=== PATIENT | female | born 1965 | race African-American/Black ===

== ENCOUNTER 2020-03-30 09:22 | Outpatient (REF) | payer MEDICARE, MEDICAID, SELFPAY ==
[2020-03-30 10:52] LABS: Alanine Aminotransferase 16 U/L (0-31); Albumin Level 4.2 g/dL (3.5-5.0); Alkaline Phosphatase 158 U/L (39-117); Anion Gap 12 (12-20); Aspartate Amino Transferase 15 U/L (5-31); Bilirubin Total 0.4 mg/dL (0.0-1.0); Blood Urea Nitrogen 4 mg/dL (9-16); Calcium 8.8 mg/dL (8.4-10.2); Carbon Dioxide 30 mmol/L (22-29); Chloride 104 mmol/L (96-108); Cholesterol 103 mg/dL; Estimated Glomerular Filt Rate > 60; Glucose Fasting 120 mg/dL (60-99); HDL Cholesterol 42 mg/dL; LDL Cholesterol Calculated 50 mg/dl; Potassium 4.2 mmol/l (3.3-5.1); Sodium 142 mmol/L (135-145); Total Protein 7.2 g/dL (6.5-8.0); Triglycerides 55 mg/dL
== END 2020-03-30 09:23 | disposition home or self-care (01) ==
LOC: HO.LAB 09:22
PROVIDERS: PCP Internal Medicine; Visit Provider Internal Medicine
DX: E11.9 Type 2 diabetes mellitus without complications (principal); E78.00 Pure hypercholesterolemia, unspecified
CPT/HCPCS: 36415; 80053; 80061

== ENCOUNTER → 2020-04-07 08:43 | Outpatient (BNVA) | payer MEDICARE, MEDICAID, SELFPAY | PROVIDERS: PCP Internal Medicine; Referring Provider Internal Medicine; Visit Provider Nurse Practitioner | DX: K59.04 Chronic idiopathic constipation (principal); K21.9 Gastro-esophageal reflux disease without esophagitis; R10.13 Epigastric pain; R19.7 Diarrhea, unspecified; R10.10 Upper abdominal pain, unspecified; K92.1 Melena | CPT/HCPCS: 99212; Q3014 ==

== ENCOUNTER 2020-06-15 08:28 | Outpatient (REF) | payer MEDICARE, MEDICAID, SELFPAY ==
--- NOTE | ~2020-06-15 | MM_ITS ---
EXAMINATION: MM SCREENING DIGITAL BREAST TOMOSYNTHESIS, BILATERAL CLINICAL INFORMATION: Screening. Asymptomatic. The lifetime risk of breast cancer based on the Tyrer-Cuzick Model is 5%. COMPARISON: Mammography: 03/05/2019, 02/27/2018, 09/25/2016 TECHNIQUE: Digital breast tomosynthesis is performed in both the craniocaudal and mediolateral oblique views along with computer-aided detection (CAD). Synthesized 2D images are generated from the tomosynthesis. FINDINGS: There are scattered areas of fibroglandular density (ACR BI-RADS breast composition Category b). There are no significant masses, abnormal calcifications, or other abnormalities. Parenchymal pattern is similar to prior studies. No significant changes. MM/MM tomosynthesis screening BI IMPRESSION: No mammographic evidence of malignancy. ASSESSMENT: BI-RADS 1: Negative RECOMMENDATION: Routine annual mammography screening. This patient's information was entered into a reminder system with a target due date for their next mammogram.
== END 2020-06-15 08:29 | disposition home or self-care (01) ==
LOC: HO.MAMMO 08:28
PROVIDERS: Visit Provider Internal Medicine
DX: Z12.31 Encounter for screening mammogram for malignant neoplasm of breast (principal)
CPT/HCPCS: 77063; 77067

== ENCOUNTER → 2020-09-29 08:22 | Outpatient (BNVA) | payer MEDICARE, MEDICAID, SELFPAY | PROVIDERS: Visit Provider Nurse Practitioner | DX: K21.9 Gastro-esophageal reflux disease without esophagitis (principal); K59.04 Chronic idiopathic constipation; K59.03 Drug induced constipation; R10.13 Epigastric pain; T40.2X5D Adverse effect of other opioids, subsequent encounter | CPT/HCPCS: Q3014 ==

== ENCOUNTER 2020-10-18 10:01 | Outpatient (REF) | payer MEDICARE, MEDICAID, SELFPAY ==
[2020-10-18 12:30] LABS: Alanine Aminotransferase 17 U/L (0-31); Albumin Level 4.2 g/dL (3.5-5.0); Alkaline Phosphatase 127 U/L (39-117); Anion Gap 12 (12-20); Aspartate Amino Transferase 17 U/L (5-31); Bilirubin Total 0.5 mg/dL (0.0-1.0); Blood Urea Nitrogen 9 mg/dL (9-16); Calcium 9.9 mg/dL (8.4-10.2); Carbon Dioxide 30 mmol/L (22-29); Chloride 106 mmol/L (96-108); Cholesterol 155 mg/dL; Estimated Glomerular Filt Rate > 60; HDL Cholesterol 48 mg/dL; LDL Cholesterol Calculated 86 mg/dl; Potassium 4.7 mmol/L (3.3-5.1); Sodium 143 mmol/L (135-145); Total Protein 7.5 g/dL (6.5-8.0); Triglycerides 106 mg/dL
[2020-10-18 12:40] LABS: Glucose Fasting 112 mg/dL (60-99)
[2020-10-18 13:52] LABS: Creatinine Urine 127.31 mg/dL; Microalbum/Creatinine Ratio Ur 4.7 ug/mg cr
== END 2020-10-18 10:02 | disposition home or self-care (01) ==
LOC: HO.LAB 10:01
PROVIDERS: Visit Provider Internal Medicine
DX: E11.9 Type 2 diabetes mellitus without complications (principal); E78.5 Hyperlipidemia, unspecified
CPT/HCPCS: 36415; 80053; 80061; 82043

== ENCOUNTER 2020-11-01 08:29 | Outpatient (REF) | payer MEDICARE, MEDICAID, SELFPAY ==
[2020-11-01 12:53] LABS: Thyroid Stimulating Hormone 4.15 uIU/mL (0.32-4.0)
[2020-11-02 11:45] LABS: Follicle Stimulating Hormone 44.4 mIU/mL
== END 2020-11-01 08:30 | disposition home or self-care (01) ==
LOC: HO.LAB 08:29
PROVIDERS: PCP Internal Medicine; Visit Provider Advanced Practice Midwife
DX: R23.2 Flushing (principal); M81.0 Age-related osteoporosis without current pathological fracture
CPT/HCPCS: 36415; 83001; 84443; 99202

== ENCOUNTER → 2020-11-09 13:16 | Outpatient (BNVA) | payer MEDICARE, MEDICAID, SELFPAY | PROVIDERS: PCP Internal Medicine; Visit Provider Advanced Practice Midwife | CPT/HCPCS: Q3014 ==

== ENCOUNTER 2020-11-15 10:04 | Outpatient (REF) | payer MEDICARE, MEDICAID, SELFPAY ==
[2020-11-15 10:53] LABS: MANUAL DIFF FLAG NO
[2020-11-15 10:55] LABS: Basophils Absolute Auto 0.1 X10*3/uL (0.0-0.2); Basophils Percent Auto 0.8 % (0-2); Eosinophils Absolute Auto 0.2 X10*3/uL (0.0-0.4); Eosinophils Percent Auto 2.1 % (0-4); Hematocrit 40.1 % (37-47); Hemoglobin 12.7 g/dl (12.0-16.0); Imm Gran Abs Auto 0.01 X10*3/uL (0.00-0.03); Imm Gran Pct Auto 0.1 % (0.0-0.4); Lymphocytes Absolute Auto 2.4 X10*3/uL (1.2-4.9); Lymphocytes Percent Auto 32.5 % (20-40); Mean Corpuscular HGB Conc 31.7 g/dl (31.0-35.0); Mean Corpuscular Hemoglobin 27.9 pg (27.0-33.0); Mean Corpuscular Volume 87.9 fL (80-98); Mean Platelet Volume 10.3 fL (9.4-12.3); Monocytes Absolute Auto 0.5 X10*3/uL (0.1-1.2); Monocytes Percent Auto 7.3 % (2-11); Neutrophils Absolute Auto 4.2 X10*3/uL (2.0-8.3); Neutrophils Percent Auto 57.2 % (45-73); Platelet Count 302 X10*3/uL (160-400); Red Blood Count 4.56 X10*6/uL (4.20-5.50); Red Cell Distribution Width 13.4 % (11.0-16.0); White Blood Count 7.3 X10*3/uL (4.8-10.8)
[2020-11-15 11:37] LABS: Thyroid Stimulating Hormone 3.35 uIU/mL (0.32-4.0)
[2020-11-15 12:05] LABS: Folate > 20.0 ng/mL (> or = 4.0); Vitamin B12 645 pg/mL (200-900)
[2020-11-19 11:30] LABS: Testosterone, Total 5 ng/dL (2-45)
[2020-11-19 17:05] LABS: Vitamin D 25-OH, D2 <4 ng/mL; Vitamin D 25-OH, D3 26 ng/mL; Vitamin D 25-OH, Total 26 ng/mL (30-100)
[2020-11-20 21:47] LABS: Progesterone <0.1 ng/mL
[2020-11-21 12:46] LABS: Follicle Stimulating Hormone 39.4 mIU/mL; Triiodothyronine T3 Free 2.8 pg/mL (2.3-4.2)
[2020-11-23 01:51] LABS: Estradiol, Ultrasensitive 4 pg/mL
== END 2020-11-15 10:05 | disposition home or self-care (01) ==
LOC: HO.LAB 10:04
PROVIDERS: PCP Internal Medicine; Visit Provider Internal Medicine
DX: R23.2 Flushing (principal); E55.9 Vitamin D deficiency, unspecified; D64.9 Anemia, unspecified
CPT/HCPCS: 36415; 82306; 82607; 82670; 82681; 82746; 83001; 84144; 84403; 84443; 84481; 85025

== ENCOUNTER 2021-05-23 09:40 | Outpatient (REF) | payer MEDICARE, MEDICAID, SELFPAY ==
[2021-05-23 10:21] LABS: MANUAL DIFF FLAG NO
[2021-05-23 10:43] LABS: Basophils Absolute Auto 0.1 X10*3/uL (0.0-0.2); Basophils Percent Auto 0.8 % (0-2); Eosinophils Absolute Auto 0.2 X10*3/uL (0.0-0.4); Eosinophils Percent Auto 1.9 % (0-4); Hematocrit 40.1 % (37.0-47.0); Hemoglobin 12.6 g/dl (12.0-16.0); Imm Gran Abs Auto 0.02 X10*3/uL (0.00-0.03); Imm Gran Pct Auto 0.2 % (0.0-0.4); Lymphocytes Absolute Auto 2.2 X10*3/uL (1.2-4.9); Lymphocytes Percent Auto 25.9 % (20-40); Mean Corpuscular HGB Conc 31.4 g/dl (31.0-35.0); Mean Corpuscular Hemoglobin 28.1 pg (27.0-33.0); Mean Corpuscular Volume 89.3 fL (80.0-98.0); Mean Platelet Volume 10.1 fL (9.4-12.3); Monocytes Absolute Auto 0.8 X10*3/uL (0.1-1.2); Monocytes Percent Auto 9.2 % (2-11); Neutrophils Absolute Auto 5.2 x10*3/uL (2.0-8.3); Platelet Count 334 X10*3/uL (160-400); Red Blood Count 4.49 X10*6/uL (4.20-5.50); Red Cell Distribution Width 13.5 % (11.0-16.0); White Blood Count 8.3 X10*3/uL (4.8-10.8)
[2021-05-23 11:06] LABS: Creatinine Urine 103.46 mg/dL; Microalbumin Urine < 5.0 mg/L
[2021-05-23 11:16] LABS: Alanine Aminotransferase 16 U/L (0-31); Alkaline Phosphatase 151 U/L (39-117); Anion Gap 12 (12-20); Aspartate Amino Transferase 17 U/L (5-31); Bilirubin Total 0.6 mg/dL (0.0-1.0); Blood Urea Nitrogen 14 mg/dL (9-16); Calcium 9.6 mg/dL (8.4-10.2); Carbon Dioxide 29 mmol/L (22-29); Chloride 108 mmol/L (96-108); Cholesterol 131 mg/dL; Estimated Glomerular Filt Rate > 60; Glucose Fasting 106 mg/dL (60-99); HDL Cholesterol 45 mg/dL; LDL Cholesterol Calculated 72 mg/dl; Potassium 4.9 mmol/L (3.3-5.1); Sodium 144 mmol/L (135-145); Total Protein 7.2 g/dL (6.5-8.0); Triglycerides 70 mg/dL
[2021-05-23 11:29] LABS: Free T4 (Free Thyroxine) 0.84 ng/dL (0.71-1.85); Thyroid Stimulating Hormone 1.31 uIU/mL (0.32-4.0)
[2021-05-24 09:41] LABS: Thyroglobulin Antibodies <1 IU/mL (< or = 1); Thyroid Peroxidase Antibodies 1 IU/mL (<9)
[2021-05-29 18:21] LABS: Vitamin D 25-OH, D2 <4 ng/mL; Vitamin D 25-OH, D3 21 ng/mL; Vitamin D 25-OH, Total 21 ng/mL (30-100)
== END 2021-05-23 09:41 | disposition home or self-care (01) ==
LOC: HO.LAB 09:40
PROVIDERS: PCP Internal Medicine; Visit Provider Internal Medicine
DX: R79.89 Other specified abnormal findings of blood chemistry (principal); E11.9 Type 2 diabetes mellitus without complications; E55.9 Vitamin D deficiency, unspecified; E78.5 Hyperlipidemia, unspecified; M79.7 Fibromyalgia
CPT/HCPCS: 36415; 80053; 80061; 82043; 82306; 84439; 84443; 85025; 86376; 86800

== ENCOUNTER 2021-06-16 09:03 | Outpatient (REF) | payer MEDICARE, MEDICAID, SELFPAY ==
--- NOTE | ~2021-06-16 | MM_ITS ---
EXAMINATION: MM SCREENING DIGITAL BREAST TOMOSYNTHESIS, BILATERAL CLINICAL INFORMATION: Screening. Asymptomatic. The lifetime risk of breast cancer based on the Tyrer-Cuzick Model is 7%. COMPARISON: Mammography: 06/15/2020, 03/05/2019, 02/27/2018 TECHNIQUE: Digital breast tomosynthesis is performed in both the craniocaudal and mediolateral oblique views along with computer-aided detection (CAD). Synthesized 2D images are generated from the tomosynthesis. Additional right MLO view is provided. FINDINGS: There are scattered areas of fibroglandular density (ACR BI-RADS breast composition Category b). There are no significant masses, abnormal calcifications, or other abnormalities. There is no developing density or architectural abnormality. No significant changes. MM/MM tomosynthesis screening BI IMPRESSION: No mammographic evidence of malignancy. ASSESSMENT: BI-RADS 1: Negative RECOMMENDATION: Routine annual mammography screening. This patient's information was entered into a reminder system with a target due date for their next mammogram.
== END 2021-06-16 09:04 | disposition home or self-care (01) ==
LOC: HO.MAMMO 09:03
PROVIDERS: Visit Provider Internal Medicine
DX: Z12.31 Encounter for screening mammogram for malignant neoplasm of breast (principal)
CPT/HCPCS: 77063; 77067

== ENCOUNTER → 2021-11-14 10:44 | Outpatient (BNVA) | payer MEDICARE, MEDICAID, SELFPAY | PROVIDERS: PCP Internal Medicine; Referring Provider Internal Medicine; Visit Provider Nurse Practitioner | DX: K59.04 Chronic idiopathic constipation (principal); K21.9 Gastro-esophageal reflux disease without esophagitis | CPT/HCPCS: 99212 ==

== ENCOUNTER 2022-06-04 11:55 | Outpatient (REF) | payer MEDICARE, MEDICAID, SELFPAY ==
[2022-06-04 15:43] LABS: Creatinine Urine 211.36 mg/dL; Microalbum/Creatinine Ratio Ur 6.1 ug/mg cr
[2022-06-04 16:20] LABS: Alanine Aminotransferase 26 U/L (0-31); Albumin Level 4.5 g/dL (3.5-5.0); Alkaline Phosphatase 122 U/L (39-117); Anion Gap 11 (12-20); Aspartate Amino Transferase 22 U/L (5-31); Bilirubin Total 0.4 mg/dL (0.0-1.0); Blood Urea Nitrogen 19 mg/dL (9-16); Calcium 9.7 mg/dL (8.4-10.2); Carbon Dioxide 31 mmol/L (22-29); Chloride 105 mmol/L (96-108); Cholesterol 173 mg/dL; Estimated Glomerular Filt Rate > 60; Glucose Fasting 95 mg/dL (60-99); HDL Cholesterol 58 mg/dL; LDL Cholesterol Calculated 104 mg/dl; Sodium 142 mmol/L (135-145); Total Protein 7.5 g/dL (6.5-8.0); Triglycerides 58 mg/dL
[2022-06-04 16:30] LABS: Vitamin D 25-OH Total 30.6 ng/mL (>30)
== END 2022-06-04 11:56 | disposition home or self-care (01) ==
LOC: HO.LAB 11:55
PROVIDERS: PCP Internal Medicine; Visit Provider Internal Medicine
DX: K21.9 Gastro-esophageal reflux disease without esophagitis (principal); R10.13 Epigastric pain; K59.03 Drug induced constipation; K59.04 Chronic idiopathic constipation; T40.2X5A Adverse effect of other opioids, initial encounter; E78.5 Hyperlipidemia, unspecified; E11.9 Type 2 diabetes mellitus without complications; E55.9 Vitamin D deficiency, unspecified
CPT/HCPCS: 36415; 80053; 80061; 82043; 82306; 99212

== ENCOUNTER 2022-07-31 12:39 | Outpatient (REF) | payer MEDICARE, MEDICAID, SELFPAY ==
--- NOTE | ~2022-07-31 | MM_ITS ---
EXAMINATION: MM SCREENING DIGITAL BREAST TOMOSYNTHESIS, BILATERAL CLINICAL INFORMATION: Screening. Asymptomatic. The lifetime risk of breast cancer based on the Tyrer-Cuzick Model is 7%. COMPARISON: Mammography: 06/16/2021, 06/15/2020, 03/05/2019 TECHNIQUE: Digital breast tomosynthesis is performed in both the craniocaudal and mediolateral oblique views along with computer-aided detection (CAD). Synthesized 2D images are generated from the tomosynthesis. FINDINGS: There are scattered areas of fibroglandular density (ACR BI-RADS breast composition Category b). There are no significant masses, abnormal calcifications, or other abnormalities. Parenchymal pattern is similar to prior studies. There is no developing density or architectural abnormality. The axilla and skin contours are unremarkable. No significant changes. MM/MM tomosynthesis screening BI IMPRESSION: No mammographic evidence of malignancy. ASSESSMENT: BI-RADS 1: Negative RECOMMENDATION: Routine annual mammography screening. This patient's information was entered into a reminder system with a target due date for their next mammogram.
== END 2022-07-31 12:40 | disposition home or self-care (01) ==
LOC: HO.MAMMO 12:39
PROVIDERS: PCP Internal Medicine; Visit Provider Internal Medicine
DX: Z12.31 Encounter for screening mammogram for malignant neoplasm of breast (principal)
CPT/HCPCS: 77063; 77067

== ENCOUNTER 2022-10-30 09:50 | Outpatient (AMB) | payer MEDICARE, MEDICAID, SELFPAY ==
[2022-10-30 09:54] VITALS: BP 122/74; PULSE 59; O2SAT 97; BMI 33.6
--- NOTE | 2022-10-30 09:54 | AM.OFFVISMDC ---
Intake Vital Signs 10/30/22 09:54 Height 5 ft 6 in Weight 208 lb BMI 33.6 BP 122/74 Blood Pressure Location Lt brachial Position Sitting Pulse 59 Pulse Source Pulse Oximeter Temp Source Skin Pulse Oximetry (%) 97 Oxygen Delivery Method Room Air Intake Visit Reasons: SAWV Intake Note: Patient is here for an Annual Wellness Visit. Structures Assembler Required: Yes Structures Assembler Language: Telugu Allergies ciprofloxacin [From CIPRO] Allergy (Severe, Verified 10/30/22 10:08) UNABLE TP MOVE lisinopril [LISINOPRIL] Allergy (Severe, Verified 10/30/22 10:08) ANGIOEDEMA seafood Allergy (Severe, Verified 10/30/22 10:08) Anaphylaxis duloxetine [From CYMBALTA] Allergy (Intermediate, Verified 10/30/22 10:08) ABDOMINAL PAIN (IN HIGHER THAN 30 MG DOSE) Medication List - Last Reconciled 10/30/22 by MONICA Mcbride albuterol sulfate 2.5 mg (3 mL) inhalation Q4-6H PRN 30 days amlodipine 5 mg PO DAILY 90 days atorvastatin 40 mg PO BEDTIME 90 days back brace As directed bisacodyl 10 mg (2 x 5 mg) PO BEDTIME blood sugar diagnostic (FreeStyle Test strips) Use 1 test strip once a day blood-glucose meter (FreeStyle Wren Lite kit) As directed dajkyfwygj-zxnwjplykzxml-rtod 50-325-40 mg 1 tab PO Q6H PRN 30 days dapagliflozin propanediol (Farxiga) 5 mg PO DAILY 90 days dexlansoprazole (Dexilant) 60 mg PO DAILY 90 days diclofenac potassium 50 mg PO BID epinephrine IM estradiol 0.01%(0.1mg/gram) 1 appful vaginal DAILY PRN 30 days fluticasone furoate-vilanterol 200-25 mcg/dose (Breo Ellipta) 1 ea inhalation DAILY fluticasone propionate 50 mcg/actuation 1 spray intranasal DAILY 30 days fremanezumab-vfrm (Ajovy Syringe) mg subcut hydroxyzine pamoate (Vistaril) 25 mg PO BID PRN lancets (TRUEplus Lancets) USE 1 LANCET EVERY DAY leg brace (Knee Brace Large-XLarge) As directed linaclotide (Linzess) 290 mcg PO DAILY 90 days metoprolol succinate ER 25 mg PO DAILY 90 days montelukast 10 mg PO DAILY oxycodone-acetaminophen 5-325 mg 1 tab PO TID PRN sertraline 100 mg PO DAILY [wipes As directed] zolpidem 10 mg PO BEDTIME PRN HPI SAWV HPI Details Patient is a 56-year-old female presents today for subsequent wellness visit.? Patient of Dr. Prince. Patient did have a negative mammogram 07/2022.? Patient reports history of normal Pap smear in 2021 that was done in [place], patient does have a history of total hysterectomy in 2012, she does not know if she still has her cervix or no. Up-to-date with immunizations. [place] of care was reviewed with the patient and she was provided with a screening schedule.? End of life planning was discussed with the patient and she was provided with healthcare proxy and MOLST forms. Patient is a Telugu-speaking and Juan Antonio was helping with interpretation. ? [facility] Medical History Abnormal TSH Anxiety Constipation due to opioid therapy Diabetes mellitus Dyslipidemia Essential hypertension Fibromyalgia Hot flashes Knee pain Lumbar degenerative disc disease Moderate major depression, single episode URI (upper respiratory infection) Surgical History H/O colonoscopy History of arthroscopy of right knee History of total abdominal hysterectomy and bilateral salpingo-oophorectomy History of tubal ligation Family History Father Diabetes Hypertension Mother Diabetes Hypertension Family/Other FH: mental illness Brother No problems noted. Sister No problems noted. Son No problems noted. Daughter No problems noted. Social History Household Members: Family Housing: House Alcohol intake: never Patient Tobacco Use Status: Never used Tobacco e-Cigarette/Vaping Use: Never Used Second Hand Smoke Exposure: No service: No Current occupational status: disabled Cognitive needs: No Hearing needs: No Vision needs: Yes Questionnaire Medicare Wellness Checkup What [age] 65-69 (55) What gender do you identify with?: female During the past 4 weeks, how much have you been bothered by emotional problems such as feeling anxious, depressed, irritable, sad or downhearted, and blue?: extremely During the past 4 weeks, has your physical & emotional health limited your social activities with family, friends, neighbors, or groups?: quite a bit During the past 4 weeks, how much bodily pain have you generally had?: severe pain During the past 4 weeks, was someone available to help you if you needed & wanted help?: yes, quite a bit During the past 4 weeks, what was the hardest physical activity you could do for at least 2 minutes?: heavy Can you get to places out of walking distance without help? (For eg., can you travel alone on buses, taxis or drive your car?): No Can you go shopping for groceries or clothes without someone's help?: No Can you prepare your own meals?: Yes Can you do your housework without help?: No Because of any health problems, do you need the help of another person with your personal care needs such as eating, bathing, dressing or getting around the house?: Yes Can you handle your own money without help?: Yes During the past 4 weeks, how would you rate your health in general?: fair During the past 4 weeks how have things been going for you?: good & bad parts about equal Are you having difficulties driving your car?: sometimes Do you always fasten your seat belt when you are in a car?: yes, usually During past 4 weeks, have you been bothered by the following: never: Problems using the telephone?, seldom: Trouble eating well?, sometimes: Falling or dizzy when standing up, often: Teeth or denture problems? and Tiredness or fatigue? and always: Sexual problems? Have you fallen 2 or more times in the past year?: Yes Are you afraid of falling?: Yes Are you a smoker?: no During the past 4 weeks, how many drinks of wine, beer, or other alcoholic beverages did you have?: no alcohol at all Do you exercise for about 20 minutes 3 or more times a week?: yes, some of the time Have you been given information to help with the following?: yes: Hazards in your house that might hurt you? and yes: Keeping track of your medications? How often do you have trouble taking medicines the way you have been told to take them?: sometimes I take medicine as prescribed How confident are you that you can control & manage most of your health problems?: somewhat confident What is your race?: or origin or descent Mini Mental State Exam (MMSE) Orientation What is the (year) (season) (date) (day) (month)?: year, season, date, day and month Score Score: 5 Activity of Daily Living Bathing - sponge bath, tub bath or shower: receives help in bathing only one body part (such as back or leg) Dressing - getting clothes from closets & drawers, including inner/outer garments & fasteners.: gets clothes & gets dressed without help, except for help tying shoes Toileting - going to the 'toilet room' for urine/bowel elimination & cleaning self/arranging clothes: goes to toilet room, cleans self, arranges clothes without help Transfer: moves in & out of bed and chair without help (may use support object) Continence: controls urination/bowel movements completely by self Feeding: feeds self without help Total Score: 0 Information obtained from: patient Using telephone: independent Traveling: dependent Shopping: dependent Preparing meals: needs assistance Housework: dependent Taking medicine: needs assistance Managing money: independent PHQ-9 Over the last 2 weeks, how often have you been bothered by any of the following problems? 1. Little interest or pleasure in doing things: more than half the days 2. Feeling down, depressed, or hopeless: nearly every day 3. Trouble falling or staying asleep, or sleeping too much: nearly every day 4. Feeling tired or having little energy: nearly every day 5. Poor appetite or overeating: nearly every day 6. Feeling bad about yourself - or that you are a failure or have let yourself or your family down: nearly every day 7. Trouble concentrating on things, such as reading the newspaper or watching television: nearly every day 8. Moving or speaking so slowly that other people could have noticed. Or the opposite - being so fidgety or restless that you have been moving around a lot more than usual: nearly every day 9. Thoughts that you would be better off or of hurting yourself in some way: not at all Total score: 23 Depression Screening Interpretation: Positive Depression Screening Follow-up: Existing condition and In treatment 35195 - PHQ-9 Billing: Yes Source: Developed by Drs. Kaiser Huber, Kodak Robledo and colleagues, with an educational jarrell from [employer]. Thrive Questionnaire Date Thrive assessed: 07/30/22 I am a: Patient What is your living situation today?: I have a steady place to live Within the past 12 months, did the food you bought not last and you didn't have the money to get more?: Never true Within the past 12 months, did you worry whether your food would run out before you got money to buy more?: Never true Do you have trouble paying for medicines?: No Do you have trouble getting transportation to medical appointments?: No Do you have trouble paying your heating and electricity bill?: No Do you have trouble taking care of your child, family member or friend?: No Do you have trouble with day-to-day activities such as bathing, preparing meals, shopping, managing finances, etc.?: No Are you currently unemployed and looking for a job?: No Are you interested in more education?: No Please select the resources that you would like help with: None Currently or been in a relationship where the following occur: no concerns reported DEEPTHI-7 AMB Questionnaire DEEPTHI-7 Date DEEPTHI - 7 assessed: 07/30/22 Feeling nervous, anxious, or on edge: 1 = Several days Not being able to stop or control worryin = Several days Worrying too much about different things: 2 = More than half the days Trouble relaxin = Several days Being so restless that it is hard to sit still: 1 = Several days Becoming easily annoyed or irritable: 0 = Not at all Feeling afraid as if something awful might happen: 3 = Nearly every day Total DEEPTHI-7 score (0-4 normal; 5-9 mild; 10-14 moderate; 15-21 severe): 9 Source: Developed by Drs. Kaiser Huber, Kodak Robledo and colleagues, with an educational jarrell from [employer]. DEEPTHI-7 Assessment Billing DEEPTHI-7 Assessment Tool: DEEPTHI-7 Assessment 19032 AUDIT C Alcohol Use Questionnaire (AUDIT-C) 1. How often do you have a drink containing alcohol?: Never Total Score: 0 Score Reviewed/Action Taken: No Physical Exam Vital Signs: Last Vital Signs Pulse 59 10/30/22 09:54 BP 122/74 10/30/22 09:54 Pulse Ox 97 10/30/22 09:54 Oxygen Delivery Method Room Air 10/30/22 09:54 BMI result Body Mass Index 33.6 Const General: cooperative and no acute distress Orientation/consciousness: patient oriented x3 HEENT Other: Whisper test: pass Neuro Other: Balance: Normal Get up and walk: unable to Romberg: negative Tandem gait: able to General: patient oriented x3 Results AMB Hemoglobin A1c AMB Hemoglobin A1c 5.1 % Last Edit by KELBY Salomon on 10/30/22 10:16 Results Reviewed Results Reviewed: Laboratory Last Values Hgb A1c (Clinic) 5.1 % (4.0-6.0) 10/30/22 10:13 Assessment & Plan Assessment & Plan (1) Knee pain: Code(s): M25.569 - Pain in unspecified knee Plan: Patient is followed by pain management in [place] and she is on Percocet. Patient (2) Lumbar degenerative disc disease: Code(s): M51.36 - Other intervertebral disc degeneration, lumbar region Plan: Same as above (3) Moderate major depression, single episode: Code(s): F32.1 - Major depressive disorder, single episode, moderate Plan: Continue current treatment Continue to follow-up with therapist and psychiatrist at [facility] (4) Adult general medical exam: Code(s): Z00.00 - Encounter for general adult medical examination without abnormal findings (5) Anxiety: Code(s): F41.9 - Anxiety disorder, unspecified Plan: Continue current treatment Continue to follow-up with therapist and psychiatrist at [facility] (6) Chronic idiopathic constipation: Code(s): K59.04 - Chronic idiopathic constipation Plan: Continue current treatment Continue to follow-up with gastroenterology as scheduled (7) GERD (gastroesophageal reflux disease): Code(s): K21.9 - Gastro-esophageal reflux disease without esophagitis Plan: Continue to follow-up gastroenterology as scheduled Continue current treatment Avoid GERD trigger foods Do not lay down 2-3 hours after evening meal (8) Fibromyalgia: Code(s): M79.7 - Fibromyalgia Plan: Patient is followed by pain management in [place] (9) Essential hypertension: Code(s): I10 - Essential (primary) hypertension Plan: Continue current treatment Low-sodium diet Goal BP equal or less than 140/90 (10) Dyslipidemia: Code(s): E78.5 - Hyperlipidemia, unspecified Plan: Atorvastatin 40 mg at bedtime Low-carbohydrate diet (11) Diabetes mellitus: Code(s): E11.9 - Type 2 diabetes mellitus without complications Qualifiers: Diabetes mellitus type: type 2 Diabetes mellitus adjunct faculty for medical terminology insulin use: without custodial use Diabetes mellitus complication status: without complication Qualified Code(s): E11.9 - Type 2 diabetes mellitus without complications Plan: A1c 5.1 today Continue current treatment Low-carbohydrate diet Orders: Orders AMB Hemoglobin A1c Today E11.9 - Type 2 diabetes mellitus without complications Quality Reporting (2019) Depression/Bipolar (159/160/161/177) PHQ-9: Total score: 23 Coding Level of Care Code Medicare Subsequent (G0439) Diagnoses Knee pain M25.569 Lumbar degenerative disc disease M51.36 Moderate major depression, single episode F32.1 Adult general medical exam Z00.00 Anxiety F41.9 Chronic idiopathic constipation K59.04 GERD (gastroesophageal reflux disease) K21.9 Fibromyalgia M79.7 Essential hypertension I10 Dyslipidemia E78.5 Diabetes mellitus E11.9 Diabetes mellitus type: type 2 Diabetes mellitus adjunct faculty for medical terminology insulin use: without adjunct faculty for medical terminology use Diabetes mellitus complication status: without complication CPT Codes Advance Care Planning - Time spent: 1-15 minutes, on File ([id number]) Additional Codes DEEPTHI-7 Assessment Billing - DEEPTHI-7 Assessment Tool: DEEPTHI-7 Assessment 26838 ([id number]) Advance Care Planning Date of discussion: 10/30/22 Who was present: pt and medical physicist Forms completed: None Time spent: 1-15 minutes, on File Actual minutes spent: 3 Did not discuss due to Cultural/Spiritual beliefs: No
== END 2022-10-30 10:32 | disposition home or self-care (01) ==
PROVIDERS: Visit Provider Nurse Practitioner Family
DX: Z00.00 Encounter for general adult medical examination without abnormal findings (principal); F32.1 Major depressive disorder, single episode, moderate; F41.9 Anxiety disorder, unspecified; K21.9 Gastro-esophageal reflux disease without esophagitis; I10 Essential (primary) hypertension; E11.9 Type 2 diabetes mellitus without complications; M25.569 Pain in unspecified knee; M51.36 Other intervertebral disc degeneration, lumbar region; K59.04 Chronic idiopathic constipation; M79.7 Fibromyalgia; E78.5 Hyperlipidemia, unspecified
CPT/HCPCS: 1123F; 83036; G0439

== ENCOUNTER 2022-12-04 10:54 | Outpatient (AMB) | payer MEDICARE, MEDICAID, SELFPAY ==
--- NOTE | 2022-12-04 10:56 | A.OFFVIS_ITS ---
Intake Vital Signs 12/04/22 11:01 Height 5 ft 6 in Weight 203 lb 11.314 oz BMI 32.9 BP 130/76 Blood Pressure Location Lt brachial Position Sitting Pulse 63 Intake Visit Reasons: 6 month follow up Intake Note: Patient presents to in office visit today in 6 months follow up of [facility]. CC: Patient c/o RUQ abdominal pain with inflammation on that area for about a month. She also c/o epigastric pain, constipation, hearburn, and acid reflux. Patient states bisacodyl and Linzess help her with constipation symptoms. Senior Clinical Project Manager Required: Yes Senior Clinical Project Manager Language: J2Ee Android Developer Name: kamala Accompanied by: Self / Same As Patient Allergies ciprofloxacin [From CIPRO] Allergy (Severe, Verified 12/04/22 11:04) UNABLE TP MOVE lisinopril [LISINOPRIL] Allergy (Severe, Verified 12/04/22 11:04) ANGIOEDEMA seafood Allergy (Severe, Verified 12/04/22 11:04) Anaphylaxis duloxetine [From CYMBALTA] Allergy (Intermediate, Verified 12/04/22 11:04) ABDOMINAL PAIN (IN HIGHER THAN 30 MG DOSE) HPI 6 month follow up HPI Details Assessment & Plan (1) GERD (gastroesophageal reflux diseas e): Code(s): K21.9 - Gastro-esophageal reflux disease without esophagitis Plan: Ethiopian #Arando Live She continues to do well on her Dexilant and LInzess with bisacodyl. There is some question that she is taking something else for breakthrough GERD that is being rx'ed by her PCP. ROV 6 mos. (2) Constipation due to opioid therapy: Code(s): K59.03 - Drug induced constipation; T40.2X5A - Adverse effect of other opioids, initial encounter Medications: Refilled dexlansoprazole (D exilant) 60 mg PO DAILY 90 days 90 caps 3RF K21.9 - Gastro-eso phageal reflux dis ease without esoph agitis linaclotide (Linze ss) 290 mcg PO DAILY 90 days 90 caps 6R F K59.04 - Chronic i diopathic constipa tion bisacodyl 2 tab lets by mouth at b edtime 10 mg (2 x 5 mg) P O BEDTIME 60 tabs 6RF K59.04 - Chronic i diopathic constipa tion TODAY'S VISIT Ethiopian #Hilda Kim SHe has a new problem of pain in the RUQ and swelling that started about a month ago. The pain and swelling extends to the flank and all the way to the back. It makes her have to lean to the left to alleviate it. She can not relate it to eating. IT seems to resolve when she moves her bowels a lot. THis happens about twice a week and will last about 2 hours. At times it keeps her awake at night. It is described as aching pain in ab front and pressure in the flank/back. It is a 7/10. She does have a lot of back problems and pain. SHe had a recent MRI of her back but this was in [place] where her PCP is - she will ask them to send it to us. I will get an XR of the thoracic spine. She feels that the Linzess/bisacodyl and ab dexilant are working well. I don't know if this is gas trapping/bowel spasm a whether this is radicular thoracic back pain. Will give her a trial of simethicone to see if this affects the symptoms wait for her MRI and order an x-ray of the thoracic back since this is likely not the part of the spine the MRI is concentrating on. Also can consider ultrasound of the gallbladder but since the symptoms are not clearly related to eating this seems less likely. Return office visit in 4 weeks. [facility] Medical History Abnormal TSH Knee pain Lumbar degenerative disc disease Moderate major depression, single episode Hot flashes Anxiety URI (upper respiratory infection) Fibromyalgia Constipation due to opioid therapy Essential hypertension Dyslipidemia Diabetes mellitus Surgical History H/O colonoscopy History of total abdominal hysterectomy and bilateral salpingo-oophorectomy History of tubal ligation History of arthroscopy of right knee Family History Father Diabetes Hypertension Mother Diabetes Hypertension Family/Other FH: mental illness Brother No problems noted. Sister No problems noted. Son No problems noted. Daughter No problems noted. Social History Household Members: Family Housing: House Alcohol intake: never Patient Tobacco Use Status: Never used Tobacco e-Cigarette/Vaping Use: Never Used Second Hand Smoke Exposure: No service: No Current occupational status: disabled Cognitive needs: No Hearing needs: No Vision needs: Yes Review of Systems Const Denies fatigue, Denies fever(s), Denies night sweats, Denies poor appetite and Denies weight loss ENT Reports Normal hearing present, Denies dental pain, Denies dysphagia, Denies hearing loss, Denies mouth pain, Denies odynophagia, Denies throat swelling, Denies tongue swelling and Reports other (Dentition adequate) Card Reports no additional complaints Resp Reports no additional complaints GI Reports abdominal pain, Denies melena, Reports bloating, Denies hematochezia, Reports constipation, Denies GI cramping, Denies dysphagia, Denies excessive flatus, Denies early satiety, Reports heartburn, Denies diarrhea, Denies nausea, Denies odynophagia, Denies vomiting and Denies hematemesis Reports flank pain Musc Reports back pain Skin/Breast Denies pruritus, Denies lesions, Denies rash and Denies jaundice Neuro Reports Normal hearing present and Denies Abnormal speech present Endo Denies fatigue Aller/Immun Denies throat swelling and Denies tongue swelling Physical Exam Vital Signs: Last Vital Signs Pulse 63 12/04/22 11:01 BP 130/76 12/04/22 11:01 BMI result Body Mass Index 32.9 Const General: cooperative, no acute distress, well developed and well groomed Nutritional Appearance: well nourished and obese Orientation/consciousness: oriented to person, oriented to place and oriented to time Limitations: No language barrier HEENT Head: Yes normocephalic and Yes atraumatic Eyes General: appearance normal, both eyes and all related structures Pupils: Equal, round and reactive pupils present Neck Neck: Yes normal visual inspection and Yes no lymphadenopathy Thyroid: Thyroid normal Resp Effort & Inspection: normal respiratory effort and able to speak in complete sentences Auscultation: clear to auscultation bilaterally Cardio Rate: regular rate Rhythm: regular rhythm Heart sounds: Normal, physiologic split S2 sound present Peripheral pulses: radial pulses present and posterior tibial pulses present GI Inspection: No distended, No Abdominal panniculus present and Yes obesity Palpation (GI): Soft to palpation, nontender, no guarding, not rigid and No hepatosplenomegaly present Percussion: Yes normal to percussion Auscultation: normal bowel sounds Rectal Exam - Female: deferred Skin General skin exam: no rashes or lesions noted, turgor normal, skin not dry, no jaundice, No spider nevi and no striae Rashes: no rashes Nails: normal Neuro General: oriented to person, oriented to place and oriented to time Cranial nerves: Yes Equal, round and reactive pupils present and Yes Normal hearing present Speech: No Abnormal speech present Extrem General: Yes normal to inspection, No clubbing, No cyanosis and No edema Psych Appearance: grossly normal and well kempt Mental Status: mental status grossly normal Speech and movement: Normal speech and movement present Affect: normal affect Attitude: cooperative Thought process: Normal thought process present and not confabulating Thought content: Normal thought content present Insight: Fair insight present (Psych) Judgement: Fair judgement present (Psych) Assessment & Plan Assessment & Plan (1) Chronic idiopathic constipation: Code(s): K59.04 - Chronic idiopathic constipation Plan: Ethiopian #Hilda Live SHe has a new problem of pain in the RUQ and swelling that started about a month ago. The pain and swelling extends to the flank and all the way to the back. It makes her have to lean to the left to alleviate it. She can not relate it to eating. IT seems to resolve when she moves her bowels a lot. THis happens about twice a week and will last about 2 hours. At times it keeps her awake at night. It is described as aching pain in ab front and pressure in the flank/back. It is a 7/10. She does have a lot of back problems and pain. SHe had a recent MRI of her back but this was in [place] where her PCP is - she will ask them to send it to us. I will get an XR of the thoracic spine. She feels that the Linzess/bisacodyl and ab dexilant are working well. I don't know if this is gas trapping/bowel spasm a whether this is radicular thoracic back pain. Will give her a trial of simethicone to see if this affects the symptoms wait for her MRI and order an x-ray of the thoracic back since this is likely not the part of the spine the MRI is concentrating on. Also can consider ultrasound of the gallbladder but since the symptoms are not clearly related to eating this seems less likely. Return office visit in 4 weeks.. (2) GERD (gastroesophageal reflux disease): Code(s): K21.9 - Gastro-esophageal reflux disease without esophagitis (3) Back pain: Code(s): M54.9 - Dorsalgia, unspecified Orders: Orders XR thoracic spine 2V Today M54.9 - Dorsalgia, unspecified Medications: New simethicone after meals 180 mg PO QID 30 days 120 caps 3RF Refilled dexlansoprazole (Dexilant) 60 mg PO DAILY 90 days 90 caps 3RF K21.9 - Gastro- esophageal reflux disease without esophagitis linaclotide (Linzess) 290 mcg PO DAILY 90 days 90 caps 6RF K59.04 - Chronic idiopathic constipation bisacodyl 2 tablets by mouth at bedtime 10 mg (2 x 5 mg) PO BEDTIME 60 tabs 6RF K59.04 - Chronic idiopathic constipation Coding Level of Care Code Est Pt Level 3 (60954) Diagnoses Chronic idiopathic constipation K59.04 GERD (gastroesophageal reflux disease) K21.9 Back pain M54.9
[2022-12-04 11:01] VITALS: BP 130/76; PULSE 63; BMI 32.9
== END 2022-12-04 11:36 | disposition home or self-care (01) ==
PROVIDERS: Visit Provider Nurse Practitioner
DX: K59.04 Chronic idiopathic constipation (principal); K21.9 Gastro-esophageal reflux disease without esophagitis; M54.9 Dorsalgia, unspecified
CPT/HCPCS: 99213

== ENCOUNTER → 2022-12-04 10:54 | Outpatient (BNVA) | payer MEDICARE, MEDICAID, SELFPAY | PROVIDERS: Visit Provider Nurse Practitioner | DX: K59.04 Chronic idiopathic constipation (principal); K21.9 Gastro-esophageal reflux disease without esophagitis; M54.9 Dorsalgia, unspecified | CPT/HCPCS: 99212 ==

== ENCOUNTER 2022-12-05 15:36 | Outpatient (AMB) | payer MEDICARE, MEDICAID, SELFPAY ==
--- NOTE | 2022-12-05 15:45 | AM.OFFWIN_ITS ---
Intake Vital Signs 12/05/22 15:46 Weight 192 lb BP 130/80 Blood Pressure Location Rt brachial Position Sitting Pulse 63 Pulse Source Pulse Oximeter Pulse Oximetry (%) 98 Oxygen Delivery Method Room Air Intake Visit Reasons: EST/palpitations? Intake Note: Patient here for chest tightness that has been happening for about 1 week. pt states she feels like a trembling inside and feels like her heart is going to come out of her chest. Patient Tobacco Use Status: Never used Tobacco Allergies ciprofloxacin [From CIPRO] Allergy (Severe, Verified 12/05/22 15:49) UNABLE TP MOVE lisinopril [LISINOPRIL] Allergy (Severe, Verified 12/05/22 15:49) ANGIOEDEMA seafood Allergy (Severe, Verified 12/05/22 15:49) Anaphylaxis duloxetine [From CYMBALTA] Allergy (Intermediate, Verified 12/05/22 15:49) ABDOMINAL PAIN (IN HIGHER THAN 30 MG DOSE) Do you need a note to return to daycare/school/sports/work: No HPI HPI Comments History of Present Illness Details The patient presents to urgent care for evaluation of palpitations. She states that she feels a fluttering sensation in her chest that when it occurs makes her feel like her heart is going to come out through her mouth. The episodes do not last very long and are sporadic in nature. They are not precipitated by any specific activity and she can feel them during the day or laying down at night. There is no associated symptoms such as nausea vomiting diaphoresis nor chest pain or shortness of breath. Patient is concerned this may be attributable to anxiety but she is unsure. [facility] Medical History Abnormal TSH Knee pain Lumbar degenerative disc disease Moderate major depression, single episode Hot flashes Anxiety URI (upper respiratory infection) Fibromyalgia Constipation due to opioid therapy Essential hypertension Dyslipidemia Diabetes mellitus Surgical History H/O colonoscopy History of total abdominal hysterectomy and bilateral salpingo-oophorectomy History of tubal ligation History of arthroscopy of right knee Family History Father Diabetes Hypertension Mother Diabetes Hypertension Family/Other FH: mental illness Brother No problems noted. Sister No problems noted. Son No problems noted. Daughter No problems noted. Social History Household Members: Family Housing: House Alcohol intake: never Patient Tobacco Use Status: Never used Tobacco e-Cigarette/Vaping Use: Never Used Second Hand Smoke Exposure: No service: No Current occupational status: disabled Cognitive needs: No Hearing needs: No Vision needs: Yes Physical Exam Vital Signs: Last Vital Signs Pulse 63 12/05/22 15:46 BP 130/80 12/05/22 15:46 Pulse Ox 98 12/05/22 15:46 Oxygen Delivery Method Room Air 12/05/22 15:46 Const General: healthy appearing and no acute distress Orientation/consciousness: patient oriented x3 Eyes Corneas: corneas normal Pupils: Equal, round and reactive pupils present Chest Chest palpation & inspection: no tenderness Resp Effort & Inspection: normal respiratory effort and able to speak in complete sentences Auscultation: clear to auscultation bilaterally Cardio Palpation: normal PMI Rate: regular rate Rhythm: regular rhythm Heart sounds: S1 normal heart sound present and S2 normal heart sound present GI Palpation (GI): nontender Neuro General: patient oriented x3 Cranial nerves: Yes Equal, round and reactive pupils present Psych Appearance: grossly normal Attitude: cooperative Assessment & Plan Assessment & Plan (1) Palpitations: Code(s): R00.2 - Palpitations Plan EKG in office shows normal sinus rhythm at 60 beats per minute no ST T-wave changes to suggest acute ischemia, interpreted by me. Symptoms more consistent with anxiety. Counseled patient on return to urgent care or ER if she develops symptoms such as chest pressure or tightness abdominal pain or pressure jaw pain or tightness left arm pain, diaphoresis nausea. Patient reports that she has not had any of those symptoms. The discomfort she is experiencing does not sound consistent with cardiac etiology. I am going to give the patient a trial of Xanax to take when she has these episodes and see if there is any relief with that. She will follow up with her doctor or return here for any reason. Coding Level of Care Code Est Pt Level 3 (46424) Diagnoses Palpitations R00.2
[2022-12-05 15:46] VITALS: BP 130/80; PULSE 63; O2SAT 98
== END 2022-12-05 16:38 | disposition home or self-care (01) ==
PROVIDERS: PCP Internal Medicine; Visit Provider Emergency Medicine
DX: R00.2 Palpitations (principal)
CPT/HCPCS: 99213

== ENCOUNTER 2023-01-06 10:26 | Outpatient (REF) | payer MEDICARE, MEDICAID, SELFPAY ==
--- NOTE | ~2023-01-06 | XR_ITS ---
EXAMINATION: XR THORACOLUMBAR SPINE CLINICAL INFORMATION: Dorsalgia COMPARISON: None available. TECHNIQUE: 3 views of the thoracic spine FINDINGS: No acute visible fracture or dislocation. Slight dextrocurvature of the midthoracic spine. Multilevel degenerative changes with disc space narrowing, osteophyte ridge, and facet arthropathy. Vertebral body heights and disc spaces are otherwise maintained. Posterior elements are intact. Paraspinal soft tissues are unremarkable. Visualized portions of the chest and upper abdomen are unremarkable. XR/XR thoracic spine 2V IMPRESSION: 1. No acute visible fracture or dislocation. 2. Slight dextrocurvature of the midthoracic spine. 3. Multilevel degenerative changes.
== END 2023-01-06 10:27 | disposition home or self-care (01) ==
LOC: HO.XRAY 10:26
PROVIDERS: PCP Internal Medicine; Visit Provider Nurse Practitioner
DX: M54.9 Dorsalgia, unspecified (principal)
CPT/HCPCS: 72070

== ENCOUNTER 2023-01-10 10:41 | Outpatient (AMB) | payer MEDICARE, MEDICAID, SELFPAY ==
--- NOTE | 2023-01-10 10:46 | MHC.OFFVIS ---
Intake Vital Signs 01/10/23 10:50 Height 5 ft 6 in Weight 210 lb 12.191 oz BMI 34.0 BP 162/80 H Blood Pressure Location Lt brachial Position Sitting Pulse 58 Intake Visit Reasons: 4 week follow up Intake Note: Patient presents to in office visit today in 4 weeks follow up of [facility]IC anc X ray. CC: Patient reports she has been doing better from abdominal pain and heartburn. Denies having any new GI symptoms or concerns today. Hydraulic Miner Required: Yes Hydraulic Miner Language: Albanian Accompanied by: Self / Same As Patient Allergies ciprofloxacin [From CIPRO] Allergy (Severe, Verified 01/10/23 10:52) UNABLE TP MOVE lisinopril [LISINOPRIL] Allergy (Severe, Verified 01/10/23 10:52) ANGIOEDEMA seafood Allergy (Severe, Verified 01/10/23 10:52) Anaphylaxis duloxetine [From CYMBALTA] Allergy (Intermediate, Verified 01/10/23 10:52) ABDOMINAL PAIN (IN HIGHER THAN 30 MG DOSE) HPI 4 week follow up HPI Details Assessment & Plan (1) Chronic idiopathic constipation: Code(s): K59.04 - Chronic idiopathic constipation Plan: [place]ian #Hilda Live SHe has a new problem of pain in the RUQ and swelling that started about a month ago. The pain and swelling extends to the flank and all the way to the back. It makes her have to lean to the left to alleviate it. She can not relate it to eating. IT seems to resolve when she moves her bowels a lot. THis happens about twice a week and will last about 2 hours. At times it keeps her awake at night. It is described as aching pain in ab front and pressure in the flank/back. It is a 7/10. She does have a lot of back problems and pain. SHe had a recent MRI of her back but this was in [place] where her PCP is - she will ask them to send it to us. I will get an XR of the thoracic spine. She feels that the Linzess/bisacodyl and ab dexilant are working well. I don't know if this is gas trapping/bowel spasm a whether this is radicular thoracic back pain. Will give her a trial of simethicone to see if this affects the symptoms wait for her MRI and order an x-ray of the thoracic back since this is likely not the part of the spine the MRI is concentrating on. Also can consider ultrasound of the gallbladder but since the symptoms are not clearly related to eating this seems less likely. Return office visit in 4 weeks.. (2) GERD (gastroesophageal reflux disease): Code(s): K21.9 - Gastro-esophageal reflux disease without esophagitis (3) Back pain: Code(s): M54.9 - Dorsalgia, unspecified Orders: Orders XR thoracic spine 2V Today M54.9 - Dorsalgia, unspecified Medications: New simethicone aft er meals 180 mg PO QID 30 days 120 caps 3RF Refilled dexlansoprazole (D exilant) 60 mg PO DAILY 90 days 90 caps 3RF K21.9 - Gastro-eso phageal reflux dis ease without esoph agitis linaclotide (Linze ss) 290 mcg PO DAILY 90 days 90 caps 6R F K59.04 - Chronic i diopathic constipa tion bisacodyl 2 tab lets by mouth at b edtime 10 mg (2 x 5 mg) P O BEDTIME 60 tabs 6RF K59.04 - Chronic i diopathic constipa tion X-RAY OF THORACIC SPINE Not read at the time of this note TODAY'S VISIT [place]ian #Carmen Live She tells me that the simethicone has completely solve the problem of the swelling filling her right upper quadrant! She is very happy with this! With this she continues on her Linzess and bisacodyl, and her Dexilant and she feels satisfied with her GI regimen. I thank her for getting the thoracic x-ray done but has not yet been read by Radiology. I will keep an eye out for this and call her if there is any severe abnormality. Return office visit in 6 months. [facility] Medical History Abnormal TSH Knee pain Lumbar degenerative disc disease Moderate major depression, single episode Hot flashes Anxiety URI (upper respiratory infection) Fibromyalgia Constipation due to opioid therapy Essential hypertension Dyslipidemia Diabetes mellitus Surgical History H/O colonoscopy History of total abdominal hysterectomy and bilateral salpingo-oophorectomy History of tubal ligation History of arthroscopy of right knee Family History Father Diabetes Hypertension Mother Diabetes Hypertension Family/Other FH: mental illness Brother No problems noted. Sister No problems noted. Son No problems noted. Daughter No problems noted. Social History Household Members: Family Housing: House Alcohol intake: never Patient Tobacco Use Status: Never used Tobacco e-Cigarette/Vaping Use: Never Used Second Hand Smoke Exposure: No service: No Current occupational status: disabled Cognitive needs: No Hearing needs: No Vision needs: Yes Review of Systems Const Denies fatigue, Denies fever(s), Denies night sweats, Denies poor appetite and Denies weight loss ENT Reports Normal hearing present, Denies dental pain, Denies dysphagia, Denies hearing loss, Denies mouth pain, Denies odynophagia, Denies throat swelling, Denies tongue swelling and Reports other (Dentition adequate) Card Reports no additional complaints Resp Reports no additional complaints GI Denies abdominal pain, Denies melena, Reports bloating, Denies hematochezia, Reports constipation, Denies GI cramping, Denies dysphagia, Denies excessive flatus, Denies early satiety, Reports heartburn, Denies diarrhea, Denies nausea, Denies odynophagia, Denies vomiting and Denies hematemesis Skin/Breast Denies pruritus, Denies lesions, Denies rash and Denies jaundice Neuro Reports Normal hearing present and Denies Abnormal speech present Endo Denies fatigue Aller/Immun Denies throat swelling and Denies tongue swelling Physical Exam Const General: cooperative, no acute distress, well developed and well groomed Nutritional Appearance: well nourished and obese Orientation/consciousness: oriented to person, oriented to place and oriented to time Limitations: language barrier HEENT Head: Yes normocephalic and Yes atraumatic Eyes General: appearance normal, both eyes and all related structures Pupils: Equal, round and reactive pupils present Neck Neck: Yes normal visual inspection and Yes no lymphadenopathy Thyroid: Thyroid normal Resp Effort & Inspection: normal respiratory effort and able to speak in complete sentences Auscultation: clear to auscultation bilaterally Cardio Rate: regular rate Rhythm: regular rhythm Heart sounds: Normal, physiologic split S2 sound present Peripheral pulses: radial pulses present and posterior tibial pulses present GI Inspection: No distended, No Abdominal panniculus present and Yes obesity Palpation (GI): Soft to palpation, nontender, no guarding, not rigid and No hepatosplenomegaly present Percussion: Yes normal to percussion Auscultation: normal bowel sounds Rectal Exam - Female: deferred Skin General skin exam: no rashes or lesions noted, turgor normal, skin not dry, no jaundice, No spider nevi and no striae Rashes: no rashes Nails: normal Neuro General: oriented to person, oriented to place and oriented to time Cranial nerves: Yes Equal, round and reactive pupils present and Yes Normal hearing present Speech: No Abnormal speech present Extrem General: Yes normal to inspection, No clubbing, No cyanosis and No edema Psych Appearance: grossly normal and well kempt Mental Status: mental status grossly normal Speech and movement: Normal speech and movement present Affect: normal affect Attitude: cooperative Thought process: Normal thought process present and not confabulating Thought content: Normal thought content present Insight: Limited insight present (Psych) Judgement: Limited judgement present (Psych) Assessment & Plan Assessment & Plan (1) Back pain: Code(s): M54.9 - Dorsalgia, unspecified Plan: X-RAY OF THORACIC SPINE Not read at the time of this note TODAY'S VISIT [place] #Carmen Live She tells me that the simethicone has completely solve the problem of the swelling filling her right upper quadrant! She is very happy with this! With this she continues on her Linzess and bisacodyl, and her Dexilant and she feels satisfied with her GI regimen. I thank her for getting the thoracic x-ray done but has not yet been read by Radiology. I will keep an eye out for this and call her if there is any severe abnormality. Return office visit in 6 months. (2) GERD (gastroesophageal reflux disease): Code(s): K21.9 - Gastro-esophageal reflux disease without esophagitis (3) Chronic idiopathic constipation: Code(s): K59.04 - Chronic idiopathic constipation Medications: Refilled dexlansoprazole (Dexilant) 60 mg PO DAILY 90 caps 3RF 90 days K21.9 - Gastro-esophageal reflux disease without esophagitis linaclotide (Linzess) 290 mcg PO DAILY 90 caps 6RF 90 days K59.04 - Chronic idiopathic constipation simethicone after meals 180 mg PO QID 120 caps 6RF 30 days bisacodyl 2 tablets by mouth at bedtime 10 mg (2 x 5 mg) PO BEDTIME 60 tabs 6RF K59.04 - Chronic idiopathic constipation Coding Level of Care Code Est Pt Level 3 (91013) Diagnoses Back pain M54.9 GERD (gastroesophageal reflux disease) K21.9 Chronic idiopathic constipation K59.04
[2023-01-10 10:50] VITALS: BP 162/80; PULSE 58; BMI 34.0
== END 2023-01-10 11:15 | disposition home or self-care (01) ==
PROVIDERS: PCP Internal Medicine; Visit Provider Nurse Practitioner
DX: M54.9 Dorsalgia, unspecified (principal); K21.9 Gastro-esophageal reflux disease without esophagitis; K59.04 Chronic idiopathic constipation
CPT/HCPCS: 99213

== ENCOUNTER → 2023-01-10 10:41 | Outpatient (BNVA) | payer MEDICARE, MEDICAID, SELFPAY | PROVIDERS: PCP Internal Medicine; Visit Provider Nurse Practitioner | DX: K59.04 Chronic idiopathic constipation (principal); K21.9 Gastro-esophageal reflux disease without esophagitis; M54.9 Dorsalgia, unspecified | CPT/HCPCS: 99212 ==

== ENCOUNTER 2023-02-28 09:06 | Outpatient (REF) | payer MEDICARE, MEDICAID, SELFPAY ==
[2023-02-28 10:49] LABS: Alanine Aminotransferase 16 U/L (0-31); Albumin Level 4.1 g/dL (3.5-5.0); Alkaline Phosphatase 114 U/L (39-117); Anion Gap 11 (12-20); Aspartate Amino Transferase 17 U/L (5-31); Bilirubin Total 0.3 mg/dL (0.0-1.0); Blood Urea Nitrogen 14 mg/dL (9-16); Calcium 9.4 mg/dL (8.4-10.2); Carbon Dioxide 31 mmol/L (22-29); Chloride 106 mmol/L (96-108); Cholesterol 130 mg/dL (<200); Estimated Glomerular Filt Rate > 60; Glucose Fasting 104 mg/dL (60-99); HDL Cholesterol 52 mg/dL (>40); LDL Cholesterol Calculated 65 mg/dL (<100); Potassium 4.7 mmol/L (3.3-5.1); Sodium 143 mmol/L (135-145); Total Protein 7.4 g/dL (6.5-8.0); Triglycerides 66 mg/dL (<150)
[2023-02-28 12:33] LABS: Creatinine Urine 156.47 mg/dL; Microalbum/Creatinine Ratio Ur 5.1 ug/mg cr (<30)
== END 2023-02-28 09:07 | disposition home or self-care (01) ==
LOC: HO.LAB 09:06
PROVIDERS: PCP Internal Medicine; Visit Provider Internal Medicine
DX: E11.9 Type 2 diabetes mellitus without complications (principal); E78.5 Hyperlipidemia, unspecified
CPT/HCPCS: 36415; 80053; 80061; 82043; 82570

== ENCOUNTER 2023-03-06 16:42 | Outpatient (AMB) | payer MEDICARE, MEDICAID, SELFPAY ==
[2023-03-06 16:51] VITALS: BP 118/70; BMI 33.9
--- NOTE | 2023-03-06 16:51 | MHC.PC.OV ---
Vital Signs 03/06/23 16:51 Height 5 ft 6 in Weight 210 lb BMI 33.9 BP 118/70 Blood Pressure Location Lt brachial Position Sitting Intake Visit Reasons: 4 month f/u Intake Note: Patient here for a 4 month follow up Board Attendant Required: No Accompanied by: Self / Same As Patient Allergies ciprofloxacin [From CIPRO] Allergy (Severe, Verified 03/06/23 17:02) UNABLE TP MOVE lisinopril [LISINOPRIL] Allergy (Severe, Verified 03/06/23 17:02) ANGIOEDEMA seafood Allergy (Severe, Verified 03/06/23 17:02) Anaphylaxis duloxetine [From CYMBALTA] Allergy (Intermediate, Verified 03/06/23 17:02) ABDOMINAL PAIN (IN HIGHER THAN 30 MG DOSE) Medication List - Last Reconciled 03/06/23 by Jannette Ahmadi MD albuterol sulfate 2.5 mg (3 mL) inhalation Q4-6H PRN 30 days alprazolam (Xanax) 0.5 mg PO BID PRN amlodipine 5 mg PO DAILY 90 days atorvastatin 40 mg PO BEDTIME back brace As directed bisacodyl 10 mg (2 x 5 mg) PO BEDTIME blood sugar diagnostic (FreeStyle Test strips) Use 1 test strip once a day blood-glucose meter (FreeStyle [place] Lite kit) As directed oladsasebj-bbhkhozevuiky-ynbm 50-325-40 mg 1 tab PO Q6H PRN 30 days dapagliflozin propanediol (Farxiga) 5 mg PO DAILY 90 days dexlansoprazole (Dexilant) 60 mg PO DAILY 90 days diclofenac potassium 50 mg PO BID epinephrine IM estradiol 0.01%(0.1mg/gram) 1 appful vaginal DAILY PRN 30 days fluticasone furoate-vilanterol 200-25 mcg/dose (Breo Ellipta) 1 ea inhalation DAILY fluticasone propionate 50 mcg/actuation 1 spray intranasal DAILY 30 days fremanezumab-vfrm (Ajovy Syringe) 225 mg subcut .monthly hydroxyzine pamoate (Vistaril) 25 mg PO BID PRN ketotifen fumarate 0.025%(0.035%) 1 drp ophthalmic (eye) BID PRN lancets (TRUEplus Lancets) USE 1 LANCET EVERY DAY leg brace (Knee Brace Large-XLarge) As directed linaclotide (Linzess) 290 mcg PO DAILY 90 days metoprolol succinate ER 25 mg PO DAILY 90 days montelukast 10 mg PO DAILY oxycodone-acetaminophen 5-325 mg 1 tab PO TID PRN propranolol 10 mg PO BID sertraline 100 mg PO DAILY simethicone 180 mg PO QID 30 days [wipes As directed] zolpidem 10 mg PO BEDTIME PRN Tobacco use date assessed: 07/30/22 Dental Screening Dental Screen Date: 03/06/23 Did you have a dental visit in the last 12 months?: Yes Did you have a dental problem in the last 6 months where you did not have access to dental care?: No Was dental information given to patient?: Patient has dentist HPI HPI Comments History of Present Illness Details This is a 57-year-old female with diabetes mellitus type 2, hypertension, dyslipidemia and moderate major depression that comes today for follow-up on her conditions. A1c within goal. Blood pressure stable. LDL within goal. Depression well controlled with SSRIs. Complains of vaginal pruritus that started about 4 months ago associated with irritation aggravated by toilet paper. She had a hysterectomy therefore no need for Pap smears. [facility] Medical History (Updated 03/06/23 @ 17:13 by Jannette Ahmadi MD) Abnormal TSH Knee pain Lumbar degenerative disc disease Moderate major depression, single episode Hot flashes Anxiety URI (upper respiratory infection) Fibromyalgia Constipation due to opioid therapy Essential hypertension Dyslipidemia Diabetes mellitus Surgical History H/O colonoscopy History of total abdominal hysterectomy and bilateral salpingo-oophorectomy History of tubal ligation History of arthroscopy of right knee Family History Father Diabetes Hypertension Mother Diabetes Hypertension Family/Other FH: mental illness Brother No problems noted. Sister No problems noted. Son No problems noted. Daughter No problems noted. Social History Household Members: Family Housing: House Alcohol intake: never Patient Tobacco Use Status: Never used Tobacco e-Cigarette/Vaping Use: Never Used Second Hand Smoke Exposure: No service: No Current occupational status: disabled Cognitive needs: No Hearing needs: No Vision needs: Yes Questionnaire Thrive Questionnaire Date Thrive assessed: 07/30/22 DEEPTHI-7 AMB Questionnaire DEEPTHI-7 Date DEEPTHI - 7 assessed: 07/30/22 Source: Developed by Drs. Kaiser Huber, Jayla Montes, Kodak Lopez and colleagues, with an educational jarrell from [employer]. Review of Systems Const All systems reviewed & are unremarkable except as noted in HPI and below Eyes Reports no additional complaints, Denies change in vision and Denies other visual disturbances Card Denies chest pain at rest, Denies chest pain with activity, Denies edema, Denies irregular heart rhythm, Denies claudication, Denies dyspnea, Denies dyspnea on exertion, Denies orthopnea, Denies paroxysmal nocturnal dyspnea and Denies slow heart rate Resp Denies cough, Denies dyspnea and Denies dyspnea on exertion GI Denies abdominal pain, Denies change in bowel habits, Denies excessive flatus, Denies nausea and Denies vomiting Denies urinary incontinence, Denies urinary hesitancy and Denies urinary urgency Musc Denies abnormal gait, Denies atrophy, Denies deformity and Denies limited range of motion Skin/Breast Denies bleeding lesions, Denies changing lesions and Denies rash Neuro Denies abnormal gait, Denies behavioral changes and Denies lack of coordination Psych Denies behavioral changes Physical exam (Primary Care) Vital Signs: Last Vital Signs BP 118/70 03/06/23 16:51 BMI result Body Mass Index 33.9 Tobacco/Smoking Status: Tobacco use Status Tobacco use date assessed 07/30/22 03/06/23 16:52 Patient Tobacco Use Status Never used Tobacco 03/06/23 16:52 e-Cigarette/Vaping Use Never Used 03/06/23 16:52 Thrive Assessment: Date of Thrive Assessment Date Thrive assessed 07/30/22 03/06/23 16:52 Eyes General: appearance normal, both eyes and all related structures Eyelids: Yes eyelids normal Conjunctivae: conjunctivae normal Neck Neck: Yes normal visual inspection and Yes supple Resp Effort & Inspection: normal respiratory effort Auscultation: clear to auscultation bilaterally Cardio Jugular venous distension: no JVD Rate: regular rate Rhythm: regular rhythm Heart sounds: S1 normal heart sound present and S2 normal heart sound present Extrem General: Yes full ROM Office Procedures Flu Questionnaire Does the patient have a severe egg allergy?: No Results AMB Hemoglobin A1c AMB Hemoglobin A1c 5.7 % Last Edit by KELBY Lance on 03/06/23 16:55 Immunizations flu vacc [id number] 6mos up(PF) 60 mcg(15 mcgx4)/0.5 mL IM syringe Performing Provider: Jannette Ahmadi MD [facility] [place] Documented (not given) by: KELBY Lance on 03/06/23 16:53 Reason Not Given: Patient Refused Results Reviewed Results Reviewed: Laboratory Last Values Hgb A1c (Clinic) 5.7 % (4.0-6.0) 03/06/23 16:45 Assessment and Plan Assessment & Plan (1) Moderate major depression, single episode: Code(s): F32.1 - Major depressive disorder, single episode, moderate Plan: Continue SSRIs (2) Diabetes mellitus: Code(s): E11.9 - Type 2 diabetes mellitus without complications Qualifiers: Diabetes mellitus complication status: without complication Diabetes mellitus [facility] insulin use: without local company intermodal truck driver use Diabetes mellitus type: type 2 Qualified Code(s): E11.9 - Type 2 diabetes mellitus without complications Plan: Continue Farxiga. A1c goal is equal or less than 7%. (3) Dyslipidemia: Code(s): E78.5 - Hyperlipidemia, unspecified Plan: Continue statins. LDL goal is less than 70 (4) Essential hypertension: Code(s): I10 - Essential (primary) hypertension Plan: Continue amlodipine. Blood pressure goal is equal or less than 130/80. Orders: Orders Influenza [id number] Immunization Today Z23 - Encounter for immunization AMB Hemoglobin A1c Today E11.9 - Type 2 diabetes mellitus without complications Referrals [employer]/STEWARDESS Referral N89.8 - Other specified noninflammatory disorders of vagina Medications: Refilled [wipes] As directed 240 ea 6RF N89.8 - Other specified noninflammatory disorders of vagina estradiol 0.01%(0.1mg/gram) for 14 days 1 appful vaginal DAILY 30 days PRN 42.5 grams 0RF vaginal irritation Discontinued alprazolam (Xanax) Discontinued Reason: Patient Completed Course 0.5 mg PO BID PRN 14 tabs 0RF anxiety Coding Level of Care Code Est Pt Level 4 (74697) Diagnoses Moderate major depression, single episode F32.1 Type 2 diabetes mellitus without complication, without long-term current use of insulin E11.9 Diabetes mellitus complication status: without complication Diabetes mellitus local company intermodal truck driver insulin use: without local company intermodal truck driver use Diabetes mellitus type: type 2 Dyslipidemia E78.5 Essential hypertension I10 Time Spent (min) 23
== END 2023-03-06 17:12 | disposition home or self-care (01) ==
PROVIDERS: PCP Internal Medicine; Visit Provider Internal Medicine
DX: E11.9 Type 2 diabetes mellitus without complications (principal); F32.1 Major depressive disorder, single episode, moderate; E78.5 Hyperlipidemia, unspecified; I10 Essential (primary) hypertension
CPT/HCPCS: 83036; 99214

== ENCOUNTER → 2023-08-06 13:00 | Outpatient (BNV) | payer MEDICARE, MEDICAID, SELFPAY | PROVIDERS: Visit Provider Radiology Diagnostic Radiology | DX: Z12.31 Encounter for screening mammogram for malignant neoplasm of breast (principal) | CPT/HCPCS: 77063; 77067 ==

== ENCOUNTER 2023-08-06 14:12 | Outpatient (REF) | payer MEDICARE, MEDICAID, SELFPAY | END 2023-08-06 14:13 | disposition home or self-care (01) | LOC: HO.MAMMO 14:12 | PROVIDERS: Visit Provider Internal Medicine | DX: Z12.31 Encounter for screening mammogram for malignant neoplasm of breast (principal) | CPT/HCPCS: 77063; 77067 ==

== ENCOUNTER 2023-08-06 15:34 | Outpatient (AMB) | payer MEDICARE, MEDICAID, SELFPAY ==
[2023-08-06 16:23] VITALS: BP 112/72; BMI 34.7
--- NOTE | 2023-08-06 16:23 | MHC.PC.OV ---
Vital Signs 08/06/23 16:23 Height 5 ft 6 in Weight 215 lb BMI 34.7 BP 112/72 Blood Pressure Location Lt brachial Position Sitting Intake Visit Reasons: dm Intake Note: Patient here for a follow up DM Tap Grinder Required: No Accompanied by: Self / Same As Patient Allergies ciprofloxacin [From CIPRO] Allergy (Severe, Verified 08/06/23 16:42) UNABLE TP MOVE lisinopril [LISINOPRIL] Allergy (Severe, Verified 08/06/23 16:42) ANGIOEDEMA seafood Allergy (Severe, Verified 08/06/23 16:42) Anaphylaxis duloxetine [From CYMBALTA] Allergy (Intermediate, Verified 08/06/23 16:42) ABDOMINAL PAIN (IN HIGHER THAN 30 MG DOSE) Medication List - Last Reconciled 08/06/23 by Jannette Ahmadi MD albuterol sulfate 2.5 mg (3 mL) inhalation Q4-6H PRN 30 days amlodipine 5 mg PO DAILY 90 days atorvastatin 40 mg PO BEDTIME back brace As directed bisacodyl 10 mg (2 x 5 mg) PO BEDTIME blood sugar diagnostic (FreeStyle Test strips) Use 1 test strip once a day blood-glucose meter (FreeStyle [place] Lite kit) As directed ktlyiznilh-myuwornprnoeb-ryol 50-325-40 mg 1 tab PO Q6H PRN 30 days clonidine HCl 0.1 mg PO BID dapagliflozin propanediol (Farxiga) 5 mg PO DAILY 90 days dexlansoprazole (Dexilant) 60 mg PO DAILY 90 days diclofenac potassium 50 mg PO BID epinephrine IM estradiol 0.01%(0.1mg/gram) 1 appful vaginal DAILY PRN 30 days fluticasone furoate-vilanterol 200-25 mcg/dose (Breo Ellipta) 1 ea inhalation DAILY fluticasone propionate 50 mcg/actuation 1 spray intranasal DAILY 30 days fremanezumab-vfrm (Ajovy Syringe) 225 mg subcut .monthly hydroxyzine pamoate (Vistaril) 50 mg PO BID PRN ketotifen fumarate 0.025%(0.035%) 1 drp ophthalmic (eye) BID PRN lancets (TRUEplus Lancets) USE 1 LANCET EVERY DAY leg brace (Knee Brace Large-XLarge) As directed linaclotide (Linzess) 290 mcg PO DAILY 90 days metoprolol succinate ER 25 mg PO DAILY 90 days montelukast 10 mg PO DAILY oxycodone-acetaminophen 5-325 mg 1 tab PO TID PRN propranolol 10 mg PO BID sertraline 100 mg PO DAILY simethicone 180 mg PO QID 30 days [wipes As directed] zolpidem 10 mg PO BEDTIME PRN Tobacco use date assessed: 08/06/23 Dental Screening Dental Screen Date: 08/06/23 Did you have a dental visit in the last 12 months?: No Did you have a dental problem in the last 6 months where you did not have access to dental care?: No Was dental information given to patient?: Patient has dentist HPI HPI Comments History of Present Illness Details This is a 57-year-old female with diabetes mellitus type 2, hypertension, dyslipidemia and moderate major depression that comes today for follow-up on her conditions. A1c within goal. Blood pressure stable. Last LDL was within goal and lipid panel will be repeated. On sertraline for her moderate major depression which has markedly improved and this is follow by Psychiatry. Denies any chest pain or shortness on breath. She has obese with a BMI of 34.7 and has tried diet and exercise with no improvement. I will start her on Mounjaro to help in this matter. [facility] Medical History (Updated 03/06/23 @ 17:13 by Jannette Ahmadi MD) Abnormal TSH Knee pain Lumbar degenerative disc disease Moderate major depression, single episode Hot flashes Anxiety URI (upper respiratory infection) Fibromyalgia Constipation due to opioid therapy Essential hypertension Dyslipidemia Diabetes mellitus Surgical History H/O colonoscopy History of total abdominal hysterectomy and bilateral salpingo-oophorectomy History of tubal ligation History of arthroscopy of right knee Family History Father Diabetes Hypertension Mother Diabetes Hypertension Family/Other FH: mental illness Brother No problems noted. Sister No problems noted. Son No problems noted. Daughter No problems noted. Social History Household Members: Family Housing: House Alcohol intake: never Patient Tobacco Use Status: Never used Tobacco e-Cigarette/Vaping Use: Never Used Second Hand Smoke Exposure: No service: No Current occupational status: disabled Cognitive needs: No Hearing needs: No Vision needs: Yes Questionnaire PHQ-9 Over the last 2 weeks, how often have you been bothered by any of the following problems? 1. Little interest or pleasure in doing things: several days 2. Feeling down, depressed, or hopeless: several days 3. Trouble falling or staying asleep, or sleeping too much: more than half the days 4. Feeling tired or having little energy: several days 5. Poor appetite or overeating: more than half the days 6. Feeling bad about yourself - or that you are a failure or have let yourself or your family down: several days 7. Trouble concentrating on things, such as reading the newspaper or watching television: several days 8. Moving or speaking so slowly that other people could have noticed. Or the opposite - being so fidgety or restless that you have been moving around a lot more than usual: several days 9. Thoughts that you would be better off or of hurting yourself in some way: not at all Total score: 10 Depression Screening Interpretation: Positive Depression Screening Follow-up: Existing condition, In treatment, Community Mental Health Worker F/U and Follow-up Visit Requested Depression Screening Done: Yes 75017 - PHQ-9 Billing: Yes Source: Developed by Drs. Kaiser Huber, Jayla Montes, Kodak Lopez and colleagues, with an educational jarrell from [employer]. Thrive Questionnaire Date Thrive assessed: 07/30/22 AUDIT C Alcohol Use Questionnaire (AUDIT-C) 1. How often do you have a drink containing alcohol?: Never Total Score: 0 DEEPTHI-7 AMB Questionnaire DEEPTHI-7 Date DEEPTHI - 7 assessed: 08/06/23 Feeling nervous, anxious, or on edge: 2 = More than half the days Not being able to stop or control worryin = Not at all Worrying too much about different things: 1 = Several days Trouble relaxin = Several days Being so restless that it is hard to sit still: 2 = More than half the days Becoming easily annoyed or irritable: 1 = Several days Feeling afraid as if something awful might happen: 1 = Several days Total DEEPTHI-7 score (0-4 normal; 5-9 mild; 10-14 moderate; 15-21 severe): 8 Source: Developed by Drs. Kaiser Huber, Jayla Montes, Kodak Lopez and colleagues, with an educational jarrell from [employer]. DEEPTHI-7 Assessment Billing DEEPTHI-7 Assessment Tool: DEEPTHI-7 Assessment 90027 Review of Systems Const All systems reviewed & are unremarkable except as noted in HPI and below Card Denies chest pain at rest, Denies chest pain with activity, Denies edema, Denies irregular heart rhythm, Denies claudication, Denies dyspnea, Denies dyspnea on exertion, Denies orthopnea, Denies paroxysmal nocturnal dyspnea and Denies slow heart rate Resp Denies cough, Denies dyspnea and Denies dyspnea on exertion Physical exam (Primary Care) Vital Signs: Last Vital Signs BP 112/72 08/06/23 16:23 BMI result Body Mass Index 34.7 BMI Assessment/Plan discussion: High BMI High, discussed plan: lifestyle, weight reduction, dietary and physical activity Tobacco/Smoking Status: Tobacco use Status Tobacco use date assessed 08/06/23 08/06/23 16:35 Patient Tobacco Use Status Never used Tobacco 08/06/23 16:35 e-Cigarette/Vaping Use Never Used 08/06/23 16:35 PHQ-9: PHQ-9 Score PHQ-9: Total score 10 08/06/23 16:45 Depression Screening Interpretation: Positive Depression Screening Follow-up: Existing condition, In treatment, Community Mental Health Worker F/U and Follow-up Visit Requested Thrive Assessment: Date of Thrive Assessment Date Thrive assessed 07/30/22 08/06/23 16:35 Resp Effort & Inspection: normal respiratory effort Auscultation: clear to auscultation bilaterally Cardio Jugular venous distension: no JVD Rate: regular rate Rhythm: regular rhythm Heart sounds: S1 normal heart sound present and S2 normal heart sound present Extrem General: Yes full ROM Results AMB Hemoglobin A1c AMB Hemoglobin A1c 5.9 % Last Edit by KELBY Lance on 08/06/23 16:40 Results Reviewed Results Reviewed: Laboratory Last Values Hgb A1c (Clinic) 5.9 % (4.0-6.0) 08/06/23 16:22 Assessment and Plan Assessment & Plan (1) Moderate major depression, single episode: Code(s): F32.1 - Major depressive disorder, single episode, moderate Plan: Continue sertraline. Follow-up with psychiatry. (2) Diabetes mellitus: Code(s): E11.9 - Type 2 diabetes mellitus without complications Qualifiers: Diabetes mellitus type: type 2 Diabetes mellitus soda fountain operator insulin use: without soda fountain operator use Diabetes mellitus complication status: without complication Qualified Code(s): E11.9 - Type 2 diabetes mellitus without complications Plan: Continue Farxiga. Start Mounjaro. A1c goal is equal or less than 7%. (3) Dyslipidemia: Code(s): E78.5 - Hyperlipidemia, unspecified Plan: Continue statins. LDL goal is less than 70. (4) Essential hypertension: Code(s): I10 - Essential (primary) hypertension Plan: Continue amlodipine and clonidine. Blood pressure goal is equal or less than 130/80. Orders: Orders Microalbumin, Random (w Creat) Today E11.9 - Type 2 diabetes mellitus without complications Vitamin D 25-OH Total Today E55.9 - Vitamin D deficiency, unspecified AMB Hemoglobin A1c Today E11.9 - Type 2 diabetes mellitus without complications Lipid Panel Today E78.5 - Hyperlipidemia, unspecified Comprehensive [place]. Panel Fast Today E11.9 - Type 2 diabetes mellitus without complications Medications: New tirzepatide (Mounjaro) 2.5 mg (0.5 mL) subcut QWEEK 2 mL 0RF 4 weeks E11.9 - Type 2 diabetes mellitus without complications Coding Level of Care Code Est Pt Level 4 (03908) Complex EM visit Add On G2211 Diagnoses Moderate major depression, single episode F32.1 Type 2 diabetes mellitus without complication, without long-term current use of insulin E11.9 Diabetes mellitus type: type 2 Diabetes mellitus senior living insulin use: without soda fountain operator use Diabetes mellitus complication status: without complication Dyslipidemia E78.5 Essential hypertension I10 Additional Codes DEEPTHI-7 Assessment Billing - DEEPTHI-7 Assessment Tool: DEEPTHI-7 Assessment 29326 ([id number]) Time Spent (min) 23
== END 2023-08-06 16:52 | disposition home or self-care (01) ==
PROVIDERS: PCP Internal Medicine; Visit Provider Internal Medicine
DX: E11.9 Type 2 diabetes mellitus without complications (principal); E78.5 Hyperlipidemia, unspecified; I10 Essential (primary) hypertension; F32.1 Major depressive disorder, single episode, moderate
CPT/HCPCS: 83036; 99214; G2211

== ENCOUNTER 2023-08-19 11:07 | Outpatient (AMB) | payer MEDICARE, MEDICAID, SELFPAY ==
[2023-08-19 11:12] VITALS: BP 125/80; PULSE 52; BMI 34.8
--- NOTE | 2023-08-19 11:12 | MHC.OFFVIS ---
Vital Signs 08/19/23 11:12 Height 5 ft 6 in Weight 215 lb 9.793 oz BMI 34.8 BP 125/80 Blood Pressure Location Lt brachial Position Sitting Pulse 52 Intake Visit Reasons: 6 months follow up Intake Note: Lucille returns to in office 6 months follow up of CIC. CC: Patient reports doing well and denies having any new GI concerns today. Allergies ciprofloxacin [From CIPRO] Allergy (Severe, Verified 08/19/23 11:22) UNABLE TP MOVE lisinopril [LISINOPRIL] Allergy (Severe, Verified 08/19/23 11:22) ANGIOEDEMA seafood Allergy (Severe, Verified 08/19/23 11:22) Anaphylaxis duloxetine [From CYMBALTA] Allergy (Intermediate, Verified 08/19/23 11:22) ABDOMINAL PAIN (IN HIGHER THAN 30 MG DOSE) HPI HPI 6 months follow up: Details: Assessment & Plan (1) Back pain: Code(s): M54.9 - Dorsalgia, unspecified [place]ari #Carmen Live She tells me that the simethicone has completely solve the problem of the swelling filling her right upper quadrant! She is very happy with this! With this she continues on her Linzess and bisacodyl, and her Dexilant and she feels satisfied with her GI regimen. I thank her for getting the thoracic x-ray done but has not yet been read by Radiology. I will keep an eye out for this and call her if there is any severe abnormality. Return office visit in 6 months. (2) GERD (gastroesophageal reflux disease): Code(s): K21.9 - Gastro-esophageal reflux disease without esophagitis (3) Chronic idiopathic constipation: Code(s): K59.04 - Chronic idiopathic constipation Medications: Refilled dexlansoprazole (Dexilant) 60 mg PO DAILY 90 caps 3RF 90 days K21.9 - Gastro-esophageal reflux disease without esophagitis linaclotide (Linzess) 290 mcg PO DAILY 90 caps 6RF 90 days K59.04 - Chronic idiopathic constipation simethicone after meals 180 mg PO QID 120 caps 6RF 30 days bisacodyl 2 tablets by mouth at bedtime 10 mg (2 x 5 mg) PO BEDTIME 60 tabs 6RF K59.04 - Chronic idiopathic constipation X-RAY OF THORACIC SPINE Not read at the time of this note TODAY'S VISIT Qatari #[id number], Natalio She says she is NOT on Mounjaro ? availability. I did let her know that when or if she does start this it could cause worsening constipation and she has been consult me if this becomes problematic. She is doing well and is stable on her LInzess, simethicone, and bisacody. ROV 6 mos. PFS Medical History Abnormal TSH Knee pain Lumbar degenerative disc disease Moderate major depression, single episode Hot flashes Anxiety URI (upper respiratory infection) Fibromyalgia Constipation due to opioid therapy Essential hypertension Dyslipidemia Diabetes mellitus Surgical History H/O colonoscopy History of total abdominal hysterectomy and bilateral salpingo-oophorectomy History of tubal ligation History of arthroscopy of right knee Family History Father Diabetes Hypertension Mother Diabetes Hypertension Family/Other FH: mental illness Brother No problems noted. Sister No problems noted. Son No problems noted. Daughter No problems noted. Social History Household Members: Family Housing: House Alcohol intake: never Patient Tobacco Use Status: Never used Tobacco e-Cigarette/Vaping Use: Never Used Second Hand Smoke Exposure: No service: No Current occupational status: disabled Cognitive needs: No Hearing needs: No Vision needs: Yes Review of Systems Const Denies fatigue, Denies fever(s), Denies night sweats, Denies poor appetite and Denies weight loss ENT Reports Normal hearing present, Denies dental pain, Denies dysphagia, Denies hearing loss, Denies mouth pain, Denies odynophagia, Denies throat swelling, Denies tongue swelling and Reports other (Dentition adequate) Card Reports no additional complaints Resp Reports no additional complaints GI Details: Denies abdominal pain, Denies melena, Denies bloating, Denies hematochezia, Reports constipation, Denies GI cramping, Denies dysphagia, Denies excessive flatus, Denies early satiety, Reports heartburn, Denies diarrhea, Denies nausea, Denies odynophagia, Denies vomiting and Denies hematemesis Skin/Breast Denies pruritus, Denies lesions, Denies rash and Denies jaundice Neuro Reports Normal hearing present and Denies Abnormal speech present Endo Denies fatigue Aller/Immun Denies throat swelling and Denies tongue swelling Physical Exam Vital Signs: Last Vital Signs Pulse 52 08/19/23 11:12 BP 125/80 08/19/23 11:12 BMI result Body Mass Index 34.8 Const General: cooperative, no acute distress, well developed and well groomed Nutritional Appearance: well nourished and obese Orientation/consciousness: oriented to person, oriented to place and oriented to time Limitations: language barrier HEENT Head: Yes normocephalic and Yes atraumatic Eyes General: appearance normal, both eyes and all related structures Pupils: Equal, round and reactive pupils present Neck Neck: Yes normal visual inspection and Yes no lymphadenopathy Thyroid: Thyroid normal Resp Effort & Inspection: normal respiratory effort and able to speak in complete sentences Auscultation: clear to auscultation bilaterally Cardio Rate: regular rate Rhythm: regular rhythm Heart sounds: Normal, physiologic split S2 sound present Peripheral pulses: radial pulses present and posterior tibial pulses present GI Inspection: No distended, No Abdominal panniculus present and Yes obesity Palpation (GI): Soft to palpation, nontender, no guarding, not rigid and No hepatosplenomegaly present Percussion: Yes normal to percussion Auscultation: normal bowel sounds Rectal Exam - Female: deferred Skin General skin exam: no rashes or lesions noted, turgor normal, skin not dry, no jaundice, No spider nevi and no striae Rashes: no rashes Nails: normal Neuro General: oriented to person, oriented to place and oriented to time Cranial nerves: Yes Equal, round and reactive pupils present and Yes Normal hearing present Speech: No Abnormal speech present Extrem General: Yes normal to inspection, No clubbing, No cyanosis and No edema Psych Appearance: grossly normal and well kempt Mental Status: mental status grossly normal Speech and movement: Normal speech and movement present Affect: normal affect Attitude: cooperative Thought process: Normal thought process present and not confabulating Thought content: Normal thought content present Insight: Fair insight present (Psych) and Limited insight present (Psych) Judgement: Fair judgement present (Psych) and Limited judgement present (Psych) Assessment & Plan Assessment & Plan (1) GERD (gastroesophageal reflux disease): Code(s): K21.9 - Gastro-esophageal reflux disease without esophagitis Category: Medical (2) Chronic idiopathic constipation: Code(s): K59.04 - Chronic idiopathic constipation Category: Medical Plan Qatari #[id number], Natalio She says she is NOT on Mounjaro ? availability. I did let her know that when or if she does start this it could cause worsening constipation and she has been consult me if this becomes problematic. She is doing well and is stable on her LInzess, simethicone, and bisacody. ROV 6 mos. Medications: Refilled bisacodyl 2 tablets by mouth at bedtime 10 mg (2 x 5 mg) PO BEDTIME 60 tabs 6RF K59.04 - Chronic idiopathic constipation linaclotide (Linzess) 290 mcg PO DAILY 90 caps 6RF 90 days K59.04 - Chronic idiopathic constipation dexlansoprazole (Dexilant) 60 mg PO DAILY 90 caps 3RF 90 days K21.9 - Gastro-esophageal reflux disease without esophagitis simethicone after meals 180 mg PO QID 120 caps 6RF 30 days Discontinued tirzepatide (Mounjaro) Discontinued Reason: Patient Completed Course 2.5 mg (0.5 mL) subcut QWEEK 4 weeks 2 mL 0RF E11.9 - Type 2 diabetes mellitus without complications Coding Level of Care Code Est Pt Level 3 (84635) Diagnoses GERD (gastroesophageal reflux disease) K21.9 Chronic idiopathic constipation K59.04
== END 2023-08-19 11:43 | disposition home or self-care (01) ==
PROVIDERS: PCP Internal Medicine; Visit Provider Nurse Practitioner
DX: K21.9 Gastro-esophageal reflux disease without esophagitis (principal); K59.04 Chronic idiopathic constipation
CPT/HCPCS: 99213

== ENCOUNTER → 2023-08-19 11:07 | Outpatient (BNVA) | payer MEDICARE, MEDICAID, SELFPAY | PROVIDERS: PCP Internal Medicine; Visit Provider Nurse Practitioner | DX: K59.04 Chronic idiopathic constipation (principal); K21.9 Gastro-esophageal reflux disease without esophagitis | CPT/HCPCS: 99212 ==

== ENCOUNTER 2023-11-04 12:44 | Outpatient (AMB) | payer MEDICARE, MEDICAID, SELFPAY ==
--- NOTE | 2023-11-04 12:53 | A.OFFVIS_ITS ---
Intake Vital Signs 11/04/23 12:54 Height 5 ft 6 in Weight 207 lb 4 oz BMI 33.4 BP 122/80 Blood Pressure Location Lt brachial Position Sitting Pulse 67 Pulse Source Pulse Oximeter Pulse Oximetry (%) 95 Oxygen Delivery Method Room Air Intake Visit Reasons: sawv Help Desk Representative Required: No Accompanied by: Self / Same As Patient Allergies ciprofloxacin [From CIPRO] Allergy (Severe, Verified 11/04/23 13:22) UNABLE TP MOVE lisinopril [LISINOPRIL] Allergy (Severe, Verified 11/04/23 13:22) ANGIOEDEMA seafood Allergy (Severe, Verified 11/04/23 13:22) Anaphylaxis duloxetine [From CYMBALTA] Allergy (Intermediate, Verified 11/04/23 13:22) ABDOMINAL PAIN (IN HIGHER THAN 30 MG DOSE) Medication List - Last Reconciled 11/04/23 by Jannette Ahmadi MD albuterol sulfate 2.5 mg (3 mL) inhalation Q4-6H PRN 30 days amlodipine 5 mg PO DAILY 90 days atorvastatin 40 mg PO BEDTIME back brace As directed bisacodyl 10 mg (2 x 5 mg) PO BEDTIME blood sugar diagnostic (FreeStyle Test strips) Use 1 test strip once a day blood-glucose meter (FreeStyle [place] Lite kit) As directed [id number] 50-325-40 mg 1 tab PO Q6H PRN 30 days clonidine HCl 0.1 mg PO BID dapagliflozin propanediol (Farxiga) 5 mg PO DAILY 90 days dexlansoprazole (Dexilant) 60 mg PO DAILY 90 days diclofenac potassium 50 mg PO BID dulaglutide (Trulicity) 0.75 mg (0.5 mL) subcut QWEEK 90 days epinephrine IM estradiol 0.01%(0.1mg/gram) 1 appful vaginal DAILY PRN 30 days fluticasone furoate-vilanterol 200-25 mcg/dose (Breo Ellipta) 1 ea inhalation DAILY fluticasone propionate 50 mcg/actuation 1 spray intranasal DAILY 30 days fremanezumab-vfrm (Ajovy Syringe) 225 mg subcut .monthly hydroxyzine pamoate (Vistaril) 50 mg PO BID PRN ketotifen fumarate 0.025%(0.035%) 1 drp ophthalmic (eye) BID PRN lancets (TRUEplus Lancets) USE 1 LANCET EVERY DAY leg brace (Knee Brace Large-XLarge) As directed linaclotide (Linzess) 290 mcg PO DAILY 90 days metoprolol succinate ER 25 mg PO DAILY 90 days montelukast 10 mg PO DAILY oxycodone-acetaminophen 5-325 mg 1 tab PO TID PRN propranolol 10 mg PO BID sertraline 100 mg PO DAILY simethicone 180 mg PO QID 30 days tirzepatide (Mounjaro) 2.5 mg (0.5 mL) subcut QWEEK 4 weeks [wipes As directed] zolpidem 10 mg PO BEDTIME PRN Do you need a note to return to daycare/school/sports/work: No HPI HPI Comments History of Present Illness Details This is a 57-year-old female with diabetes mellitus type 2 mild major depression that comes for her Medicare wellness exam. A1c within goal. Tried metformin which caused diarrhea and Trulicity did not significantly change anything and had some abdominal discomfort. Will start her on Ozempic. Depression stable with duloxetine and has psychiatry and counseling. Last colonoscopy was 2019 and next colonoscopy should be 2029. Mammogram done 2023 was normal. No need for Pap smear due to hysterectomy last year. [place] of care was done. Ppp handed to patient. [facility] Medical History (Updated 11/04/23 @ 19:35 by Jannette Ahmadi MD) Abnormal TSH Knee pain Lumbar degenerative disc disease Moderate major depression, single episode Hot flashes Anxiety URI (upper respiratory infection) Fibromyalgia Constipation due to opioid therapy Essential hypertension Dyslipidemia Diabetes mellitus Surgical History (Updated 11/04/23 @ 13:27 by Jannette Ahmadi MD) H/O colonoscopy History of total abdominal hysterectomy and bilateral salpingo-oophorectomy History of tubal ligation History of arthroscopy of right knee Family History Father Diabetes Hypertension Mother Diabetes Hypertension Family/Other FH: mental illness Brother No problems noted. Sister No problems noted. Son No problems noted. Daughter No problems noted. Social History Household Members: Family Housing: House Alcohol intake: never Patient Tobacco Use Status: Never used Tobacco e-Cigarette/Vaping Use: Never Used Second Hand Smoke Exposure: No service: No Current occupational status: disabled Cognitive needs: No Hearing needs: No Vision needs: Yes Questionnaire Medicare Wellness Checkup What [age] your [age]?: 65-69 (57) What gender do you identify with?: female During the past 4 weeks, how much have you been bothered by emotional problems such as feeling anxious, depressed, irritable, sad or downhearted, and blue?: quite a bit During the past 4 weeks, has your physical & emotional health limited your social activities with family, friends, neighbors, or groups?: moderately During the past 4 weeks, how much bodily pain have you generally had?: severe pain During the past 4 weeks, was someone available to help you if you needed & wanted help?: yes, some During the past 4 weeks, what was the hardest physical activity you could do for at least 2 minutes?: moderate Can you get to places out of walking distance without help? (For eg., can you travel alone on buses, taxis or drive your car?): Yes Can you go shopping for groceries or clothes without someone's help?: Yes Can you prepare your own meals?: No Can you do your housework without help?: No Because of any health problems, do you need the help of another person with your personal care needs such as eating, bathing, dressing or getting around the house?: Yes Can you handle your own money without help?: Yes During the past 4 weeks, how would you rate your health in general?: fair During the past 4 weeks how have things been going for you?: good & bad parts about equal Are you having difficulties driving your car?: sometimes Do you always fasten your seat belt when you are in a car?: yes, usually During past 4 weeks, have you been bothered by the following: seldom: Problems using the telephone?, sometimes: Falling or dizzy when standing up, Teeth or denture problems? and Tiredness or fatigue?, often: Trouble eating well? and always: Sexual problems? Have you fallen 2 or more times in the past year?: Yes Are you afraid of falling?: Yes Are you a smoker?: no During the past 4 weeks, how many drinks of wine, beer, or other alcoholic beverages did you have?: no alcohol at all Do you exercise for about 20 minutes 3 or more times a week?: no, I usually do not exercise this much Have you been given information to help with the following?: yes: Hazards in your house that might hurt you? and yes: Keeping track of your medications? How often do you have trouble taking medicines the way you have been told to take them?: I do not have to take medicine How confident are you that you can control & manage most of your health problems?: somewhat confident What is your race?: or origin or descent Mini Mental State Exam (MMSE) Orientation What is the (year) (season) (date) (day) (month)?: year, season, date, day and month Where are we (state) (county) (town or city) (hospital) (floor)?: state, county, town or city, hospital/clinic and floor Registration Name of 3 unrelated objects clearly and slowly, then ask patient to repeat all 3 of them. (1st repeat determines score. Make sure they can repeat all three): object 1, object 2 and object 3 Attention & Calculation (CHOOSE ONE) Spell WORLD backwards (DLROW): 5 letters Recall Ask patient to repeat the 3 items from question #3.: object 1, object 2 and object 3 Language Show patient a wristwatch & ask what it is. Repeat for pencil.: watch and pencil Ask the patient to repeat the phrase 'No ifs, ands, or buts' after you.: correct Ask the patient to 'take a piece of paper with their right hand' 'fold paper in half' 'place paper on floor': take paper in right hand, fold paper in half and place paper on floor Print the sentence 'CLOSE YOUR EYES' on a piece. If patient actually closes eyes then score.: followed written direction Give patient a blank piece of paper & ask to write a sentence. Score if it contains a noun & verb.: sentence contains subject and verb Ask patient to copy figure of intersecting pentagons exactly. Score if all 10 angles & 2 intersects are included.: all 10 angles present & 2 are intersected Score Score: 30 Activity of Daily Living Bathing - sponge bath, tub bath or shower: receives help in bathing only one body part (such as back or leg) Dressing - getting clothes from closets & drawers, including inner/outer garments & fasteners.: gets clothes & gets dressed without help, except for help tying shoes Toileting - going to the 'toilet room' for urine/bowel elimination & cleaning self/arranging clothes: goes to toilet room, cleans self, arranges clothes without help Transfer: moves in & out of bed or chair with help Continence: controls urination/bowel movements completely by self Feeding: feeds self without help Total Score: 0 Information obtained from: patient Using telephone: independent Traveling: dependent Shopping: dependent Preparing meals: needs assistance Housework: needs assistance Taking medicine: independent Managing money: independent PHQ-9 Over the last 2 weeks, how often have you been bothered by any of the following problems? 1. Little interest or pleasure in doing things: more than half the days 2. Feeling down, depressed, or hopeless: more than half the days 3. Trouble falling or staying asleep, or sleeping too much: more than half the days 4. Feeling tired or having little energy: more than half the days 5. Poor appetite or overeating: more than half the days 6. Feeling bad about yourself - or that you are a failure or have let yourself or your family down: several days 7. Trouble concentrating on things, such as reading the newspaper or watching television: several days 8. Moving or speaking so slowly that other people could have noticed. Or the opposite - being so fidgety or restless that you have been moving around a lot more than usual: more than half the days 9. Thoughts that you would be better off or of hurting yourself in some way: not at all Total score: 14 Depression Screening Interpretation: Positive (no suicidal thoughts) Depression Screening Follow-up: Existing condition, In treatment, Community Mental Health Worker F/U and Follow-up Visit Requested Depression Screening Done: Yes [id number] - PHQ-9 Billing: Yes Source: Developed by Drs. Kaiser Huber, Jayla Montes, Kodak Lopez and colleagues, with an educational jarrell from [employer]. PHQ-2/PHQ-9 PHQ-2 Over the last 2 weeks, how often have you been bothered by any of the following problems? 1. Little interest or pleasure in doing things: more than half the days 2. Feeling down, depressed, or hopeless: more than half the days Total score: 4 If score is 3 or greater, continue 3. Trouble falling or staying asleep, or sleeping too much: more than half the days 4. Feeling tired or having little energy: more than half the days 5. Poor appetite or overeating: more than half the days 6. Feeling bad about yourself - or that you are a failure or have let yourself or your family down: several days 7. Trouble concentrating on things, such as reading the newspaper or watching television: several days 8. Moving or speaking so slowly that other people could have noticed. Or the opposite - being so fidgety or restless that you have been moving around a lot more than usual: more than half the days 9. Thoughts that you would be better off or of hurting yourself in some way: not at all Total score: 14 0-4 None-Minimal, 5-9 Mild, 10-14 Moderate, 15-19 Moderately Severe, 20-27 Severe Source: Developed by Drs. Kaiser Huber, Jayla Montes, Kodak Lopez and colleagues, with an educational jarrell from [employer]. Thrive Questionnaire Date Thrive assessed: 11/04/23 I am a: Patient What is your living situation today?: I have a steady place to live Within the past 12 months, did the food you bought not last and you didn't have the money to get more?: Never true Within the past 12 months, did you worry whether your food would run out before you got money to buy more?: Never true Do you have trouble paying for medicines?: No Do you have trouble getting transportation to medical appointments?: No Do you have trouble paying your heating and electricity bill?: No Do you have trouble taking care of your child, family member or friend?: No Do you have trouble with day-to-day activities such as bathing, preparing meals, shopping, managing finances, etc.?: No Are you currently unemployed and looking for a job?: No Are you interested in more education?: No Please select the resources that you would like help with: None Currently or been in a relationship where the following occur: No concerns reported THRIVE Score: 0 DEEPTHI-7 AMB Questionnaire DEEPTHI-7 Date DEEPTHI - 7 assessed: 11/04/23 Feeling nervous, anxious, or on edge: 2 = More than half the days Not being able to stop or control worryin = Not at all Worrying too much about different things: 1 = Several days Trouble relaxin = Several days Being so restless that it is hard to sit still: 2 = More than half the days Becoming easily annoyed or irritable: 1 = Several days Feeling afraid as if something awful might happen: 1 = Several days Total DEEPTHI-7 score (0-4 normal; 5-9 mild; 10-14 moderate; 15-21 severe): 8 Source: Developed by Drs. Kaiser Huber, Jayla Montes, Kodak Lopez and colleagues, with an educational jarrell from [employer]. DEEPTHI-7 Assessment Billing DEEPTHI-7 Assessment Tool: DEEPTHI-7 Assessment 11890 Review of Systems Const All systems reviewed & are unremarkable except as noted in HPI and below Card Denies chest pain at rest, Denies chest pain with activity, Denies edema, Denies irregular heart rhythm, Denies claudication, Denies dyspnea, Denies dyspnea on exertion, Denies orthopnea, Denies paroxysmal nocturnal dyspnea and Denies slow heart rate Resp Denies cough, Denies dyspnea and Denies dyspnea on exertion GI Denies abdominal pain, Denies change in bowel habits, Denies excessive flatus, Denies nausea and Denies vomiting Musc Reports back pain, Reports arthralgias and Reports radiating pain into limb Neuro Denies confusion Psych Reports abnormal sleep pattern, Reports anxiety, Denies confusion and Reports depression Physical Exam Vital Signs: Last Vital Signs Pulse 67 11/04/23 12:54 BP 122/80 11/04/23 12:54 Pulse Ox 95 11/04/23 12:54 Oxygen Delivery Method Room Air 11/04/23 12:54 BMI result Body Mass Index 33.4 Const General: No confusion Orientation/consciousness: patient oriented x3 and No confusion Resp Effort & Inspection: normal respiratory effort Auscultation: clear to auscultation bilaterally Cardio Jugular venous distension: no JVD Rate: regular rate Rhythm: regular rhythm Heart sounds: S1 normal heart sound present and S2 normal heart sound present Neuro General: patient oriented x3, no focal motor deficits and No confusion Cognition (Neuro): normal cognition Gait exam (Neuro): Normal gait present Romberg Test: Negative Extrem General: Yes full ROM Results AMB Hemoglobin A1c AMB Hemoglobin A1c 5.6 % Last Edit by KELBY Bejarano on 11/04/23 13 :08 Results Reviewed Results Reviewed: Laboratory Last Values Hgb A1c (Clinic) 5.6 % (4.0-6.0) 11/04/23 12:53 Assessment & Plan Assessment & Plan (1) Encounter for Medicare annual wellness exam: Code(s): Z00.00 - Encounter for general adult medical examination without abnormal findings Plan: Repeat in a year. (2) Moderate major depression, single episode: Code(s): F32.1 - Major depressive disorder, single episode, moderate Plan: Continue duloxetine. Follow-up with psychiatry and counseling. (3) Diabetes mellitus: Code(s): E11.9 - Type 2 diabetes mellitus without complications Qualifiers: Diabetes mellitus type: type 2 Diabetes mellitus longterm insulin use: without long term care social worker use Diabetes mellitus complication status: without complication Qualified Code(s): E11.9 - Type 2 diabetes mellitus without complications Plan: Continue Farxiga. Discontinue Trulicity. Start Ozempic. A1c goal is equal or less than 7%. Orders: Orders AMB Hemoglobin A1c Today Z13.9 - Encounter for screening, unspecified Medications: New semaglutide (Ozempic) for 4 weeks 0.25 mg (0.368 mL) subcut QWEEK 1.472 mL 0RF 4 weeks E11.9 - Type 2 diabetes mellitus without complications Discontinued dulaglutide (Trulicity) Discontinued Reason: Patient Completed Course 0.75 mg (0.5 mL) subcut QWEEK 90 days 6.5 mL 0RF Quality Reporting (2019) Depression/Bipolar (159/160/161/177) PHQ-9: Total score: 14 Coding Level of Care Code Medicare First (G0438) Diagnoses Encounter for Medicare annual wellness exam Z00.00 Moderate major depression, single episode F32.1 Type 2 diabetes mellitus without complication, without long-term current use of insulin E11.9 Diabetes mellitus type: type 2 Diabetes mellitus long term care social worker insulin use: without long term care social worker use Diabetes mellitus complication status: without complication Additional Codes DEEPTHI-7 Assessment Billing - DEEPTHI-7 Assessment Tool: DEEPTHI-7 Assessment [id number] ([id number]) Time Spent (min) 35
[2023-11-04 12:54] VITALS: BP 122/80; PULSE 67; O2SAT 95; BMI 33.4
== END 2023-11-04 13:44 | disposition home or self-care (01) ==
PROVIDERS: PCP Internal Medicine; Visit Provider Internal Medicine
DX: Z00.00 Encounter for general adult medical examination without abnormal findings (principal); F32.1 Major depressive disorder, single episode, moderate; E11.9 Type 2 diabetes mellitus without complications
CPT/HCPCS: 83036; G0438; G0439

== ENCOUNTER 2024-02-04 13:44 | Outpatient (AMB) | payer MEDICARE, MEDICAID, SELFPAY ==
[2024-02-04 14:03] VITALS: BP 130/70; PULSE 63; O2SAT 99; BMI 34.2
--- NOTE | 2024-02-04 14:03 | A.OFFPC_ITS ---
Vital Signs 02/04/24 14:03 Height 5 ft 6 in Weight 212 lb BMI 34.2 BP 130/70 Blood Pressure Location Lt brachial Position Sitting Pulse 63 Pulse Source Pulse Oximeter Pulse Oximetry (%) 99 Oxygen Delivery Method Room Air Intake Visit Reasons: Petra 01/30 Kidney issues Housemaid Required: No Accompanied by: Daughter Allergies ciprofloxacin [From CIPRO] Allergy (Severe, Verified 02/04/24 14:04) UNABLE TP MOVE lisinopril [LISINOPRIL] Allergy (Severe, Verified 02/04/24 14:04) ANGIOEDEMA seafood Allergy (Severe, Verified 02/04/24 14:04) Anaphylaxis duloxetine [From CYMBALTA] Allergy (Intermediate, Verified 02/04/24 14:04) ABDOMINAL PAIN (IN HIGHER THAN 30 MG DOSE) Tobacco use date assessed: 02/04/24 Dental Screening Dental Screen Date: 08/06/23 HPI HPI Comments History of Present Illness Details 58 y/o female patient who [facility] to [facility] for EDF. She was admitted at [facility] on 02/01/24 and discharged home the same day. She was diagnosed with Pylonephritis and currently taking Antibiotics. Daughter reports that the hospital called them today and informed them that patient has Blood infection. Daughter does not know enough information. No available Hospital notes for review. [facility] Medical History (Updated 11/04/23 @ 19:35 by Jannette Ahmadi MD) Abnormal TSH Knee pain Lumbar degenerative disc disease Moderate major depression, single episode Hot flashes Anxiety URI (upper respiratory infection) Fibromyalgia Constipation due to opioid therapy Essential hypertension Dyslipidemia Diabetes mellitus Surgical History H/O colonoscopy History of total abdominal hysterectomy and bilateral salpingo-oophorectomy History of tubal ligation History of arthroscopy of right knee Family History Father Diabetes Hypertension Mother Diabetes Hypertension Family/Other FH: mental illness Brother No problems noted. Sister No problems noted. Son No problems noted. Daughter No problems noted. Social History Household Members: Family Housing: House Alcohol intake: never Patient Tobacco Use Status: Never used Tobacco e-Cigarette/Vaping Use: Never Used Second Hand Smoke Exposure: No service: No Current occupational status: disabled Cognitive needs: No Hearing needs: No Vision needs: Yes Questionnaire Thrive Questionnaire Date Thrive assessed: 11/04/23 DEEPTHI-7 AMB Questionnaire DEEPTHI-7 Date DEEPTHI - 7 assessed: 11/04/23 Source: Developed by Drs. Kaiser Huber, Jayla Montes, Kodak Lopez and colleagues, with an educational jarrell from [employer]. Review of Systems Const All systems reviewed & are unremarkable except as noted in HPI and below Physical exam (Primary Care) Vital Signs: Last Vital Signs Pulse 63 02/04/24 14:03 BP 130/70 02/04/24 14:03 Pulse Ox 99 02/04/24 14:03 Oxygen Delivery Method Room Air 02/04/24 14:03 BMI result Body Mass Index 34.2 Tobacco/Smoking Status: Tobacco use Status Tobacco use date assessed 02/04/24 02/04/24 14:05 Patient Tobacco Use Status Never used Tobacco 02/04/24 14:04 e-Cigarette/Vaping Use Never Used 02/04/24 14:04 Thrive Assessment: Date of Thrive Assessment Date Thrive assessed 11/04/23 02/04/24 14:04 Const General: cooperative and no acute distress Nutritional Appearance: overweight Orientation/consciousness: patient oriented x3 Resp Effort & Inspection: normal respiratory effort Auscultation: clear to auscultation bilaterally Cardio Heart sounds: S1 normal heart sound present and S2 normal heart sound present Neuro General: patient oriented x3 Coding Level of Care Code Est Pt Level 4 (15022) Diagnoses Pyelonephritis N12 Time Spent (min) 20 Assessment & Plan Assessment & Plan (1) Pyelonephritis: Code(s): N12 - Tubulo-interstitial nephritis, not specified as acute or chronic Plan: Continue on Antibiotics as prescribed.
== END 2024-02-04 14:15 | disposition home or self-care (01) ==
PROVIDERS: PCP Internal Medicine; Visit Provider Nurse Practitioner Family
DX: N12 Tubulo-interstitial nephritis, not specified as acute or chronic (principal)

== ENCOUNTER → 2024-02-04 13:44 | Outpatient (BNVA) | payer MEDICARE, MEDICAID, SELFPAY | PROVIDERS: PCP Internal Medicine; Visit Provider Nurse Practitioner Family | DX: N12 Tubulo-interstitial nephritis, not specified as acute or chronic (principal) | CPT/HCPCS: 99212 ==

== ENCOUNTER 2024-03-11 12:18 | Outpatient (AMB) | payer MEDICARE, MEDICAID, SELFPAY ==
--- NOTE | 2024-03-11 12:35 | A.OFFPC_ITS ---
Vital Signs 03/11/24 12:38 Height 5 ft 6 in Weight 216 lb 8 oz BMI 34.9 BP 122/74 Blood Pressure Location Lt brachial Position Sitting Pulse 61 Pulse Source Pulse Oximeter Pulse Oximetry (%) 96 Oxygen Delivery Method Room Air Intake Visit Reasons: 4 mo follow up DM Intake Note: Patient is here to follow up on DM. Ecclesiastical Worker Required: Yes Ecclesiastical Worker Language: Turkmen Information Interpreted: non-clinical & clinical Biosecurity Officer: Not Required per policy Accompanied by: Self / Same As Patient Allergies ciprofloxacin [From CIPRO] Allergy (Severe, Verified 03/11/24 12:54) UNABLE TP MOVE lisinopril [LISINOPRIL] Allergy (Severe, Verified 03/11/24 12:54) ANGIOEDEMA seafood Allergy (Severe, Verified 03/11/24 12:54) Anaphylaxis duloxetine [From CYMBALTA] Allergy (Intermediate, Verified 03/11/24 12:54) ABDOMINAL PAIN (IN HIGHER THAN 30 MG DOSE) Medication List - Last Reconciled 03/11/24 by Jannette Ahmadi MD albuterol sulfate 2.5 mg (3 mL) inhalation Q4-6H PRN 30 days amlodipine 5 mg PO DAILY 90 days atorvastatin 40 mg PO BEDTIME back brace As directed bisacodyl 10 mg (2 x 5 mg) PO BEDTIME blood sugar diagnostic (FreeStyle Test strips) Use 1 test strip once a day blood-glucose meter (FreeStyle [place] Lite kit) As directed imghtyezzr-iobbqpnifqcvl-crpl 50-325-40 mg 1 tab PO Q6H PRN 30 days cane As directed clonidine HCl 0.1 mg PO BID dapagliflozin propanediol (Farxiga) 5 mg PO DAILY 90 days dexlansoprazole (Dexilant) 60 mg PO DAILY 90 days diclofenac potassium 50 mg PO BID epinephrine IM estradiol 0.01%(0.1mg/gram) 1 appful vaginal DAILY PRN 30 days exenatide microspheres ER (Bydureon BCise) 2 mg (0.85 mL) subcut Q7D 4 weeks fluticasone furoate-vilanterol 200-25 mcg/dose (Breo Ellipta) 1 ea inhalation DAILY fluticasone propionate 50 mcg/actuation 1 spray intranasal DAILY 30 days fremanezumab-vfrm (Ajovy Syringe) 225 mg subcut .monthly hydroxyzine pamoate (Vistaril) 50 mg PO BID PRN ketotifen fumarate 0.025%(0.035%) 1 drp ophthalmic (eye) BID PRN lancets (TRUEplus Lancets) USE 1 LANCET EVERY DAY leg brace (Knee Brace Large-XLarge) As directed linaclotide (Linzess) 290 mcg PO DAILY 90 days metoprolol succinate ER 25 mg PO DAILY 90 days montelukast 10 mg PO DAILY Motegrity (prucalopride) 2 mg PO DAILY NS oxycodone-acetaminophen 5-325 mg 1 tab PO TID PRN propranolol 10 mg PO BID semaglutide (Ozempic) 0.25 mg (0.368 mL) subcut QWEEK 4 weeks sertraline 100 mg PO DAILY simethicone 180 mg PO QID 30 days sulfamethoxazole-trimethoprim 800-160 mg (Bactrim DS) 1 tab PO BID 7 days tirzepatide (Mounjaro) 2.5 mg (0.5 mL) subcut QWEEK 4 weeks Ventolin HFA 90 mcg/actuation (albuterol sulfate) 2 puffs inhalation Q6H PRN 30 days NS [wipes As directed] zolpidem 10 mg PO BEDTIME PRN Tobacco use date assessed: 03/11/24 Dental Screening Dental Screen Date: 03/11/24 Did you have a dental visit in the last 12 months?: Yes Did you have a dental problem in the last 6 months where you did not have access to dental care?: No Was dental information given to patient?: Patient has dentist HPI HPI Comments History of Present Illness Details The patient is a 58-year-old female presenting for follow up on her chronic conditions. There is mention of multiple undefined conditions and potential allergies to medications like ciprofloxacin and lisinopril. However, concrete details about any current, past diagnoses, or medications were not shared in the conversation apart from these potential allergies. No specific chronic or acute symptoms were articulated by the patient during this encounter. She has diabetes mellitus type 2 with an A1c within goal. Hypertension stable and lipid panel will be order because her LDL goal should be less than 70. [facility] Medical History Abnormal TSH Knee pain Lumbar degenerative disc disease Moderate major depression, single episode Hot flashes Anxiety URI (upper respiratory infection) Fibromyalgia Constipation due to opioid therapy Essential hypertension Dyslipidemia Diabetes mellitus Surgical History H/O colonoscopy History of total abdominal hysterectomy and bilateral salpingo-oophorectomy History of tubal ligation History of arthroscopy of right knee Family History Father Diabetes Hypertension Mother Diabetes Hypertension Family/Other FH: mental illness Brother No problems noted. Sister No problems noted. Son No problems noted. Daughter No problems noted. Social History Household Members: Family Housing: House Alcohol intake: never Patient Tobacco Use Status: Never used Tobacco e-Cigarette/Vaping Use: Never Used Second Hand Smoke Exposure: No service: No Current occupational status: disabled Cognitive needs: No Hearing needs: No Vision needs: Yes Questionnaire PHQ-9 Over the last 2 weeks, how often have you been bothered by any of the following problems? 1. Little interest or pleasure in doing things: not at all 2. Feeling down, depressed, or hopeless: several days 3. Trouble falling or staying asleep, or sleeping too much: several days 4. Feeling tired or having little energy: more than half the days 5. Poor appetite or overeating: more than half the days 6. Feeling bad about yourself - or that you are a failure or have let yourself or your family down: not at all 7. Trouble concentrating on things, such as reading the newspaper or watching television: several days 8. Moving or speaking so slowly that other people could have noticed. Or the opposite - being so fidgety or restless that you have been moving around a lot more than usual: more than half the days 9. Thoughts that you would be better off or of hurting yourself in some way: not at all Total score: 9 Depression Screening Interpretation: Positive Depression Screening Follow-up: Existing condition, In treatment, Community Mental Health Worker F/U and Follow- up Visit Requested Depression Screening Done: Yes 17184 - PHQ-9 Billing: Yes Source: Developed by Drs. Kaiser Huber, Kodak Robledo and colleagues, with an educational jarrell from [employer]. Thrive Questionnaire Date Thrive assessed: 03/11/24 I am a: Patient What is your living situation today?: I have a steady place to live Within the past 12 months, did the food you bought not last and you didn't have the money to get more?: Never true Within the past 12 months, did you worry whether your food would run out before you got money to buy more?: Never true Do you have trouble paying for medicines?: No Do you have trouble getting transportation to medical appointments?: No Do you have trouble paying your heating and electricity bill?: No Do you have trouble taking care of your child, family member or friend?: No Do you have trouble with day-to-day activities such as bathing, preparing meals, shopping, managing finances, etc.?: No Are you currently unemployed and looking for a job?: No Are you interested in more education?: No Please select the resources that you would like help with: None Currently or been in a relationship where the following occur: No concerns reported THRIVE Score: 0 AUDIT C Alcohol Use Questionnaire (AUDIT-C) 1. How often do you have a drink containing alcohol?: Never Total Score: 0 DEEPTHI-7 AMB Questionnaire DEEPTHI-7 Date DEEPTHI - 7 assessed: 03/11/24 Feeling nervous, anxious, or on edge: 1 = Several days Not being able to stop or control worryin = Not at all Worrying too much about different things: 0 = Not at all Trouble relaxin = Not at all Being so restless that it is hard to sit still: 1 = Several days Becoming easily annoyed or irritable: 0 = Not at all Feeling afraid as if something awful might happen: 0 = Not at all Total DEEPTHI-7 score (0-4 normal; 5-9 mild; 10-14 moderate; 15-21 severe): 2 Source: Developed by Drs. Kaiser Huber, Kodak Robledo and colleagues, with an educational jarrell from [employer]. DEEPTHI-7 Assessment Billing DEEPTHI-7 Assessment Tool: DEEPTHI-7 Assessment 14006 Review of Systems Const All systems reviewed & are unremarkable except as noted in HPI and below Card Denies chest pain at rest, Denies chest pain with activity, Denies edema, Denies irregular heart rhythm, Denies claudication, Denies dyspnea, Denies dyspnea on exertion, Denies orthopnea, Denies paroxysmal nocturnal dyspnea and Denies slow heart rate Resp Denies cough, Denies dyspnea and Denies dyspnea on exertion GI Denies abdominal pain, Denies change in bowel habits, Denies excessive flatus, Denies nausea and Denies vomiting Neuro Denies lack of coordination Physical exam (Primary Care) Vital Signs: Last Vital Signs Pulse 61 03/11/24 12:38 BP 122/74 03/11/24 12:38 Pulse Ox 96 03/11/24 12:38 Oxygen Delivery Method Room Air 03/11/24 12:38 BMI result Body Mass Index 34.9 BMI Assessment/Plan discussion: High BMI High, discussed plan: lifestyle, weight reduction, dietary and physical activity Tobacco/Smoking Status: Tobacco use Status Tobacco use date assessed 03/11/24 03/11/24 12:46 Patient Tobacco Use Status Never used Tobacco 03/11/24 12:46 e-Cigarette/Vaping Use Never Used 03/11/24 12:46 PHQ-9: PHQ-9 Score PHQ-9: Total score 9 03/11/24 12:57 Depression Screening Interpretation: Positive Depression Screening Follow-up: Existing condition, In treatment, Community Mental Health Worker F/U and Follow- up Visit Requested Thrive Assessment: Date of Thrive Assessment Date Thrive assessed 03/11/24 03/11/24 12:46 Currently or been in a relationship where the following occur: No concerns reported Resp Effort & Inspection: normal respiratory effort Auscultation: clear to auscultation bilaterally Cardio Jugular venous distension: no JVD Rate: regular rate Rhythm: regular rhythm Heart sounds: S1 normal heart sound present and S2 normal heart sound present Extrem General: Yes full ROM Results AMB Hemoglobin A1c AMB Hemoglobin A1c 5.8 % Last Edit by KELBY Caceres on 03/11/24 12:49 Results Reviewed Results Reviewed: Laboratory Last Values Hgb A1c (Clinic) 5.8 % (4.0-6.0) 03/11/24 12:34 Coding Level of Care Code Est Pt Level 4 (37050) Complex EM visit Add On G2211 Diagnoses Moderate major depression, single episode F32.1 Type 2 diabetes mellitus without complication, without long-term current use of insulin E11.9 Diabetes mellitus type: type 2 Diabetes mellitus rodent exterminator insulin use: without rodent exterminator use Diabetes mellitus complication status: without complication Dyslipidemia E78.5 Essential hypertension I10 Additional Codes DEEPTHI-7 Assessment Billing - DEEPTHI-7 Assessment Tool: DEEPTHI-7 Assessment 05030 ([id number]) PHQ-9 - 93278 - PHQ-9 Billing: Yes ([id number]) Time Spent (min) 21 Assessment & Plan Assessment & Plan (1) Moderate major depression, single episode: Code(s): F32.1 - Major depressive disorder, single episode, moderate Category: Medical (2) Diabetes mellitus: Code(s): E11.9 - Type 2 diabetes mellitus without complications Category: Medical Qualifiers: Diabetes mellitus type: type 2 Diabetes mellitus custodial insulin use: without custodial use Diabetes mellitus complication status: without complication Qualified Code(s): E11.9 - Type 2 diabetes mellitus without complications (3) Dyslipidemia: Code(s): E78.5 - Hyperlipidemia, unspecified Category: Medical (4) Essential hypertension: Code(s): I10 - Essential (primary) hypertension Category: Medical Plan Continue duloxetine for depression. Continue amlodipine for hypertension. Continue Farxiga for diabetes mellitus. Continue statins for hyperlipidemia. Repeat lipid panel and her LDL goal should be less than 70. Blood pressure goal is equal or less than 130/80. Orders: Orders Lipid Panel Today E78.5 - Hyperlipidemia, unspecified Vitamin D 25-OH Total Today E55.9 - Vitamin D deficiency, unspecified Vitamin B12 and Folate Today E53.8 - Deficiency of other specified B group vitamins Complete Blood Count Auto Diff Today D64.9 - Anemia, unspecified Comprehensive [place]. Panel Fast Today E11.9 - Type 2 diabetes mellitus without complications AMB Hemoglobin A1c Today E11.9 - Type 2 diabetes mellitus without complications Microalbumin, Random (w Creat) Today R80.9 - Proteinuria, unspecified UA CC w/rflx Micro + Cult Today R30.0 - Dysuria IRON PROFILE Today D64.9 - Anemia, unspecified
[2024-03-11 12:38] VITALS: BP 122/74; PULSE 61; O2SAT 96; BMI 34.9
== END 2024-03-11 13:03 | disposition home or self-care (01) ==
PROVIDERS: PCP Internal Medicine; Visit Provider Internal Medicine
DX: F32.1 Major depressive disorder, single episode, moderate (principal); E11.9 Type 2 diabetes mellitus without complications; E78.5 Hyperlipidemia, unspecified; I10 Essential (primary) hypertension

== ENCOUNTER 2024-03-12 10:01 | Outpatient (REF) | payer MEDICARE, MEDICAID, SELFPAY ==
[2024-03-12 10:28] LABS: MANUAL DIFF FLAG NO
[2024-03-12 10:37] LABS: Basophils Percent Auto 0.5 % (0-2); Eosinophils Absolute Auto 0.1 X10*3/uL (0.0-0.4); Eosinophils Percent Auto 1.6 % (0-4); Hematocrit 39.3 % (37.0-47.0); Hemoglobin 12.7 g/dl (12.0-16.0); Imm Gran Abs Auto 0.03 X10*3/uL (0.00-0.03); Imm Gran Pct Auto 0.4 % (0.0-0.4); Lymphocytes Absolute Auto 2.5 X10*3/uL (1.2-4.9); Lymphocytes Percent Auto 33.5 % (20-40); Mean Corpuscular HGB Conc 32.3 g/dl (31.0-35.0); Mean Corpuscular Hemoglobin 28.2 pg (27.0-33.0); Mean Corpuscular Volume 87.1 fL (80.0-98.0); Mean Platelet Volume 9.6 fL (9.4-12.3); Monocytes Absolute Auto 0.5 X10*3/uL (0.1-1.2); Monocytes Percent Auto 6.4 % (2-11); Neutrophils Absolute Auto 4.3 x10*3/uL (2.0-8.3); Neutrophils Percent Auto 57.6 % (45-73); Platelet Count 354 X10*3/uL (160-400); Red Blood Count 4.51 X10*6/uL (4.20-5.50); Red Cell Distribution Width 13.6 % (11.0-16.0); White Blood Count 7.5 X10*3/uL (4.8-10.8)
[2024-03-12 10:46] LABS: Appearance Urine Clear; Color Urine Yellow; Glucose Urine UA >=1000 mg/dL (Negative); Leukocyte Esterase Urine Negative (Negative); Nitrite Urine Negative (Negative); Specific Gravity - Urine 1.015 (1.005-1.025); UMIC TRIGGER UACC YES; Urine Blood Negative (Negative); Urine Ketones Negative (Negative); Urine Protein Negative (Neg-Trace)
[2024-03-12 10:52] LABS: Bacteria Urine Trace (None Seen); Hyaline Casts Urine 0-2 /LPF (0-2); RBC Urine 0-2 /HPF (0-2); WBC Urine 0-5 /HPF (0-5)
[2024-03-12 11:28] LABS: Creatinine Urine 84.32 mg/dL; Microalbumin Urine < 5.0 mg/L
[2024-03-12 11:33] LABS: Alanine Aminotransferase 9 U/L (0-31); Albumin Level 4.1 g/dL (3.5-5.0); Alkaline Phosphatase 101 U/L (39-117); Anion Gap 8 (12-20); Aspartate Amino Transferase 20 U/L (5-31); Bilirubin Total 0.3 mg/dL (0.0-1.0); Blood Urea Nitrogen 10 mg/dL (9-16); Calcium 9.1 mg/dL (8.4-10.2); Carbon Dioxide 27 mmol/L (22-29); Chloride 109 mmol/L (96-108); Cholesterol 228 mg/dL (<200); Estimated Glomerular Filt Rate > 60; Glucose Fasting 106 mg/dL (60-99); HDL Cholesterol 51 mg/dL (>40); Iron 86 mcg/dL (30-160); LDL Cholesterol Calculated 154 mg/dL (<100); Percent Iron Saturation 31 % (15-50); Potassium 3.9 mmol/L (3.3-5.1); Sodium 140 mmol/L (135-145); Total Iron Binding Capacity 274 mcg/dL (228-428); Total Protein 7.6 g/dL (6.5-8.0); Triglycerides 116 mg/dL (<150); Unsaturated Iron Binding 188 ug/dL; Vitamin D 25-OH Total 16.2 ng/mL (>30)
[2024-03-12 11:55] LABS: Folate 14.4 ng/mL (> or = 4.0); Vitamin B12 501 pg/mL (200-900)
== END 2024-03-12 10:02 | disposition home or self-care (01) ==
LOC: HO.LAB 10:01
PROVIDERS: PCP Internal Medicine; Visit Provider Internal Medicine
DX: E11.9 Type 2 diabetes mellitus without complications (principal); E55.9 Vitamin D deficiency, unspecified; E78.5 Hyperlipidemia, unspecified; E53.8 Deficiency of other specified B group vitamins; D64.9 Anemia, unspecified
CPT/HCPCS: 36415; 80053; 80061; 81001; 82043; 82306; 82570; 82607; 82746; 83540; 85025

== ENCOUNTER 2024-06-18 14:07 | Outpatient (AMB) | payer MEDICARE, MEDICAID, SELFPAY ==
--- OUTSIDE RECORDS SUMMARY | 2024-06-18 14:29 | XMS_ITS | Continuity of Care Document ---
Author Organization [facility] ter Address [address] [place] [id number] Care Team Providers Care Education Professional Name Role Phone Suresh Ahmadi MD, Jannette Fernando Primary Care Physician Encounter [facility] NBR [id number] Date(s): 08/20/22 - 06/17/24 [facility] [address] [place] [id number] Encounter Diagnosis Idiopathic urticaria(Final) - Moderate persistent asthma, uncomplicated(Final) - Other allergic rhinitis(Final) - Other moth exterminator (current) drug therapy(Final) - Discharge Disposition: A-D/C Home Attending Physician: Rigoberto Salazar DO Admitting Physician: Rigoberto Salazar DO Referring Physician: Jannette Solis MD Encounter Type: Disch Recurring OP Allergies, Adverse Reactions, Alerts Substance Criticality Severity Reaction Reaction Severity Status lisinopril swelling rash Active Cipro Active Seafood swelling rash Active Medications Albuterol Neb, PRN Wheezing/Shortness of Breath, 0 Refills, Maintenance, 11/18/13 9:47:15 AM EDT Start Date: 11/18/13 Status: Ordered Repeat number: 1 Amlodipine = 10 mg, By Mouth, Daily in AM, 0 Refills, Maintenance, 01/26/18 11:39:52 AM EST Start Date: 01/26/18 Status: Ordered Repeat number: 1 cetirizine 10 mg oral tablet, dispersible 1 tablet = 10 mg, By Mouth, Daily in AM, 0 Refills, Maintenance, 11/18/13 9:52:48 AM EDT Start Date: 11/18/13 Status: Ordered Repeat number: 1 Colace sodium 100 mg oral capsule 1 capsule = 100 mg, By Mouth, 2 times a day, PRN as needed for constipation, 0 Refills, Maintenance, 11/18/13 9:51:34 AM EDT Start Date: 11/18/13 Status: Ordered Repeat number: 1 Dexilant 30 mg oral delayed release capsule 1 capsule, By Mouth, Daily in AM, # 30 capsule, 0 Refills, Maintenance, 11/18/13 9:51:51 AM EDT, EC Capsule Start Date: 11/18/13 Status: Ordered Quantity: 30.0 Unit: capsule Repeat number: 1 dicyclomine 20 mg oral tablet 1 tablet = 20 mg, By Mouth, 4 times a day, PRN Irritable Bowel Symptoms, 0 Refills, Maintenance, 11/18/13 9:52:11 AM EDT Start Date: 11/18/13 Status: Ordered Repeat number: 1 Fioricet oral capsule 1 capsule, By Mouth, Every 4 hours, PRN Headache, 0 Refills, Maintenance, 11/18/13 9:54:43 AM EDT Start Date: 11/18/13 Status: Ordered Repeat number: 1 Fluticasone Nasal Daily, PRN Congestion, 0 Refills, Maintenance, 11/18/13 9:48:26 AM EDT Start Date: 11/18/13 Status: Ordered Repeat number: 1 Linzess 290 mcg oral capsule 1 capsule = 290 mcg, By Mouth, Daily in AM, # 30 capsule, 0 Refills, Maintenance, 04/08/20 11:28:00 AM EST, Capsule, Partial fill upon patient request if the prescription is for a schedule II opioid drug. Start Date: 04/08/20 Status: Ordered Quantity: 30.0 Unit: capsule Repeat number: 1 metFORMIN 500 mg oral tablet 1 tablet = 500 mg, By Mouth, Daily, # 60 tablet, 0 Refills, Maintenance, 04/08/20 11:25:00 AM EST, Tablet, Partial fill upon patient request if the prescription is for a schedule II opioid drug. Start Date: 04/08/20 Status: Ordered Quantity: 60.0 Unit: tablet Repeat number: 1 metoprolol succinate 25 mg oral capsule, extended release 1 capsule = 25 mg, By Mouth, Daily in AM, # 30 capsule, 0 Refills, Maintenance, 04/08/20 11:26:00 AMEST, ER Capsule, Partial fill upon patient request if the prescription is for a schedule II opioid drug. Start Date: 04/08/20 Status: Ordered Quantity: 30.0 Unit: capsule Repeat number: 1 Misc Durable Medical Equipment Refills 0, Maintenance, 11/18/13 9:56:57 AM EDT, Compound Start Date: 11/18/13 Status: Ordered Repeat number: 1 montelukast 10 mg oral tablet 10 mg, 1, tablet, By Mouth, Daily in AM, Refills 0, Maintenance, 04/08/20 11:30:00 AM EST, Partial fill upon patient request if the prescription is for a schedule II opioid drug. Start Date: 04/08/20 Status: Ordered Repeat number: 1 Nebulizer/Compressor See Instructions, Maintenance, 11/18/13 9:56:31 AM EDT, Compound Start Date: 11/18/13 Status: Ordered Repeat number: 1 oxycodone 5 mg oral tablet 1 tablet = 5 mg, By Mouth, Every 6 hours, 0 Refills, Maintenance, 11/18/13 9:55:14 AM EDT Start Date: 11/18/13 Status: Ordered Repeat number: 1 pravastatin 20 mg oral tablet 1 tablet = 20 mg, By Mouth, Daily at bedtime, 0 Refills, Maintenance, 11/18/13 9:52:31 AM EDT Start Date: 11/18/13 Status: Ordered Repeat number: 1 ProAir HFA 2 puffs, Inhalation, 4 times a day, 0 Refills, Maintenance, 11/18/13 9:46:55 AM EDT Start Date: 11/18/13 Status: Ordered Repeat number: 1 zolpidem 10 mg oral tablet 1 tablet = 10 mg, By Mouth, Daily at bedtime, PRN as needed for insomnia, 0 Refills, Maintenance, 11/18/13 9:53:37 AM EDT Start Date: 11/18/13 Status: Ordered Repeat number: 1 Problem List Condition Confirmation Course Effective Dates Status Health St atus Informant Asthma Confirmed Active Chronic back pain Confirmed Active Diabetes Confirmed Active GERD (gastroesophageal reflux disease) Confirmed Active Hypertension Confirmed Active Degenerative joint disease- right knee Confirmed Active Vital Signs Most recent to oldest [Reference Range]: 1 2 3 Oxygen Saturation [94-100 %] 100 % (05/08/24 3:07 PM) 100 % (03/13/24 3:07 PM) 99 % (02/13/24 3:30 PM) Pulse Rate [55-90 bpm] 63 bpm (05/08/24 3:07 PM) 62 bpm (03/13/24 3:07 PM) 80 bpm (02/13/24 3:30 PM) Blood Pressure [90-138/55-84 mm Hg] 131/80mm Hg (05/08/24 3:07 PM) 98/64mm Hg (03/13/24 3:07 PM) 118/74mm Hg (02/13/24 3:30 PM) Respiratory Rate [16-30 br/min] 18 br/min (05/08/24 3:07 PM) 20 br/min (03/13/24 3:07 PM) 18 br/min (02/13/24 3:30 PM) Temperature [96.8-100.4 DegF] 97.6 DegF (05/08/24 3:07 PM) 96.9 DegF (03/13/24 3:07 PM) 97.2 DegF (02/13/24 3:30 PM) Mode of Delivery (Oxygen) Room air (05/08/24 3:07 PM) Room air (03/13/24 3:07 PM) Room air (02/13/24 3:30 PM) Blood pressure sites Arm, right (05/08/24 3:07 PM) Arm, left (03/13/24 3:07 PM) Arm, left (12/19/23 4:16 PM) Temperature Route Temporal (05/08/24 3:07 PM) Temporal (03/13/24 3:07 PM) Temporal (02/13/24 3:30 PM) Dry Weight 95.2 kg (05/08/24 3:07 PM) 97.8 kg (03/13/24 3:07 PM) 97.2 kg (02/13/24 3:30 PM) Dry Weight Obtained Via Standing scale (05/08/24 3:07 PM) Standing scale (02/13/24 3:30 PM) Standing scale (01/16/24 10:06 AM) Note * Event Display: Infusion History and Physical Authored Date: * Event Display: Infusion History and Physical Authored Date: * Event Display: Infusion History and Physical Authored Date: Hospital Progress note * Maya Pina RN: PERFORM, SIGN, VERIFY Event Display: Progress Note Hospital Authored Date: [id number] Patient: RUSS IRVIN Age: 58 years Sex: Female : 1965 Associated Diagnoses: None Author: Maya Pina RN Findings Evaluation Patient admitted for xolair. Denies any active illness, infection, fever or antibiotic use. 2 injections right upper arm sc. No signs or symptoms of reaction observed or reported. VSS. Ambulatory offunit. . * Kristi Pfeiffer RN: PERFORM, SIGN, VERIFY Event Display: Progress Note Hospital Authored Date: [id number] Patient: RUSS IRVIN Age: 58 years Sex: Female : 1965 Associated Diagnoses: None Author: Kristi Pfeiffer RN Findings Nursing Data Vital Signs : VITAL SIGNS SECTION 03/13/2024 15:07 EST Temperature 96.9 DegF Temperature Route Temporal Pulse Rate 62 bpm Respiratory Rate 20 br/min Systolic Blood Pressure 98 mm Hg Diastolic Blood Pressure 64 mm Hg Blood pressure sites Arm, left Mean Arterial Pressure 75 mm Hg Pulse Pressure 34 mm Hg Oxygen Saturation 100 % Mode of Delivery (Oxygen) Room air . Narrative/Incidental Pt admitted for xolair injection. Injection site wiped with gauze after injection. Pt tolerated injection well. Pt ambulatory off unit at the time of discharge.. * Maria E Cazares RN: PERFORM, SIGN, VERIFY Event Display: Progress Note Hospital Authored Date: [id number] Patient: RUSS IRVIN Age: 58 years Sex: Female : 1965 Associated Diagnoses: None Author: Maria E Cazares RN Findings Nursing Data Vital Signs : VITAL SIGNS SECTION 02/13/2024 15:30 EST Temperature 97.2 DegF Temperature Route Temporal Pulse Rate 80 bpm Respiratory Rate 18 br/min Systolic Blood Pressure 118 mm Hg Diastolic Blood Pressure 74 mm Hg Mean Arterial Pressure 89 mm Hg Pulse Pressure 44 mm Hg Oxygen Saturation 99 % Mode of Delivery (Oxygen) Room air . Narrative/Incidental Patient admitted for Xolair. VSS. Injection well tolerated. Sites cleaned and wiped. No adverse reaction observed or reported. Patient ambulated off of the unit.. Patient Care team information Care Team Personnel Name: Julia Irvin RN Position: [facility] RN Member Role: Primary Care Nurse Name: Carmen Holguin RN Position: [facility] RN Member Role: Primary Care Nurse Name: Isis Vásquez RN Position: [facility] AMB Nurse Member Role: Primary Care Nurse Name: Suresh Ahmadi MD , Jannette Fernando Position: Reference Physician Member Role: PCP Address: [address] [place] [address] [address] [place], [place] [address] Telecom: Care Team Related Persons Name: IBIS JULES Name: LILLY JULES Insurance Providers Guarantor name: RUSS IRVIN Health Plan Information #: 2 Payer: [facility] Member Number: [id number] Policy Number: NA Group Number: NA Health Plan Information #: 1 Payer: MEDICARE PART B OUTPT Member Number: [id number] Policy Number: NA Group Number: NA
--- OUTSIDE RECORDS SUMMARY | 2024-06-18 14:29 | XMS_ITS | Clinical Summary ---
Author Organization [facility] Address [address] [place] [address] Care Team Providers Care Department Secretary Name Role Phone Unavailable Primary Care Provider Unavailabl e Source Comments PLEASE NOTE, if this patient is a minor, it may be UNLAWFUL to discuss sensitive information that is contained in these records (such as FAMILY PLANNING, MENTAL HEALTH or SUBSTANCE ABUSE) with the minor patient's parent or other person without the patient's specific authorization.[facility] Immunizations Immunization Administration Dates Next Due PFIZER COVID VACCINE, PURPLE CAP, 12+ 03/30/2021 Social History Tobacco Use Types Packs/Day Years Used Date Smoking Tobacco: Never Assessed Comments Unknown Sex and Gender Information Value Date Recorded Sex Assigned at Not on file Legal Sex Female 12:58 PM PST Gender Identity Not on file Sexual Orientation Not on file Plan of Treatment Health Maintenance Due Date Last Done Comments Anxiety Screening 1965 Diabetes Screening 1965 HPV Screening 1965 Hepatitis C Screening 1965 Lipid Screening 1965 Pap + HPV 1965 Tobacco Screening 1965 HIV Screening 11/09/1982 Hypertension Screening (#1) 11/09/1985 Medicare Annual Wellness Visit 11/09/1985 Imm-DTaP/Tdap/Td (1 - Tdap) 11/09/1986 Imm-Hepatitis B (1 of 3 - 19 + 3-dose series) 11/09/1986 Cervical Cancer Screening 11/09/1988 Pap Smear 11/09/1988 Breast Cancer Screening (Mammogram) 2007 CT Colonography 11/09/2012 Colonoscopy 11/09/2012 Colorectal Cancer Screening 11/09/2012 FIT/gFOBT 11/09/2012 Fecal DNA 11/09/2012 Flexible Sigmoidoscopy 11/09/2012 Imm-Zoster, Recombinant (1 of 2) 11/09/2017 [id number] ( season) 2023 022, 07/10/2020 Imm-Influenza (#1) 2023 01/08/2018 Alcohol and Drug Screen 03/10/2024 Depression Annual Screen 03/10/2024 Cervical Ablation/Cold-Knife Conization Discontinued Cervical Cryotherapy Discontinued Colposcopy Discontinued Endometrial Biopsy Discontinued Excision/Leep Discontinued HPV Genotyping Discontinued Vaginal Pap Discontinued Vulvoscopy Discontinued Insurance [place]
--- OUTSIDE RECORDS SUMMARY | 2024-06-18 14:29 | XMS_ITS | Clinical Summary ---
Author Organization [facility] Address [address] [place] [address] Phone Care Team Providers Care Db2 Systems Programmer Name Role Phone Jannette Ahmadi MD Primary Care Provider [phone] Allergies Active Allergy Reactions Criticality Noted Date Comments Ciprofloxacin 02/01/2024 Lisinopril 02/01/2024 Medical History Medical History Date Comments Diabetes mellitus ([facility] V24, [facility] V28) Asthma Hypertension Migraine Social History Tobacco Use Types Packs/Day Years Used Date Smoking Tobacco: Never Smokeless Tobacco: Never Tobacco Cessation:Counseling Given: Not Answered Alcohol Use Standard Drinks/Week Comments Never 0 (1 standard drink = 0.6 oz pur e alcohol) Comments Unknown Sex and Gender Information Value Date Recorded Sex Assigned at Not on file Legal Sex Female 1:03 PM EST Gender Identity Not on file Sexual Orientation Not on file Obstetrics History Last Filed Vital Signs Vital Sign Reading Time Taken Comments Blood Pressure 124/62 02/01/2024 4:08 PM EST Pulse 81 02/01/2024 4:08 PM EST Temperature 36.9 ??C (98.4 ??F) 02/01/2024 4:08 PM ES T Respiratory Rate 18 02/01/2024 4:08 PM EST Oxygen Saturation 96% 02/01/2024 4:08 PM EST Inhaled Oxygen Concentration - - Weight 95.3 kg (210 lb) 02/01/2024 1:15 PM EST Height 167.6 cm (5' 6 ) 02/01/2024 1:15 PM EST Body Mass Index 33.89 02/01/2024 1:15 PM EST Plan of Treatment Health Maintenance Due Date Last Done Comments Breast Cancer Screening 1965 Hepatitis B Vaccines (1 of 3 - 19+ 3-dose series) 11/09/1986 Cervical Cancer Screening: P ap Smear 11/09/1988 Zoster Vaccines (1 of 2) 11/09/2017 COVID-19 Vaccine ( - 2023-2 5 season) 2023 03/30/2021, 07/10/2020 Influenza Vaccine (#1) 2023 01/08/2018 Colorectal Cancer Screening: Colonoscopy 02/01/2024 Depression Screening 02/01/2024 HIV Screening 02/01/2024 Hepatitis C Screening 02/01/2024 Medicare Annual Wellness Visit 02/01/2024 Social Influencers of Health Screening 02/01/2024 DTaP,Tdap,and Td Vaccines (2 - Td or Tdap) 10/25/2031 10/24/2021 Pneumococcal Vaccine: 50+ Years Completed 10/24/2021 Pneumococcal Vaccine: Pediatrics (0 to 5 Years) and At-Risk Patients (6 to 64 Years) Aged Out 10/24/2021 No longer eligible b ased on patient's age to complete this topic HIB Vaccines Aged Out No longer eligi ble based on patient's age to complete this topic HPV Vaccines Aged Out No longer eligi ble based on patient's age to complete this topic Hepatitis A Vaccines Aged Out No long er eligible based on patient's age to complete this topic IPV Vaccines Aged Out No longer eligi ble based on patient's age to complete this topic MMR Vaccines Aged Out No longer eligi ble based on patient's age to complete this topic Meningococcal ACWY Vaccine Aged Out N o longer eligible based on patient's age to complete this topic Meningococcal B Vaccine Aged Out No l onger eligible based on patient's age to complete this topic RSV Immunization Patients Under 20 months Aged Out No longer eligible b ased on patient's age to complete this topic Varicella Vaccines Aged Out No longer eligible based on patient's age to complete this topic Insurance MEDICARE MEDICAID - [place] Care Teams Db2 Systems Programmer Relationship Specialty Start Date End Date Jannette Ahmadi MD [address] [place] [address] PCP - General Internal Medicine 02/01/24
[2024-06-18 14:38] VITALS: BP 131/61; PULSE 65; BMI 33.8
--- NOTE | 2024-06-18 14:38 | A.OFFVIS_ITS ---
Vital Signs 06/18/24 14:38 Height 5 ft 6 in Weight 209 lb 7.026 oz BMI 33.8 BP 131/61 Blood Pressure Location Rt brachial Position Sitting Pulse 65 Intake Visit Reasons: follow up 6 months Intake Note: Patient in office today in 6 months follow up of CIC. CC: The patient reports doing better. Partner Marketing Manager Required: Yes Partner Marketing Manager Services: Partner Marketing Manager Offered & Declined Accompanied by: Self / Same As Patient Allergies ciprofloxacin [From CIPRO] Allergy (Severe, Verified 06/18/24 14:48) UNABLE TP MOVE lisinopril [LISINOPRIL] Allergy (Severe, Verified 06/18/24 14:48) ANGIOEDEMA seafood Allergy (Severe, Verified 06/18/24 14:48) Anaphylaxis duloxetine [From CYMBALTA] Allergy (Intermediate, Verified 06/18/24 14:48) ABDOMINAL PAIN (IN HIGHER THAN 30 MG DOSE) HPI HPI follow up 6 months: Details: Assessment & Plan (1) GERD (gastroesophageal reflux disease): Code(s): K21.9 - Gastro-esophageal reflux disease without esophagitis Category: Medical (2) Chronic idiopathic constipation: Code(s): K59.04 - Chronic idiopathic constipation Category: Medical Plan Setswana #[id number] She says she is NOT on Mounjaro ? availability. I did let her know that when or if she does start this it could cause worsening constipation and she has been consult me if this becomes problematic. She is doing well and is stable on her LInzess, simethicone, and bisacody. ROV 6 mos. Medications: Refilled bisacodyl 2 tablets by mouth at bedtime 10 mg (2 x 5 mg) PO BEDTIME 60 tabs 6RF K59.04 - Chronic idiopathic constipation linaclotide (Linzess) 290 mcg PO DAILY 90 caps 6RF 90 days K59.04 - Chronic idiopathic constipation dexlansoprazole (Dexilant) 60 mg PO DAILY 90 caps 3RF 90 days K21.9 - Gastro- esophageal reflux disease without esophagitis simethicone after meals 180 mg PO QID 120 caps 6RF 30 days Discontinued tirzepatide (Mounjaro) Discontinued Reason: Patient Completed Course 2.5 mg (0.5 mL) subcut QWEEK 4 weeks 2 mL 0RF E11.9 - Type 2 diabetes mellitus without complications X-RAY OF THORACIC SPINE 01/12/2023 FINDINGS: No acute visible fracture or dislocation. Slight dextrocurvature of the midthoracic spine. Multilevel degenerative changes with disc space narrowing, osteophyte ridge, and facet arthropathy. Vertebral body heights and disc spaces are otherwise maintained. Posterior elements are intact. Paraspinal soft tissues are unremarkable. Visualized portions of the chest and upper abdomen are unremarkable. XR/XR thoracic spine 2V IMPRESSION: 1. No acute visible fracture or dislocation. 2. Slight dextrocurvature of the midthoracic spine. 3. Multilevel degenerative changes. TODAY'S VISIT Setswana #declines She is doing well and is stable on her Dexilant, LInzess, Motegrity, simethicone, and bisacody. Return office visit in 6 months [facility] Medical History (Updated 06/18/24 @ 14:54 by CASSY Yeboah) Epigastric pain Adult general medical exam Vaginal irritation Back pain Constipation due to opioid therapy URI (upper respiratory infection) Encounter to discuss test results Encounter for Medicare annual wellness exam Abnormal TSH Knee pain Lumbar degenerative disc disease Moderate major depression, single episode Hot flashes Anxiety Fibromyalgia Essential hypertension Dyslipidemia Diabetes mellitus Surgical History H/O colonoscopy History of total abdominal hysterectomy and bilateral salpingo-oophorectomy History of tubal ligation History of arthroscopy of right knee Family History Father Diabetes Hypertension Mother Diabetes Hypertension Family/Other FH: mental illness Brother No problems noted. Sister No problems noted. Son No problems noted. Daughter No problems noted. Social History Household Members: Family Housing: House Alcohol intake: never Patient Tobacco Use Status: Never used Tobacco e-Cigarette/Vaping Use: Never Used Second Hand Smoke Exposure: No service: No Current occupational status: disabled Cognitive needs: No Hearing needs: No Vision needs: Yes Review of Systems Const Denies fatigue, Denies fever(s), Denies night sweats, Denies poor appetite and Denies weight loss Eyes Details: glasses Reports requires corrective lenses ENT Reports Normal hearing present, Denies dental pain, Denies dysphagia, Denies hearing loss, Denies mouth pain, Denies odynophagia, Denies throat swelling, Denies tongue swelling and Reports other (Dentition adequate) Card Reports no additional complaints Resp Reports no additional complaints GI Details: Denies abdominal pain, Denies melena, Denies bloating, Denies hematochezia, Reports constipation, Denies GI cramping, Denies dysphagia, Denies excessive flatus, Denies early satiety, Reports heartburn, Denies diarrhea, Denies nausea, Denies odynophagia, Denies vomiting and Denies hematemesis Skin/Breast Denies pruritus, Denies lesions, Denies rash and Denies jaundice Neuro Reports Normal hearing present and Denies Abnormal speech present Endo Denies fatigue Aller/Immun Denies throat swelling and Denies tongue swelling Physical Exam Vital Signs: Last Vital Signs Pulse 65 06/18/24 14:38 BP 131/61 06/18/24 14:38 BMI result Body Mass Index 33.8 Const General: cooperative, no acute distress, well developed and well groomed Nutritional Appearance: well nourished and obese Orientation/consciousness: oriented to person, oriented to place and oriented to time Limitations: language barrier HEENT Head: Yes normocephalic and Yes atraumatic Eyes General: appearance normal, both eyes and all related structures Pupils: Equal, round and reactive pupils present Neck Neck: Yes normal visual inspection and Yes no lymphadenopathy Thyroid: Thyroid normal Resp Effort & Inspection: normal respiratory effort and able to speak in complete sentences Auscultation: clear to auscultation bilaterally Cardio Rate: regular rate Rhythm: regular rhythm Heart sounds: Normal, physiologic split S2 sound present Peripheral pulses: radial pulses present and posterior tibial pulses present GI Inspection: No distended, No Abdominal panniculus present and Yes obesity Palpation (GI): Soft to palpation, nontender, no guarding, not rigid and No hepatosplenomegaly present Percussion: Yes normal to percussion Auscultation: normal bowel sounds Rectal Exam - Female: deferred Skin General skin exam: no rashes or lesions noted, turgor normal, skin not dry, no jaundice, No spider nevi and no striae Rashes: no rashes Nails: normal Neuro General: oriented to person, oriented to place and oriented to time Cranial nerves: Yes Equal, round and reactive pupils present and Yes Normal hearing present Speech: No Abnormal speech present Extrem General: Yes normal to inspection, No clubbing, No cyanosis and No edema Psych Appearance: grossly normal and well kempt Mental Status: mental status grossly normal Speech and movement: Normal speech and movement present Affect: normal affect Attitude: cooperative Thought process: Normal thought process present and not confabulating Thought content: Normal thought content present Insight: Limited insight present (Psych) Judgement: Limited judgement present (Psych) Assessment & Plan Assessment & Plan (1) Chronic idiopathic constipation: Code(s): K59.04 - Chronic idiopathic constipation Category: Medical (2) GERD (gastroesophageal reflux disease): Code(s): K21.9 - Gastro-esophageal reflux disease without esophagitis Category: Medical Plan Setswana #declines She is doing well and is stable on her Dexilant, LInzess, Motegrity, simethicone, and bisacody. Return office visit in 6 months Medications: Refilled bisacodyl 10 mg (2 x 5 mg) PO BEDTIME 60 tabs 6RF K59.04 - Chronic idiopathic constipation Motegrity (prucalopride) 2 mg PO DAILY 30 tabs 2RF NS K59.04 - Chronic idiopathic constipation dexlansoprazole (Dexilant) 60 mg PO DAILY 90 caps 3RF 90 days K21.9 - Gastro- esophageal reflux disease without esophagitis simethicone after meals 180 mg PO QID 120 caps 6RF 30 days Resumed linaclotide (Linzess) 290 mcg PO DAILY 90 caps 6RF 90 days K59.04 - Chronic idiopathic constipation linaclotide (Linzess) 290 mcg PO DAILY 90 days 90 caps 6RF K59.04 - Chronic idiopathic constipation Coding Level of Care Code Est Pt Level 3 (45253) Diagnoses Chronic idiopathic constipation K59.04 GERD (gastroesophageal reflux disease) K21.9
== END 2024-06-18 15:01 | disposition home or self-care (01) ==
LOC: HO.HGI 14:08
PROVIDERS: PCP Internal Medicine; Visit Provider Nurse Practitioner
DX: K59.04 Chronic idiopathic constipation (principal); K21.9 Gastro-esophageal reflux disease without esophagitis
CPT/HCPCS: 99213

== ENCOUNTER → 2024-06-18 14:07 | Outpatient (BNVA) | payer MEDICARE, MEDICAID, SELFPAY | PROVIDERS: PCP Internal Medicine; Visit Provider Nurse Practitioner | DX: K59.04 Chronic idiopathic constipation (principal); K21.9 Gastro-esophageal reflux disease without esophagitis | CPT/HCPCS: 99212 ==

== ENCOUNTER 2024-07-08 11:12 | Outpatient (REF) | payer MEDICARE, MEDICAID, SELFPAY ==
[2024-07-08 12:29] LABS: Appearance Urine Clear; Color Urine Dark Yellow; Glucose Urine UA >=1000 mg/dL (Negative); Leukocyte Esterase Urine Small (1+) (Negative); Nitrite Urine Negative (Negative); UMIC TRIGGER UACC YES; Urine Blood Negative (Negative); Urine Ketones Negative (Negative); Urine Protein Negative (Neg-Trace)
[2024-07-08 12:35] LABS: Bacteria Urine Trace (None Seen); Hyaline Casts Urine 0-2 /LPF (0-2); RBC Urine 0-2 /HPF (0-2); UACC Culture Trigger YES
== END 2024-07-08 11:13 | disposition home or self-care (01) ==
LOC: HO.LAB 11:12
PROVIDERS: PCP Internal Medicine; Visit Provider Internal Medicine
DX: R30.0 Dysuria (principal)
CPT/HCPCS: 81001; 87086; 87147

== ENCOUNTER 2024-07-12 13:55 | Outpatient (AMB) | payer MEDICARE, MEDICAID, SELFPAY ==
--- NOTE | 2024-07-12 14:01 | A.OFFPC_ITS ---
Vital Signs 07/12/24 14:03 Height 5 ft 6 in Weight 202 lb BMI 32.6 BP 126/72 Blood Pressure Location Lt brachial Position Sitting Intake Visit Reasons: dm Intake Note: Patient here for a follow up DM Digital Media Buyer Required: Yes Digital Media Buyer Language: Metal Engineering Process Worker Name: Jannette Ahmadi MD Information Interpreted: non-clinical & clinical Accompanied by: Self / Same As Patient Allergies ciprofloxacin [From CIPRO] Allergy (Severe, Verified 07/12/24 14:21) UNABLE TP MOVE lisinopril [LISINOPRIL] Allergy (Severe, Verified 07/12/24 14:21) ANGIOEDEMA seafood Allergy (Severe, Verified 07/12/24 14:21) Anaphylaxis duloxetine [From CYMBALTA] Allergy (Intermediate, Verified 07/12/24 14:21) ABDOMINAL PAIN (IN HIGHER THAN 30 MG DOSE) Medication List - Last Reconciled 07/12/24 by Jannette Ahmadi MD albuterol sulfate 2.5 mg (3 mL) inhalation Q4-6H PRN 30 days amlodipine 5 mg PO DAILY 90 days atorvastatin 80 mg PO BEDTIME 90 days back brace As directed bisacodyl 10 mg (2 x 5 mg) PO BEDTIME blood sugar diagnostic (FreeStyle Test strips) Use 1 test strip once a day blood-glucose meter (FreeStyle [place] Lite kit) As directed ffbmulvtoh-lxmpjgghkrcbc-dhip 50-325-40 mg 1 tab PO Q6H PRN 30 days cane As directed cholecalciferol (vitamin D3) 25 mcg PO DAILY 90 days clonidine HCl 0.1 mg PO BID dapagliflozin propanediol (Farxiga) 5 mg PO DAILY 90 days dexlansoprazole (Dexilant) 60 mg PO DAILY 90 days diclofenac potassium 50 mg PO BID epinephrine IM estradiol 0.01%(0.1mg/gram) 1 appful vaginal DAILY PRN 30 days fluticasone furoate-vilanterol 200-25 mcg/dose (Breo Ellipta) 1 ea inhalation DAILY fluticasone propionate 50 mcg/actuation 1 spray intranasal DAILY 30 days fremanezumab-vfrm (Ajovy Syringe) 225 mg subcut .monthly hydroxyzine pamoate (Vistaril) 50 mg PO BID PRN ketotifen fumarate 0.025%(0.035%) 1 drp ophthalmic (eye) BID PRN lancets (TRUEplus Lancets) USE 1 LANCET EVERY DAY leg brace (Knee Brace Large-XLarge) As directed linaclotide (Linzess) 290 mcg PO DAILY 90 days metoprolol succinate ER 25 mg PO DAILY 90 days montelukast 10 mg PO DAILY Motegrity (prucalopride) 2 mg PO DAILY NS nitrofurantoin macrocrystal 100 mg PO BID 7 days oxycodone-acetaminophen 5-325 mg 1 tab PO TID PRN propranolol 10 mg PO BID sertraline 100 mg PO DAILY simethicone 180 mg PO QID 30 days Ventolin HFA 90 mcg/actuation (albuterol sulfate) 2 puffs inhalation Q6H PRN 30 days NS [wipes As directed] zolpidem 10 mg PO BEDTIME PRN Tobacco use date assessed: 03/11/24 Dental Screening Dental Screen Date: 03/11/24 HPI HPI Comments History of Present Illness Details The patient is a 58-year-old female presenting for a follow-up on her laboratory results and medication management. An important focus of this visit was the review of her recent lab results and the management of her medication regimen. Her A1c was recorded at 5.7, indicating good control of diabetes, last measured in March. Historically, her cholesterol was slightly elevated, and she had a noted deficiency in Vitamin D. Her extensive medication list reflects controlled management of various chronic conditions, including hypertension, asthma, GERD, migraine, and depression. Adherence to medications, particularly regarding the use of Mounjaro and Farxiga, was clarified given prior insurance challenges, emphasizing the importance of maintaining effective communication with her pharmacy to ensure continuity of chronic care. Her activity plan involves follow-up labs scheduled for November, coinciding with her planned physical examination. Her current evaluation does not reveal any acute concerns, maintaining stability without evidence of chest pain or dyspnea. Recently discussed outstanding healthcare tasks include her forthcoming mammography and annual eye examination, marking a comprehensive approach to her healthcare regimen. No additional interventions were deemed necessary at this time. [facility] Medical History Epigastric pain Adult general medical exam Vaginal irritation Back pain Constipation due to opioid therapy URI (upper respiratory infection) Encounter to discuss test results Encounter for Medicare annual wellness exam Abnormal TSH Knee pain Lumbar degenerative disc disease Moderate major depression, single episode Hot flashes Anxiety Fibromyalgia Essential hypertension Dyslipidemia Diabetes mellitus Surgical History H/O colonoscopy History of total abdominal hysterectomy and bilateral salpingo-oophorectomy History of tubal ligation History of arthroscopy of right knee Family History Father Diabetes Hypertension Mother Diabetes Hypertension Family/Other FH: mental illness Brother No problems noted. Sister No problems noted. Son No problems noted. Daughter No problems noted. Social History Household Members: Family Housing: House Alcohol intake: never Patient Tobacco Use Status: Never used Tobacco e-Cigarette/Vaping Use: Never Used Second Hand Smoke Exposure: No service: No Current occupational status: disabled Cognitive needs: No Hearing needs: No Vision needs: Yes Questionnaire PHQ-9 Over the last 2 weeks, how often have you been bothered by any of the following problems? 1. Little interest or pleasure in doing things: several days 2. Feeling down, depressed, or hopeless: several days 3. Trouble falling or staying asleep, or sleeping too much: several days 4. Feeling tired or having little energy: several days 5. Poor appetite or overeating: several days 6. Feeling bad about yourself - or that you are a failure or have let yourself or your family down: not at all 7. Trouble concentrating on things, such as reading the newspaper or watching television: several days 8. Moving or speaking so slowly that other people could have noticed. Or the opposite - being so fidgety or restless that you have been moving around a lot more than usual: several days 9. Thoughts that you would be better off or of hurting yourself in some way: not at all Total score: 7 Depression Screening Interpretation: Positive Depression Screening Follow-up: Existing condition, In treatment, Community Mental Health Worker F/U and Follow- up Visit Requested Depression Screening Done: Yes 40311 - PHQ-9 Billing: Yes Source: Developed by Drs. Kaiser Huber, Jayla Montes, Kodak Lopez and colleagues, with an educational jarrell from [employer]. Thrive Questionnaire Date Thrive assessed: 07/12/24 I am a: Patient What is your living situation today?: I have a steady place to live Within the past 12 months, did the food you bought not last and you didn't have the money to get more?: Never true Within the past 12 months, did you worry whether your food would run out before you got money to buy more?: Never true Do you have trouble paying for medicines?: No Do you have trouble getting transportation to medical appointments?: No Do you have trouble paying your heating and electricity bill?: No Do you have trouble taking care of your child, family member or friend?: Yes Do you have trouble with day-to-day activities such as bathing, preparing meals, shopping, managing finances, etc.?: Yes Are you currently unemployed and looking for a job?: Yes Are you interested in more education?: No Please select the resources that you would like help with: None Currently or been in a relationship where the following occur: No concerns reported THRIVE Score: 0 AUDIT C Alcohol Use Questionnaire (AUDIT-C) 1. How often do you have a drink containing alcohol?: Never Total Score: 0 Score Reviewed/Action Taken: No DEEPTHI-7 AMB Questionnaire DEEPTHI-7 Date DEEPTHI - 7 assessed: 07/12/24 Feeling nervous, anxious, or on edge: 3 = Nearly every day Not being able to stop or control worryin = Several days Worrying too much about different things: 1 = Several days Trouble relaxin = Several days Being so restless that it is hard to sit still: 1 = Several days Becoming easily annoyed or irritable: 1 = Several days Feeling afraid as if something awful might happen: 1 = Several days Total DEEPTHI-7 score (0-4 normal; 5-9 mild; 10-14 moderate; 15-21 severe): 9 Source: Developed by Drs. Kaiser Huber, Jayla Montes, Kodak Lopez and colleagues, with an educational jarrell from [employer]. DEEPTHI-7 Assessment Billing DEEPTHI-7 Assessment Tool: DEEPTHI-7 Assessment 26349 Review of Systems Const All systems reviewed & are unremarkable except as noted in HPI and below Card Denies chest pain at rest, Denies chest pain with activity, Denies edema, Denies irregular heart rhythm, Denies claudication, Denies dyspnea, Denies dyspnea on exertion, Denies orthopnea, Denies paroxysmal nocturnal dyspnea and Denies slow heart rate Resp Denies cough, Denies dyspnea and Denies dyspnea on exertion Physical exam (Primary Care) Vital Signs: Last Vital Signs BP 126/72 07/12/24 14:03 BMI result Body Mass Index 32.6 BMI Assessment/Plan discussion: High BMI High, discussed plan: lifestyle, weight reduction, dietary and physical activity Tobacco/Smoking Status: Tobacco use Status Tobacco use date assessed 03/11/24 07/12/24 14:05 Patient Tobacco Use Status Never used Tobacco 07/12/24 14:05 e-Cigarette/Vaping Use Never Used 07/12/24 14:05 PHQ-9: PHQ-9 Score PHQ-9: Total score 7 07/12/24 14:05 Depression Screening Interpretation: Positive Depression Screening Follow-up: Existing condition, In treatment, Community Mental Health Worker F/U and Follow- up Visit Requested Thrive Assessment: Date of Thrive Assessment Date Thrive assessed 07/12/24 07/12/24 14:05 Currently or been in a relationship where the following occur: No concerns reported Resp Effort & Inspection: normal respiratory effort Auscultation: clear to auscultation bilaterally Cardio Jugular venous distension: no JVD Rate: regular rate Rhythm: regular rhythm Heart sounds: S1 normal heart sound present and S2 normal heart sound present Extrem General: Yes full ROM Results AMB Hemoglobin A1c AMB Hemoglobin A1c 5.5 % Last Edit by KELBY Lance on 07/12/24 14:0 7 Results Reviewed Results Reviewed: Laboratory Last Values Hgb A1c (Clinic) 5.5 % (4.0-6.0) 07/12/24 14:06 Coding Level of Care Code Est Pt Level 4 (35577) Complex EM visit Add On G2211 Diagnoses Moderate major depression, single episode F32.1 Type 2 diabetes mellitus without complication, without long-term current use of insulin E11.9 Diabetes mellitus type: type 2 Diabetes mellitus document restorer insulin use: without assisted use Diabetes mellitus complication status: without complication Dyslipidemia E78.5 Essential hypertension I10 GERD (gastroesophageal reflux disease) K21.9 Additional Codes PHQ-9 - 54206 - PHQ-9 Billing: Yes ([id number]) DEEPTHI-7 Assessment Billing - DEEPTHI-7 Assessment Tool: DEEPTHI-7 Assessment 37397 ([id number]) Time Spent (min) 23 Assessment & Plan Assessment & Plan (1) Moderate major depression, single episode: Code(s): F32.1 - Major depressive disorder, single episode, moderate Category: Medical (2) Diabetes mellitus: Code(s): E11.9 - Type 2 diabetes mellitus without complications Category: Medical Qualifiers: Diabetes mellitus type: type 2 Diabetes mellitus assisted insulin use: without assisted use Diabetes mellitus complication status: without complication Qualified Code(s): E11.9 - Type 2 diabetes mellitus without complications (3) Dyslipidemia: Code(s): E78.5 - Hyperlipidemia, unspecified Category: Medical (4) Essential hypertension: Code(s): I10 - Essential (primary) hypertension Category: Medical (5) GERD (gastroesophageal reflux disease): Code(s): K21.9 - Gastro-esophageal reflux disease without esophagitis Category: Medical Plan The patient's A1c demonstrates well-managed prediabetes, and cholesterol is being monitored with Atorvastatin and Vitamin D supplementation continues. Her medication management remains a central aspect of managing her chronic conditions, including hypertension and asthma. With planned follow-up labs and evaluations and considering insurance dynamics for Mounjaro, further discussions on alternative approaches using Farxiga may ensue, subject to insurance provisions. Routine preventive measures, such as scheduled eye exams and mammograms, persist in accordance with her overarching health management plan. Patient was informed and verbally consented to the use of an ambient scribe for clinic note documentation during this visit. In this visit, I reviewed the patient's hemoglobin A1c results indicating effective management of prediabetes. We discussed the management of her cholesterol with current statin therapy and continued Vitamin D supplementation. Medications, including new approvals like Mounjaro and its interaction with Farxiga, were discussed with an emphasis on their insurance-dependent administration. Due consideration was given to scheduling future labs for November, paired with wellness visits to maintain comprehensive care. Lastly, instructions for forthcoming eye examinations and mammography screening were underscored, with emphasis on continuity in chronic condition management given the patient's complex therapy regimens. Orders: Orders Lipid Panel 4 Months E78.5 - Hyperlipidemia, unspecified Comprehensive [place]. Panel Fast 4 Months E11.9 - Type 2 diabetes mellitus without complications AMB Hemoglobin A1c Today E11.9 - Type 2 diabetes mellitus without complications Microalbumin, Random (w Creat) 4 Months R80.9 - Proteinuria, unspecified Vitamin D 25-OH Total 4 Months E55.9 - Vitamin D deficiency, unspecified Medications: New tirzepatide (Mounjaro) 5 mg (0.5 mL) subcut QWEEK 4 weeks 2 mL 0RF E11.9 - Type 2 diabetes mellitus without complications Patient Instructions: - Continue current medication regimen as discussed. - Schedule and complete labs before November physical evaluation. - Attend planned mammogram and eye examination appointments. - Contact your pharmacy to resolve any medication issues concerning Mounjaro. - Follow up on vitamin D supplementation and maintain adherence. - Seek care if experiencing chest pain or difficulty breathing.
[2024-07-12 14:03] VITALS: BP 126/72; BMI 32.6
--- OUTSIDE RECORDS SUMMARY | 2024-07-12 15:28 | XMS_ITS | Clinical Summary ---
Author Organization [facility] Address [address] [place] [address] Phone Care Team Providers Care Veneer Drier Tailer Name Role Phone Jannette Ahmadi MD Primary Care Provider [phone] Allergies Active Allergy Reactions Criticality Noted Date Comments Ciprofloxacin 02/01/2024 Lisinopril 02/01/2024 Medical History Medical History Date Comments Diabetes mellitus ([facility] V24, [facility] V28) Asthma Hypertension Migraine Social History Tobacco [...] - 2023-2 5 season) 2023 03/30/2021, 07/10/2020 Colorectal Cancer Screening: Colonoscopy 02/01/2024 Depression Screening 02/01/2024 HIV Screening 02/01/2024 Hepatitis C Screening 02/01/2024 Medicare Annual Wellness Visit 02/01/2024 Social Influencers of Health Screening 02/01/2024 Influenza Vaccine (Season Ended) 2024 01/08/2018 DTaP,Tdap,and Td Vaccines (2 - Td or [...] Insurance MEDICARE MEDICAID - [place] Care Teams Veneer Drier Tailer Relationship Specialty Start Date End Date Jannette Ahmadi MD [address] [place] [address] PCP - General Internal Medicine 02/01/24
--- OUTSIDE RECORDS SUMMARY | 2024-07-12 15:28 | XMS_ITS | Clinical Summary ---
Author Organization [facility] Address [address] [place] [address] Care Team Providers Care Administrative Support Manager Name Role Phone Unavailable Primary Care Provider [...] 11/09/2012 Imm-Zoster, Recombinant (1 of 2) 11/09/2017 [id number] ( season) 2023 022, 07/10/2020 Imm-Influenza (#1) 2023 01/08/2018 Alcohol and Drug Screen 03/10/2024 Depression Annual Screen 03/10/2024 Cervical Ablation/Cold-Knife Conization Discontinued Cervical Cryotherapy Discontinued Colposcopy Discontinued Endometrial Biopsy Discontinued Excision/Leep Discontinued HPV Genotyping Discontinued Vaginal Pap Discontinued Vulvoscopy Discontinued Insurance [place]
== END 2024-07-12 14:33 | disposition home or self-care (01) ==
LOC: HO.HMCH 13:55
PROVIDERS: PCP Internal Medicine; Visit Provider Internal Medicine
DX: F32.1 Major depressive disorder, single episode, moderate (principal); E11.9 Type 2 diabetes mellitus without complications; E78.5 Hyperlipidemia, unspecified; I10 Essential (primary) hypertension; K21.9 Gastro-esophageal reflux disease without esophagitis

== ENCOUNTER → 2024-07-12 13:55 | Outpatient (BNVA) | payer MEDICARE, MEDICAID, SELFPAY | PROVIDERS: PCP Internal Medicine; Visit Provider Internal Medicine | DX: F32.1 Major depressive disorder, single episode, moderate (principal); E11.9 Type 2 diabetes mellitus without complications; E78.5 Hyperlipidemia, unspecified; I10 Essential (primary) hypertension; K21.9 Gastro-esophageal reflux disease without esophagitis | CPT/HCPCS: 83036; 96127; 99212 ==

== ENCOUNTER 2024-07-21 11:49 | Outpatient (REF) | payer MEDICARE, MEDICAID, SELFPAY ==
[2024-07-21 12:06] LABS: Appearance Urine Clear; Color Urine Yellow; Glucose Urine UA >=1000 mg/dL (Negative); Leukocyte Esterase Urine Moderate (2+) (Negative); Nitrite Urine Negative (Negative); PH 6.5 (5.0-9.0); Specific Gravity - Urine 1.025 (1.005-1.025); UMIC TRIGGER UACC YES; Urine Blood Negative (Negative); Urine Ketones Negative (Negative); Urine Protein Negative (Neg-Trace)
[2024-07-21 12:09] LABS: Bacteria Urine None Seen (None Seen); Hyaline Casts Urine 0-2 /LPF (0-2); RBC Urine 0-2 /HPF (0-2); UACC Culture Trigger YES; WBC Urine 21-50 /HPF (0-5)
--- OUTSIDE RECORDS SUMMARY | 2024-07-21 12:38 | XMS_ITS | Clinical Summary ---
Author Organization [facility] Address [address] [place] [address] Care Team Providers Care Hop Worker Name Role Phone Unavailable Primary Care Provider [...] 11/09/2012 Imm-Zoster, Recombinant (1 of 2) 11/09/2017 [id number] ( season) 2023 022, 07/10/2020 Imm-Influenza (#1) 2023 01/08/2018 Alcohol and Drug Screen 03/10/2024 Depression Annual Screen 03/10/2024 Cervical Ablation/Cold-Knife Conization Discontinued Cervical Cryotherapy Discontinued Colposcopy Discontinued Endometrial Biopsy Discontinued Excision/Leep Discontinued HPV Genotyping Discontinued Vaginal Pap Discontinued Vulvoscopy Discontinued Insurance [place]
--- OUTSIDE RECORDS SUMMARY | 2024-07-21 12:38 | XMS_ITS | Clinical Summary ---
Author Organization [facility] Address [address] [place] [address] Phone Care Team Providers Care Die Out Worker Name Role Phone Jannette Ahmadi MD Primary Care Provider [phone] Allergies Active Allergy Reactions Criticality Noted Date Comments Ciprofloxacin 02/01/2024 Lisinopril 02/01/2024 Medical History Medical History Date Comments Diabetes mellitus ([facility] V24, [facility] V28) Asthma Hypertension Migraine Social [...] Insurance MEDICARE MEDICAID - [place] Care Teams Die Out Worker Relationship Specialty Start Date End Date Jannette Ahmadi MD [address] [place] [address] PCP - General Internal Medicine 02/01/24
== END 2024-07-21 11:50 | disposition home or self-care (01) ==
LOC: HO.LAB 11:49
PROVIDERS: PCP Internal Medicine; Visit Provider Internal Medicine
DX: R30.0 Dysuria (principal)
CPT/HCPCS: 81001; 87086

== ENCOUNTER 2024-08-11 12:54 | Outpatient (REF) | payer MEDICARE, MEDICAID, SELFPAY ==
--- OUTSIDE RECORDS SUMMARY | 2024-08-11 13:18 | XMS_ITS | Clinical Summary ---
Author Organization [facility] Address [address] [place] [address] Phone Care Team Providers Care Transportation Worker Name Role Phone Jannette Ahmadi MD Primary Care Provider [phone] Allergies Active Allergy Reactions Criticality Noted Date Comments Ciprofloxacin 02/01/2024 Lisinopril 02/01/2024 Medical History Medical History Date Comments Diabetes mellitus ([facility] V24, [facility] V28) Asthma Hypertension Migraine Social History [...] Insurance MEDICARE MEDICAID - [place] Care Teams Transportation Worker Relationship Specialty Start Date End Date Jannette Amhadi MD [address] [place] [address] PCP - General Internal Medicine 02/01/24
== END 2024-08-11 12:55 | disposition home or self-care (01) ==
LOC: HO.MAMMO 12:54
PROVIDERS: PCP Internal Medicine; Visit Provider Internal Medicine
DX: Z13.89 Encounter for screening for other disorder (principal)

== ENCOUNTER → 2024-08-13 10:45 | Outpatient (BNV) | payer MEDICARE, MEDICAID, SELFPAY | PROVIDERS: PCP Internal Medicine; Visit Provider Internal Medicine | DX: Z12.31 Encounter for screening mammogram for malignant neoplasm of breast (principal) | CPT/HCPCS: 77063; 77067 ==

== ENCOUNTER 2024-08-13 10:48 | Outpatient (REF) | payer MEDICARE, MEDICAID, SELFPAY ==
--- OUTSIDE RECORDS SUMMARY | 2024-08-13 11:42 | XMS_ITS | Clinical Summary ---
Author Organization [facility] Address [address] [place] [address] Phone Care Team Providers Care Replenishment Merchandising Associate Name Role Phone Jannette Ahmadi MD Primary Care Provider [phone] Allergies Active Allergy Reactions Criticality Noted Date Comments Ciprofloxacin 02/01/2024 Lisinopril 02/01/2024 Medical History Medical History Date Comments Diabetes mellitus ([facility] V24, [facility] V28) Asthma Hypertension Migraine Social History Tobacco [...] Insurance MEDICARE MEDICA[place] - [place] Care Teams Replenishment Merchandising Associate Relationship Specialty Start Date End Date Jannette Ahmadi MD [address] [place] [address] PCP - General Internal Medicine 02/01/24
== END 2024-08-13 10:49 | disposition home or self-care (01) ==
LOC: HO.MAMMO 10:48
PROVIDERS: PCP Internal Medicine; Visit Provider Internal Medicine
DX: Z12.31 Encounter for screening mammogram for malignant neoplasm of breast (principal)
CPT/HCPCS: 77063; 77067

== ENCOUNTER 2024-11-09 08:46 | Outpatient (REF) | payer MEDICARE, MEDICAID, SELFPAY ==
[2024-11-09 10:02] LABS: MANUAL DIFF FLAG NO
[2024-11-09 10:40] LABS: Hematocrit 38.6 % (37.0-47.0); Hemoglobin 12.3 g/dl (12.0-16.0); Imm Gran Abs Auto 0.02 X10*3/uL (0.00-0.03); Imm Gran Pct Auto 0.3 % (0.0-0.4); Lymphocytes Absolute Auto 2.2 X10*3/uL (1.2-4.9); Mean Corpuscular HGB Conc 31.9 g/dl (31.0-35.0); Mean Corpuscular Hemoglobin 28.0 pg (27.0-33.0); Mean Corpuscular Volume 87.7 fL (80.0-98.0); NRBC Abs Auto 0.000 X10*3/uL (0.0-0.012); NRBC Pct Auto 0.0 /100WBC (0.0-0.2); Platelet Count 313 X10*3/uL (160-400); Red Blood Count 4.40 X10*6/uL (4.20-5.50); White Blood Count 7.1 X10*3/uL (4.8-10.8)
[2024-11-09 11:02] LABS: Alanine Aminotransferase 28 U/L (0-31); Albumin Level 4.3 g/dL (3.5-5.0); Alkaline Phosphatase 102 U/L (39-117); Anion Gap 12 (12-20); Aspartate Amino Transferase 29 U/L (5-31); Blood Urea Nitrogen 11 mg/dL (9-16); Calcium 8.7 mg/dL (8.4-10.2); Carbon Dioxide 28 mmol/L (22-29); Chloride 108 mmol/L (96-108); Cholesterol 131 mg/dL (<200); Estimated Glomerular Filt Rate > 60; HDL Cholesterol 43 mg/dL (>40); Iron 65 mcg/dL (30-160); Percent Iron Saturation 29 % (15-50); Potassium 3.8 mmol/L (3.3-5.1); Sodium 144 mmol/L (135-145); Total Iron Binding Capacity 228 mcg/dL (228-428); Total Protein 7.1 g/dL (6.5-8.0); Triglycerides 66 mg/dL (<150); Unsaturated Iron Binding 163 ug/dL
[2024-11-09 11:20] LABS: Appearance Urine Cloudy; Glucose Urine UA >=1000 mg/dL (Negative); PH 5.0 (5.0-9.0); Specific Gravity - Urine >= 1.030 (1.005-1.025); UMIC TRIGGER UACC YES
[2024-11-09 11:27] LABS: UACC Culture Trigger YES
[2024-11-09 11:28] LABS: Folate 6.7 ng/mL (> or = 4.0); Vitamin B12 490 pg/mL (200-900)
[2024-11-09 12:09] LABS: Microalbum/Creatinine Ratio Ur 8.1 ug/mg cr (<30)
== END 2024-11-09 08:47 | disposition home or self-care (01) ==
LOC: HO.LAB 08:46
PROVIDERS: PCP Internal Medicine; Visit Provider Internal Medicine
DX: Z00.00 Encounter for general adult medical examination without abnormal findings (principal); E11.9 Type 2 diabetes mellitus without complications; F33.0 Major depressive disorder, recurrent, mild; R80.9 Proteinuria, unspecified; E53.8 Deficiency of other specified B group vitamins; E78.5 Hyperlipidemia, unspecified; I10 Essential (primary) hypertension; Z98.51 Tubal ligation status; Z79.899 Other long term (current) drug therapy
CPT/HCPCS: 36415; 80053; 80061; 81001; 82043; 82306; 82570; 82607; 82746; 83036; 83540; 85025; 87086; 96127

== ENCOUNTER 2024-11-09 08:46 | Outpatient (AMB) | payer MEDICARE, MEDICAID, SELFPAY ==
[2024-11-09 08:49] VITALS: BP 126/72; PULSE 65; O2SAT 97; BMI 30.2
--- NOTE | 2024-11-09 08:51 | A.OFFVIS_ITS ---
Intake Vital Signs 11/09/24 08:49 11/09/24 09:02 Height 5 ft 6 in Weight 187 lb BMI 30.2 30.2 BP 126/72 Blood Pressure Location Lt brachial Position Sitting Pulse 65 Pulse Source Pulse Oximeter Pulse Oximetry (%) 97 Oxygen Delivery Method Room Air Intake Visit Reasons: Wellness Exam Dials Supervisor Required: No Accompanied by: Self / Same As Patient Allergies ciprofloxacin (From CIPRO) Allergy (Severe, Verified 11/09/24 09:09) UNABLE TP MOVE lisinopril (LISINOPRIL) Allergy (Severe, Verified 11/09/24 09:09) ANGIOEDEMA seafood Allergy (Severe, Verified 11/09/24 09:09) Anaphylaxis duloxetine (From CYMBALTA) Allergy (Intermediate, Verified 11/09/24 09:09) ABDOMINAL PAIN (IN HIGHER THAN 30 MG DOSE) Medication List - Last Reconciled 11/09/24 by Jannette Ahmadi MD albuterol sulfate 2.5 mg (3 mL) inhalation Q4-6H PRN 30 days amlodipine 5 mg PO DAILY 90 days atorvastatin 80 mg PO BEDTIME 90 days back brace As directed bisacodyl 10 mg (2 x 5 mg) PO BEDTIME blood sugar diagnostic (FreeStyle Test strips) Use 1 test strip once a day blood-glucose meter (FreeStyle [place] Lite kit) As directed [id number] 50-325-40 mg 1 tab PO Q6H PRN 30 days cane As directed cholecalciferol (vitamin D3) 25 mcg PO DAILY 90 days clonidine HCl 0.1 mg PO BID dapagliflozin propanediol (Farxiga) 5 mg PO DAILY 90 days dexlansoprazole (Dexilant) 60 mg PO DAILY 90 days diclofenac potassium 50 mg PO BID epinephrine IM estradiol 0.01%(0.1mg/gram) 1 appful vaginal DAILY PRN 30 days fluticasone furoate-vilanterol 200-25 mcg/dose (Breo Ellipta) 1 ea inhalation DAILY fluticasone propionate 50 mcg/actuation 1 spray intranasal DAILY 30 days fremanezumab-vfrm (Ajovy Syringe) 225 mg subcut .monthly lancets (TRUEplus Lancets) USE 1 LANCET EVERY DAY leg brace (Knee Brace Large-XLarge) As directed levocetirizine 5 mg PO DAILY linaclotide (Linzess) 290 mcg PO DAILY 90 days metoprolol succinate ER 25 mg PO DAILY 90 days montelukast 10 mg PO DAILY Motegrity (prucalopride) 2 mg PO DAILY NS oxycodone-acetaminophen 5-325 mg 1 tab PO TID PRN propranolol 10 mg PO BID sertraline 100 mg PO DAILY simethicone 180 mg PO QID 30 days tirzepatide (Mounjaro) 5 mg (0.5 mL) subcut QWEEK 4 weeks Ventolin HFA 90 mcg/actuation (albuterol sulfate) 2 puffs inhalation Q6H PRN 30 days NS [wipes As directed] zolpidem 10 mg PO BEDTIME PRN HPI HPI Comments History of Present Illness Details The patient is a 59-year-old female presenting with a Medicare annual wellness visit. PPP handed to patient. [place] of care reviewed and updated. She has diabetes mellitus type 2 and her A1c today is 5.4% which is well controlled. She has a history of depression, currently managed with sertraline, with a PHQ-9 score indicating mild depression. Her medical history includes hypertension and diabetes mellitus, both of which are familial conditions, as her father had both and her mother is currently living with them. The patient also reports constipation, for which she is taking linaclotide. She has allergies managed with levocetirizine. Her preventative care measures include a colonoscopy in 2019, which was normal, a mammogram in August of this year, which was negative, and a dilated eye exam in August showing no diabetic retinopathy. - Tdap vaccine administered in 2021 - Colonoscopy in 2019, normal results - Mammogram in August 2022, negative resul ts - Dilated eye exam in August 2022, no diab etic retinopathy [facility] Medical History (Updated 11/09/24 @ 09:30 by Jannette Ahmadi MD) Encounter for Medicare annual wellness exam Epigastric pain Adult general medical exam Vaginal irritation Back pain Constipation due to opioid therapy URI (upper respiratory infection) Encounter to discuss test results Abnormal TSH Knee pain Lumbar degenerative disc disease Moderate major depression, single episode Hot flashes Anxiety Fibromyalgia Essential hypertension Dyslipidemia Diabetes mellitus Surgical History H/O colonoscopy History of total abdominal hysterectomy and bilateral salpingo-oophorectomy History of tubal ligation History of arthroscopy of right knee Family History Father Diabetes Hypertension Mother Diabetes Hypertension Family/Other FH: mental illness Brother No problems noted. Sister No problems noted. Son No problems noted. Daughter No problems noted. Social History Household Members: Family Housing: House Alcohol intake: never Patient Tobacco Use Status: Never used Tobacco e-Cigarette/Vaping Use: Never Used Second Hand Smoke Exposure: No service: No Current occupational status: disabled Cognitive needs: No Hearing needs: No Vision needs: Yes Questionnaire Medicare Wellness Checkup What is your age?: 65-69 (59) What gender do you identify with?: female During the past 4 weeks, how much have you been bothered by emotional problems such as feeling anxious, depressed, irritable, sad or downhearted, and blue?: slightly During the past 4 weeks, has your physical & emotional health limited your social activities with family, friends, neighbors, or groups?: slightly During the past 4 weeks, how much bodily pain have you generally had?: severe pain During the past 4 weeks, was someone available to help you if you needed & wanted help?: yes, some During the past 4 weeks, what was the hardest physical activity you could do for at least 2 minutes?: light Can you get to places out of walking distance without help? (For eg., can you travel alone on buses, taxis or drive your car?): No Can you go shopping for groceries or clothes without someone's help?: Yes Can you prepare your own meals?: Yes Can you do your housework without help?: No Because of any health problems, do you need the help of another person with your personal care needs such as eating, bathing, dressing or getting around the house?: No Can you handle your own money without help?: Yes During the past 4 weeks, how would you rate your health in general?: good During the past 4 weeks how have things been going for you?: good & bad parts about equal Are you having difficulties driving your car?: sometimes Do you always fasten your seat belt when you are in a car?: yes, usually During past 4 weeks, have you been bothered by the following: sometimes: Trouble eating well? and often: Sexual problems? and Tiredness or fatigue? Have you fallen 2 or more times in the past year?: No Are you afraid of falling?: Yes Are you a smoker?: no During the past 4 weeks, how many drinks of wine, beer, or other alcoholic beverages did you have?: no alcohol at all Do you exercise for about 20 minutes 3 or more times a week?: no, I usually do not exercise this much Have you been given information to help with the following?: no: Hazards in your house that might hurt you? and no: Keeping track of your medications? How often do you have trouble taking medicines the way you have been told to take them?: I always take medicine as prescribed How confident are you that you can control & manage most of your health problems?: somewhat confident What is your race?: or origin or descent Mini Mental State Exam (MMSE) Orientation What is the (year) (season) (date) (day) (month)?: year, season, date, day and month Where are we (state) (county) (town or city) (hospital) (floor)?: state, county, town or city, hospital/clinic and floor Registration Name of 3 unrelated objects clearly and slowly, then ask patient to repeat all 3 of them. (1st repeat determines score. Make sure they can repeat all three): object 1, object 2 and object 3 Attention & Calculation (CHOOSE ONE) Spell WORLD backwards (DLROW): 5 letters Recall Ask patient to repeat the 3 items from question #3.: object 1, object 2 and object 3 Language Show patient a wristwatch & ask what it is. Repeat for pencil.: watch and pencil Ask the patient to repeat the phrase 'No ifs, ands, or buts' after you.: correct Ask the patient to 'take a piece of paper with their right hand' 'fold paper in half' 'place paper on floor': take paper in right hand, fold paper in half and place paper on floor Print the sentence 'CLOSE YOUR EYES' on a piece. If patient actually closes eyes then score.: followed written direction Give patient a blank piece of paper & ask to write a sentence. Score if it contains a noun & verb.: sentence contains subject and verb Ask patient to copy figure of intersecting pentagons exactly. Score if all 10 angles & 2 intersects are included.: all 10 angles present & 2 are intersected Score Score: 30 Activity of Daily Living Bathing - sponge bath, tub bath or shower: receives help in bathing only one body part (such as back or leg) Dressing - getting clothes from closets & drawers, including inner/outer garments & fasteners.: gets clothes & gets dressed without help, except for help tying shoes Toileting - going to the 'toilet room' for urine/bowel elimination & cleaning self/arranging clothes: goes to toilet room, cleans self, arranges clothes without help Transfer: moves in & out of bed and chair without help (may use support object) Continence: controls urination/bowel movements completely by self Feeding: feeds self without help Total Score: 0 Information obtained from: patient Using telephone: independent Traveling: dependent Shopping: dependent Preparing meals: dependent Housework: dependent Taking medicine: independent Managing money: independent PHQ-9 Over the last 2 weeks, how often have you been bothered by any of the following problems? 1. Little interest or pleasure in doing things: several days 2. Feeling down, depressed, or hopeless: several days 3. Trouble falling or staying asleep, or sleeping too much: several days 4. Feeling tired or having little energy: several days 5. Poor appetite or overeating: several days 6. Feeling bad about yourself - or that you are a failure or have let yourself or your family down: several days 7. Trouble concentrating on things, such as reading the newspaper or watching television: several days 8. Moving or speaking so slowly that other people could have noticed. Or the opposite - being so fidgety or restless that you have been moving around a lot more than usual: several days 9. Thoughts that you would be better off or of hurting yourself in some way: not at all Total score: 8 Depression Screening Interpretation: Positive Depression Screening Follow-up: Existing condition, In treatment, Community Mental Health Worker F/U and Follow- up Visit Requested Depression Screening Done: Yes 34671 - PHQ-9 Billing: Yes Source: Developed by Drs. Kaiser L. MayoJayla ravi, Kodak Lopez and colleagues, with an educational jarrell from [employer]. Review of Systems Const All systems reviewed & are unremarkable except as noted in HPI and below Card Denies chest pain at rest, Denies chest pain with activity, Denies edema, Denies irregular heart rhythm, Denies claudication, Denies dyspnea, Denies dyspnea on exertion, Denies orthopnea, Denies paroxysmal nocturnal dyspnea and Denies slow heart rate Resp Denies cough, Denies dyspnea and Denies dyspnea on exertion GI Denies abdominal pain, Denies change in bowel habits, Denies excessive flatus, Denies nausea and Denies vomiting Physical Exam Vital Signs: Last Vital Signs Pulse 65 11/09/24 08:49 BP 126/72 11/09/24 08:49 Pulse Ox 97 11/09/24 08:49 Oxygen Delivery Method Room Air 11/09/24 08:49 BMI result Body Mass Index 30.2 Resp Effort & Inspection: normal respiratory effort Auscultation: clear to auscultation bilaterally Cardio Jugular venous distension: no JVD Rate: regular rate Rhythm: regular rhythm Heart sounds: S1 normal heart sound present and S2 normal heart sound present Neuro Romberg Test: Negative Extrem General: Yes full ROM Results AMB Hemoglobin A1c AMB Hemoglobin A1c 5.4 % Last Edit by KELBY Caceres on 11/09/24 09:24 Results Reviewed Results Reviewed: Laboratory Last Values Hgb A1c (Clinic) 5.4 % (4.0-6.0) 11/09/24 09:11 Assessment & Plan Assessment & Plan (1) Encounter for Medicare annual wellness exam: Code(s): Z00.00 - Encounter for general adult medical examination without abnormal findings (2) Diabetes mellitus: Code(s): E11.9 - Type 2 diabetes mellitus without complications Qualifiers: Diabetes mellitus complication status: without complication Diabetes mellitus ferry terminal agent insulin use: without ferry terminal agent use Diabetes mellitus type: type 2 Qualified Code(s): E11.9 - Type 2 diabetes mellitus without complications (3) Mild recurrent major depression: Code(s): F33.0 - Major depressive disorder, recurrent, mild Plan Plan Patient was informed and verbally consented to the use of an ambient scribe for clinic note documentation during this visit. 1. Depression, unspecified F32.A The patient is currently managing her depression with sertraline, prescribed by her psychiatrist. Her PHQ-9 score indicates mild depression, and she will continue with her current medication regimen. 2. Type 2 diabetes mellitus without complications E11.9 HCC 19 Diabetes management includes regular monitoring of blood glucose levels, and the patient is advised to maintain her current medication regimen. 3. Encounter for general adult medical examination without abnormal findings Z00.00 Preventative care includes regular screenings such as colonoscopy, mammogram, and eye exams, which have shown normal results. The patient is advised to continue with these preventative measures. Orders: Orders IRON PROFILE Today D64.9 - Anemia, unspecified Lipid Panel Today E78.5 - Hyperlipidemia, unspecified Microalbumin, Random (w Creat) Today R80.9 - Proteinuria, unspecified Comprehensive Chambers. Panel Fast Today E11.9 - Type 2 diabetes mellitus without complications AMB Hemoglobin A1c Today E11.9 - Type 2 diabetes mellitus without complications Vitamin D 25-OH Total Today E55.9 - Vitamin D deficiency, unspecified Complete Blood Count Auto Diff Today D64.9 - Anemia, unspecified Vitamin B12 and Folate Today E53.8 - Deficiency of other specified B group vitamins Medications: New tirzepatide (Mounjaro) 7.5 mg (0.5 mL) subcut QWEEK 2 mL 0RF 4 weeks E11.9 - Type 2 diabetes mellitus without complications Refilled cholecalciferol (vitamin D3) 25 mcg PO DAILY 90 caps 1RF 90 days Quality Reporting (2019) Depression/Bipolar (159/160/161/177) PHQ-9: Total score: 8 Coding Level of Care Code Medicare Subsequent (G0439) Diagnoses Encounter for Medicare annual wellness exam Z00.00 Type 2 diabetes mellitus without complication, without long-term current use of insulin E11.9 Diabetes mellitus complication status: without complication Diabetes mellitus ferry terminal agent insulin use: without fdc use Diabetes mellitus type: type 2 Mild recurrent major depression F33.0 Additional Codes PHQ-9 - 75554 - PHQ-9 Billing: Yes ([id number]) Time Spent (min) 36 Advance Care Planning Advance Care Planning discussion: Exists, not on file Date of discussion: 11/09/24 Who was present: patient and me Forms completed: Health Care Proxy Actual minutes spent: 1 Did not discuss due to Cultural/Spiritual beliefs: Yes
[2024-11-09 09:02] VITALS: BMI 30.2
--- OUTSIDE RECORDS SUMMARY | 2024-11-09 09:32 | XMS_ITS | Clinical Summary ---
Author Organization [facility] Address [address] [place] [address] Care Team Providers Care Electric Track Switch Maintainer Name Role Phone Unavailable Primary Care Provider [...] 11/09/2012 Fecal DNA 11/09/2012 Flexible Sigmoidoscopy 11/09/2012 Imm-Pneumococcal 50+ (1 of 1 - PCV) 11/09/2017 Imm-Zoster, Recombinant (1 of 2) 11/09/2017 [id number] (3 - season) 2023 022, 07/10/2020 Alcohol and Drug Screen 03/10/2024 Depression Annual Screen 03/10/2024 Imm-Influenza (#1) 2024 01/08/2018 Cervical Ablation/Cold-Knife Conization Discontinued Cervical Cryotherapy Discontinued Colposcopy Discontinued Endometrial Biopsy Discontinued Excision/Leep Discontinued HPV Genotyping Discontinued Vaginal Pap Discontinued Vulvoscopy Discontinued [place]
--- OUTSIDE RECORDS SUMMARY | 2024-11-09 09:32 | XMS_ITS | Clinical Summary ---
Author Organization [facility] Address [address] [place] [address] Phone Care Team Providers Care Range Operator Name Role Phone Jannette Ahmadi MD Primary Care Provider [phone] Allergies Active Allergy Reactions Criticality Noted Date Comments Ciprofloxacin 02/01/2024 Lisinopril 02/01/2024 Medical History Medical History Date Comments Diabetes mellitus ([facility] V24, [facility] V28) Asthma Hypertension Migraine Social [...] 81 02/01/2024 4:08 PM EST Temperature 36.9 C (98.4 F) 02/01/2024 4:08 PM EST Respiratory Rate 18 02/01/2024 4:08 PM EST [...] 11/09/1988 Zoster Vaccines (1 of 2) 11/09/2017 Colorectal Cancer Screening: Colonoscopy 02/01/2024 HIV Screening 02/01/2024 Hepatitis C Screening 02/01/2024 Medicare Annual Wellness Visit 02/01/2024 Social Influencers of Health Screening 02/01/2024 Depression Screening 03/10/2024 COVID-19 Vaccine (3 - 2024-2 6 season) 2024 03/30/2021, 07/10/2020 Influenza Vaccine (#1) 2024 01/08/2018 DTaP,Tdap,and Td Vaccines (2 - Td or Tdap) 10/25/2031 10/24/2021 Pneumococcal Vaccine: 50+ Years Completed 10/24/2021 HIB Vaccines Aged Out No longer eligi [...] Insurance MEDICARE [place] - [place] Care Teams Range Operator Relationship Specialty Start Date End Date Jannette Ahmadi MD [address] [place] [address] PCP - General Internal Medicine 02/01/24
== END 2024-11-09 09:25 | disposition home or self-care (01) ==
PROVIDERS: PCP Internal Medicine; Visit Provider Internal Medicine
DX: Z00.00 Encounter for general adult medical examination without abnormal findings (principal); E11.9 Type 2 diabetes mellitus without complications; F33.0 Major depressive disorder, recurrent, mild